=== PATIENT | male | born 1970 | race Caucasian/White ===

== ENCOUNTER 2023-09-01 09:40 | Outpatient (OUT) | payer MEDICAID, SELFPAY ==
[2023-09-01 10:12] LABS: Basophils Absolute Auto 0.1 10^3/uL (0.0-0.1); Basophils Percent Auto 0.8 % (0.2-2.0); Eosinophils Absolute Auto 0.2 10^3/uL (0.0-0.7); Eosinophils Percent Auto 2.2 % (0.9-7.0); Hematocrit 49.7 % (42.0-54.0); Hemoglobin 16.3 g/dL (14.0-18.0); Immature Granulocytes Abs Auto 0.03 10^3/uL (0.00-0.03); Immature Granulocytes Pct Auto 0.4 % (0.0-0.5); Lymphocytes Absolute Auto 2.1 10^3/uL (1.2-3.8); Lymphocytes Percent Auto 27.2 % (20.5-60.0); Mean Corpuscular HGB Conc 32.8 g/dL (29.9-35.2); Mean Corpuscular Hemoglobin 31.5 pg (25.9-34.0); Mean Corpuscular Volume 95.9 fL (80.0-94.0); Mean Platelet Volume 10.3 fL (9.5-13.5); Monocytes Absolute Auto 0.6 10^3/uL (0.3-0.8); Monocytes Percent Auto 7.8 % (1.7-12.0); Neutrophils Absolute Auto 4.9 10^3/uL (1.4-6.5); Neutrophils Percent Auto 61.6 % (43.0-75.0); Platelet Count 352 10^3/uL (150-450); Red Blood Count 5.18 10^6/uL (4.70-6.10); Red Cell Distribution Width 12.9 % (11.0-15.0); White Blood Count 7.9 10^3/uL (4.0-11.0)
[2023-09-01 10:26] LABS: Estimated Average Glucose 114 mg/dL; Glycohemoglobin A1C 5.6 % (4.5-6.2)
[2023-09-01 10:40] LABS: Prostate Specific Antigen Scrn 0.79 ng/mL (<=4.00)
[2023-09-01 11:41] LABS: BUN Creatinine Ratio 8.1; Calcium 9.4 mg/dL (8.5-10.1); Carbon Dioxide 28.7 mmol/L (21.0-32.0); Chloride 102 mmol/L (98-107); Estimated GFR (African America 55 (>=60); Estimated GFR (Non-African Ame 45 (>=60); Glucose 105 mg/dL (74-106); Potassium 3.7 mmol/L (3.5-5.1); Sodium 141 mmol/L (136-145)
[2023-09-01 11:42] LABS: Alanine Aminotransferase 33 U/L (16-63); Albumin Globulin Ratio 0.7; Albumin Level 3.4 g/dL (3.4-5.0); Alkaline Phosphatase 58 U/L (46-116); Aspartate Amino Transferase 22 U/L (15-37); Bilirubin Total 0.5 mg/dL (0.2-1.0); Globulin 4.6 g/dL
[2023-09-01 11:43] LABS: Chol HDL Ratio 4.1; Cholesterol 223 mg/dL (<=200); Free T3 2.57 pg/mL (2.18-3.98); HDL Cholesterol 54 mg/dL (40-60); Thyroid Stimulating Hormone 1.481 uIU/mL (0.358-3.740); Triglycerides 182 mg/dL (<=150); VLDL CHOLESTEROL 36.4 mg/dL
== END 2023-09-01 09:41 | disposition home or self-care (01) ==
LOC: LAB 09:43
PROVIDERS: PCP Family Medicine; Visit Provider Family Medicine
DX: R30.0 Dysuria (principal); E78.5 Hyperlipidemia, unspecified; R73.09 Other abnormal glucose; Z12.5 Encounter for screening for malignant neoplasm of prostate
CPT/HCPCS: 36415; 80053; 80061; 83036; 84436; 84443; 84481; 85025; G0103

== ENCOUNTER 2023-09-08 10:48 | Outpatient (OUT) | payer MEDICAID, SELFPAY ==
--- NOTE | 2023-09-08 | US_ITS ---
The [address] [address] Patient Name: PHILIPPE PHILLIP MRN: [id number] date: 1970 Sex: M Assigned Patient Location: US Current Patient Location: US Accession/Order Number: [id number] Exam Date: 09/08/2023 10:52 Report Date: 09/08/2023 11:43 At the request of: SAYRA WHITFIELD Procedure: US renal bladder EXAM: US renal bladder HISTORY: . Disorder of kidney and ureter N28.9 . COMPARISON: None. TECHNIQUE: Grayscale and color imaging was performed FINDINGS: Scanning of the right kidney demonstrates right kidney to measure 10.4 x 5.4 x 7.1 cm. Color-flow is noted. Within the renal pelvis there is marked hydronephrosis. There is also hypoechoic areas of the dilated calyces. Findings could represent the calculi in the region. There is slight renal cortical thinning on the right. Left kidney measures 10.7 x 4.9 x 6.5 cm. Color-flow is noted. No solid renal cortical masses or hydronephrosis is noted. Scanning of the bladder demonstrates the filled bladder volume was 745 mL. Within the base of the bladder there is a lobulated extensive echogenic solid mass measuring 6.4 x 5.9 x 6 cm. There is also a small amount amount of debris layering within the bladder. Post void residual was 362 mL. Left ureteral jet was noted. No right ureteral jet was noted. US/US renal bladder IMPRESSION: 1 marked hydronephrosis of the right kidney. There are questionable calcifications present and the calyces. 2. There is a lobulated solid mass in the base of the bladder measuring 6.4 x 5.9 x 6 cm. A neoplasm must be considered until proven otherwise. This could be causing Obstruction of the right ureter and the right hydronephrosis. 3. Left kidney appears unremarkable and no hydronephrosis is noted. 4. Left ureteral jet was noted. Right ureteral jet was not appreciated. 5. Post void residual was [address] of the abdomen and pelvis pre and post IV contrast is suggested for further evaluation. Electronically authenticated by: LORI LEDESMA Date: 09/08/2023 11:43
--- OUTSIDE RECORDS SUMMARY | 2023-09-08 10:50 | XMS_ITS | CCD ---
Author Name Unknown Address [facility] [place] [address] Organization [facility] Care Team Providers Care Machine Cloth Trimmer Name Role Phone DR SAYRA WHITFIELD Admitting Unavailable DR SAYRA WHITFIELD Attending Unavailable Encounters Encounter Date Encounter Type Care Provider Facility Start: 06-28-[address] SAYRA WHITFIELD Facility : Payers Date Payer Category Payer Unknown [id number] 1958 Self-pay [id number] Summary Purpose Family History No Family History Records Found Advance Directives No Advanced Directives Records Found Additional Source Comments (unrecognized sect ion and content) No Status Records Found INFORMATION SOURCE (unrecogn ized section and content) DATE CREATED AUTHOR 06/29/2022 The [facility] FOR RECORDS PERTAINING TO PATIENTS WHO ARE OR HAVE BEEN ENROLLED IN A CHEMICAL DEPENDENCY/SUBSTANCEABUSE PROGRAM, SOME INFORMATION MAY BE OMITTED. This clinical summary was aggregated from multiple sources. Caution should be exercised in using it in the provision of clinical care. This summary normalizes information from multiple sources, and as a consequence, information in this document may materially change the coding, format and clinical context of patient data. In addition, data may be omitted in some cases. CLINICAL DECISIONS SHOULD BE BASED ON THE PRIMARY CLINICAL RECORDS. [employer] [facility]. provides no warranty or guarantee of the accuracy or completeness of information in this document.
== END 2023-09-08 10:49 | disposition home or self-care (01) ==
LOC: US 10:48
PROVIDERS: PCP Family Medicine; Visit Provider Family Medicine
DX: N26.9 Renal sclerosis, unspecified (principal); N32.9 Bladder disorder, unspecified; N13.30 Unspecified hydronephrosis
CPT/HCPCS: 76770

== ENCOUNTER 2023-09-15 08:41 | Outpatient (OUT) | payer MEDICAID, SELFPAY ==
--- NOTE | 2023-09-15 | CT_ITS ---
[address] [address] Patient Name: PHILIPPE Perkins [facility] MRN: [id number] date: 1970 Sex: M Assigned Patient Location: CT Current Patient Location: Accession/Order Number: [id number] Exam Date: 09/15/2023 09:25 Report Date: 09/16/2023 17:42 At the request of: SAYRA WHITFIELD Procedure: CT abdomen pelvis wo/w con EXAM: CT abdomen pelvis wo/w con HISTORY: R93.89 COMPARISON: None. TECHNIQUE: Axial CT imaging was performed with and without contrast through the abdomen and pelvis. Multiplanar reformats were performed. Dose reduction techniques were achieved by using automated exposure control and/or adjustment of mA and/or kV according to patient size and/or use of iterative reconstruction technique. FINDINGS: Lung bases: Lung bases are clear. No pleural effusion. GI upper: Unremarkable. Liver: Normal size and contour. Gallbladder: No significant abnormality. No cholelithiasis. Biliary system: No intra or extrahepatic biliary ductal dilatation. Spleen: Normal size. Pancreas: Unremarkable. Adrenal glands: Normal adrenal glands. Kidneys/ureters: Normal contours. Severe right hydroureteronephrosis with obstructing lesion at the right UV junction. No nephrolithiasis or ureterolithiasis. Vessels: No aneurysm. Lymph Nodes: No lymphadenopathy. Small bowel: No wall thickening or dilatation. Colon: No wall thickening or dilatation. Appendix: No findings of appendicitis. Peritoneal cavity: No free fluid or pneumoperitoneum. Lower : There is a 5.3 x 4.7 cm enhancing lesion arising from the right urinary bladder wall as well as base, resulting in obstruction and possible invasion of right UV junction. Finding is highly suspicious for urinary bladder neoplasm. The prostate measures 4.3 cm. Invasion of the prostate cannot be excluded. Pelvic MRI with and without contrast and cystoscopy is recommended for better evaluation. Bones: No acute bony abnormality. Soft tissues: No acute finding. Additional findings: None. CT/CT abdomen pelvis wo/w con IMPRESSION: 5.3 x 4.7 cm enhancing lesion arising from the right urinary bladder wall as well as base, resulting in possible invasion of right UV junction and right UV junction obstruction and severe right hydroureteronephrosis. Finding is highly suspicious for urinary bladder neoplasm. Invasion of the prostate cannot be excluded. Pelvic MRI with and without contrast and cystoscopy is recommended for better evaluation. Electronically authenticated by: TERESITA GALVEZ Date: 09/16/2023 17:42
--- OUTSIDE RECORDS SUMMARY | 2023-09-15 08:43 | XMS_ITS | CCD ---
Author Name Unknown Address [facility] [place] [address] Organization [facility] Care Team Providers Care Client Engagement Specialist Name Role Phone DR SAYRA WHITFIELD Admitting Unavailable DR SAYRA WHITFIELD Attending Unavailable Encounters Encounter Date Encounter Type Care Provider Facility Start: 06-28-[address] SAYRA WHITFIELD Facility : Payers Date Payer Category Payer Unknown [id number] 1958 Self-pay [id number] Summary Purpose Family History No Family History Records Found Advance Directives No Advanced Directives Records Found Additional Source Comments (unrecognized sect ion and content) No Status Records Found INFORMATION SOURCE (unrecogn ized section and content) DATE CREATED AUTHOR 06/29/2022 The [facility] FOR RECORDS PERTAINING TO PATIENTS WHO ARE [...] BE BASED ON THE PRIMARY CLINICAL RECORDS. [facility] [employer] [facility]. provides no warranty or guarantee of the accuracy or completeness of information in this document.
== END 2023-09-15 08:42 | disposition home or self-care (01) ==
LOC: CT 08:41
PROVIDERS: PCP Family Medicine; Visit Provider Family Medicine
DX: R93.89 Abnormal findings on diagnostic imaging of other specified body structures (principal); N32.9 Bladder disorder, unspecified; N13.30 Unspecified hydronephrosis
CPT/HCPCS: 74178; Q9966

== ENCOUNTER 2023-09-20 11:00 | Outpatient (OUT) | payer MEDICAID, SELFPAY ==
--- NOTE | 2023-09-20 11:05 | XR_ITS ---
The [address] [address] Patient Name: PHILIPPE PHILLIP MRN: [id number] date: 1970 Sex: M Assigned Patient Location: [facility] Current Patient Location: [facility] Accession/Order Number: [id number] Exam Date: 09/20/2023 11:40 Report Date: 09/20/2023 12:14 At the request of: ORIANA SANTIAGO Procedure: XR chest 2V PROCEDURE: XR chest 2V DATE: 09/20/2023 10:40 AM FABRICATION ENGINEER COMPARISONS: None. CLINICAL INDICATION: 53 years Male Preop exam FINDINGS: The cardiomediastinal silhouette and pulmonary vasculature are within normal limits. The lungs are clear. There is no evidence of pleural effusion or pneumothorax. XR/XR chest 2V IMPRESSION: Chest radiograph is within normal limits. Electronically authenticated by: DENA FLORES Date: 09/20/2023 12:14
--- NOTE | 2023-09-20 11:05 | ECG_ITS ---
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
--- OUTSIDE RECORDS SUMMARY | 2023-09-20 11:23 | XMS_ITS | CCD ---
Author Name Unknown Address [address] [place] [address] Organization [facility] Care Team Providers Care Business Center Attendant Name Role Phone DR SAYRA JONES Admitting Unavailable DR SAYRA JONES Attending Unavailable Sonny SANTIAGO Attending Unavailable Sonny SANTIAGO Attending Unavailable Sonny SANTIAGO Attending Unavailable Allergies Allergy Classification Reported Allergen(s) Allergy Type Date of Onset Reaction(s) Facility (1 source) No Known Medication Allergies; Translations: [No Known Medication Allergies] Propensity to adverse reactions (disorder) [facility] Repository Results Test Name Value Interpretation Reference Range Facil ity Consent for Procedure/Surger yon 09-19-2023 Consent for Procedure/Surgery [id number]#1.0 0TIFF [facility] Formson 09-19-2023 Forms [id number]#1.0 0TIFF Normal [facility] Lab Reportson 09-19-2023 Lab Reports [id number]#1.0 0TIFF Normal [facility] RAD - CT Reporton 09-19-2023 RAD - CT Report [id number]#1. 00TIFF [facility] RAD - Ultrasound Reporton RAD - Ultrasound Report [id number]#1. 00TIFF Normal [facility] Screenson 09-19-2023 Screens [id number]#1. 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 Discharge Vitals Heart Rate (Peripheral) 85 Blood Pressure 137/92 Height 178 cm Height 70 in Weight 82.7 kg Weight 181.94 lb BMI 26.1 What to do next Scheduled Follow-Up Appointments Sunday 9:45 AM EST With: Sonny SANTIAGO MD Where: [facility] Patient Educationon 09-18-19 24 Patient Education Urology Hydronephrosis Hydronephrosis is the swelling of one or both kidneys due to a blockage that stops urine from flowing out of the body. Kidneys filter waste from the blood and produce urine. This condition can lead to kidney failure and may become life-threatening if not treated promptly. What are the causes? In infants and children, common causes include problems that occur when a baby is developing in the womb. These can include problems in the kidneys or in the tubes that drain urine into the bladder (ureters). In adults, common causes include: ? Kidney stones. ? . ? A tumor or cyst in the abdomen or pelvis. ? An enlarged prostate gland. Other causes include: ? Bladder infection. ? Scar tissue from a previous surgery or injury. ? A blood clot. ? Cancer of the prostate, bladder, uterus, ovary, or colon. What are the signs or symptoms? Symptoms of this condition include: ? Pain or discomfort in your side (flank) or abdomen. ? Swelling in your abdomen. ? Nausea and vomiting. ? Fever. ? Pain when passing urine. ? Feelings of urgency when you need to urinate. ? Urinating more often than normal. In some cases, you may not have any symptoms. How is this diagnosed? This condition may be diagnosed based on: ? Your symptoms and medical history. ? A physical exam. ? Blood and urine tests. ? Imaging tests, such as an ultrasound, CT scan, or MRI. ? A procedure to look at your urinary tract and bladder by inserting a scope into the urethra (cystoscopy). How is this treated? Treatment for this condition depends on where the blockage is, how long it has been there, and what caused it. The goal of treatment is to remove the blockage. Treatment may include: ? Antibiotic medicines to treat or prevent infection. ? A procedure to place a small, thin tube (stent) into a blocked ureter. The stent will keep the ureter open so that urine can drain through it. ? A nonsurgical procedure that crushes kidney stones with shock waves (extracorporeal shock wave lithotripsy). ? If kidney failure occurs, treatment may include dialysis or a kidney transplant. Follow these instructions at home: ? Take gtqu-lzl-tejjgis and prescription medicines only as told by your health care provider. ? If you were prescribed an antibiotic medicine, take it exactly as told by your health care provider. Do not stop taking the antibiotic even if you start to feel better. ? Rest and return to your normal activities as told by your health care provider. Ask your health care provider what activities are safe for you. ? Drink enough fluid to keep your urine pale yellow. ? Keep all follow-up visits. This is important. Contact a health care provider if: ? You continue to have symptoms after treatment. ? You develop new symptoms. ? Your urine becomes cloudy or bloody. ? You have a fever. Get help right away if: ? You have severe flank or abdominal pain. ? You cannot drink fluids without vomiting. Summary ? Hydronephrosis is the swelling of one or both kidneys due to a blockage that stops urine from flowing out of the body. ? Hydronephrosis can lead to kidney failure and may become life-threatening if not treated promptly. ? The goal of treatment is to remove the blockage. It may include a procedure to insert a stent into a blocked ureter, a procedure to break up kidney stones, or taking antibiotic medicines. ? Follow your health care provider's instructions for taking care of yourself at home, including instructions about drinking fluids, taking medicines, and limiting activities. This information is not intended to replace advice given to you by your health care provider. Make sure you discuss any questions you have with your health care provider. Document Revised: 11/16/2020 Document Reviewed: 11/16/2020 Elsevier Patient Education ? 2022 [employer]. Normal [facility] Provider Letteron 09-18-2023 Provider Letter September 18, 2023 PH[facility]PE [facility] [address] [place] [address] : 1970 To Whom It May Concern, Please excuse above patient from work. Date of Illness: From: 09/18/[address] Santiago 09/20/23 -Presurgery testing appointment at [facility] 09/27/23- Surgery at [facility] 10/08/23- Follow up appointment after surgery To: to be determined May Return to Work On: 09/19/23 Restrictions: N/A Comments: Patient is having a surgical procedure with Dr. Santiago on 09/27/23 at the [facility] to remove a bladder mass. Please excuse him for the required testing and appointments. Sincerely, [facility] Dr. Sonny Santiago [facility] Urology Office/Clinic Noteon 09-18-2023 Urology Office/Clinic Note HPI Staff Burrell is a 53 y.o. male new patient here for bladder mass w/ hydronephrosis. Referred by Dr. Jones. CT abd/p done on 09/15/23 showed 5.3x4.7cm enhancing lesion arising from the urinary bladder wall as well as base, resulting in possible invasion of RT UV junction, sever RT hydroureteronephrosis. Renal US done on 09/08/23 showed marked hydronephrosis of RT kidney, lobulated solid mass in the base of the bladder measuring 6.4x5.9x6cm, post void residual 362mL. Dysuria: yes painful Incomplete bladder emptying: yes Hematuria: yes last seen 3 days ago Frequency: yes Urgency: yes Nocturia: every 2 hours Stream: steady stream sometimes weak depending on how much fluid intake Leaking: mild Post void dripping: denies Wearing pads/ Depends: denies Urge incontinence: denies Stress incontinence: denies Incontinence without Sensory Awareness: denies Abdominal pain: denies Flank pain: mild RT side flank pain Sexual complaints: _ History of Present Illness Tests reviewed: reviewed UA and External Records. I have reviewed the previous health record information and history for this patient from External Provider. I have reviewed and verified the staff HPI to be accurate for this encounter. There have been no associated fever, chills, flank pain, or blood in the urine. Denies any urinary infections since last encounter. Review of Systems PHQ Score Initial Depression Screen Score: 0 SCORE ROS - Provider Constitutional: denies weight loss, denies hot flashes. Eyes: denies eye problems. Gastrointestinal: denies nausea, denies vomiting. Cardiovascular: denies chest pain or angina. Integumentary: no dryness Musculoskeletal: denies musculoskeletal symptoms. ENMT: denies otolaryngeal symptoms. Respiratory: no shortness of breath. Heme/Lymph: denies easy bleeding tendency, denies easy bruising tendency. Psychiatric: no confusion, no anxiety. Genitourinary: See HPI. Physical Exam Vitals & Measurements HR: 85(Peripheral) BP: 137/92 HT: 70 in HT: 178 cm WT: 82.7 kg WT: 181.94 lb BMI: 26.1 General Appearance: alert, no distress, well nourished, well developed male. Head: normocephalic . Eyes: normal orbit and globe. ENMT: normal examination of external ears. Chest: Lungs CTA, respirations non labored. Cardiovascular: regular rate and rhythm. Abdomen: soft, non distended, no tenderness, no mass or organomegaly, no hernia. Genitourinary: normal scrotum, normal testes, normal urethra, normal epididymis, normal vas deferens/spermatic cord. Flank Pain: none. Bladder: nonpalpable. Penis: normal shaft, normal glans. Prostate: normal prostate, estimated weight 25 gms, no hard nodule observed. Lymph Nodes: unremarkable palpation of the cervical area. Skin: warm, dry, no bruising. Psychiatric: cooperative, affect appropriate for age, normal judgement, euthymic mood. Assessment/Plan 1. Bladder mass (N32.89: Other specified disorders of bladder) CT abd/p done on 09/15/23 showed 5.3x4.7cm enhancing lesion arising from the urinary bladder wall as well as base, resulting in possible invasion of RT UV junction, sever RT hydroureteronephrosis. Renal US done on 09/08/23 showed marked hydronephrosis of RT kidney, lobulated solid mass in the base of the bladder measuring 6.4x5.9x6cm, post void residual 362mL. UA today shows large blood and no signs of infection. Discussed imaging results with pt. Advised pt that there is a high chance that this is bladder cancer. Counseled pt on the next steps of testing and possible forms of treatment for the pt. Counseled pt on how important it is to get treatment if the path report shows high grade invasive bladder cancer. All questions/concerns were discussed. Pt to call the office if he encounters any issues prior. Pt acknowledges understanding. -Will schedule Cysto with TURBT, Rt Ureteroscopy, and possible Rt stent placement. The procedure risks, benefits, details, and treatment alternatives have been discussed with the patient. These include bleeding -- sometimes to the point of hemorrhaging, infection, risk of bladder perforation, recurrence of bladder tumor in 60-70% of patients, need for indwelling catheter for a variable amount of time, as well as the rare risk of needing an open operation to repair the bladder, among others. Additional therapy as well as follow-up bladder evaluation will most likely be required. Full informed consent has been obtained. Will order General anesthesia. -See #2 2. Hydronephrosis (N13.30: Unspecified hydronephrosis) Counseled pt on what the hydronephrosis could be caused from. Labs 09/01/23 - CREA 1.61 and BUN 13.0. -See #1 3. Incomplete bladder emptying (R33.9: Retention of urine, unspecified) PVR today was 234mL. Advised pt that he does not empty his bladder. Pt states that he just started to have abdominal pain when he tries to void, would barely void anything. -See #1 4. Gross hematuria (R31.0: Gross hematuria) Pt states that he had p (more content not included)... Normal [facility] Comment on above: Result Comment: Elec tronically Signed By: Sonny SANTIAGO MD\.br\Date and Time Signed: 09/18/23 09:40 EST\.br\Electronically Co-Signed By: Angle Rivas.br\Date and Time Co-Signed: 09/18/23 09:37 EST Encounters Encounter Date Encounter Type Care Provider Facility Start: 10-08-2023 ambulatory Sonny Porras ty:GREG Chauhan Start: 09-27-2023 ambulatory Sonny Underwoodi ty:[id number] Start: 09-18-2023 End: 09-19-2023 ambulatory Sonny SANTIAGO Facility:[facility] Start: 09-17-2023 ambulatory Sonny SANTIAGO Facility :[facility] Start: 06-28-2022 ambulatory SAYRA JONES Facility :[facility] Payers Date Payer Category Payer Private Health Insurance [id number] 1970 Unknown [id number] 1970 Unknown [id number] 1970 Unknown [id number] 1958 Self-pay [id number] Summary Purpose Family History No Family History Records FoundNo Family History Records Found Advance Directives No Advanced Directives Records FoundNo Advanced Directives Records Found Additional Source Comments (unrecognized sect ion and content) No Status Records FoundNo Status Records Found INFORMATION SOURCE (unrecogn ized section and content) DATE CREATED AUTHOR 06/29/2022 [facility] DATE CREATED AUTHOR AUTHOR'S JANET CALLAHAN 09/19/2023 [facility] FOR RECORDS PERTAINING TO PATIENTS WHO [...] BE BASED ON THE PRIMARY CLINICAL RECORDS. [employer] provides no warranty or guarantee of the accuracy or completeness of information in this document.
[2023-09-20 12:07] LABS: Anion Gap 10.6; BUN Creatinine Ratio 9.2; Calcium 9.2 mg/dL (8.5-10.1); Carbon Dioxide 28.6 mmol/L (21.0-32.0); Chloride 99 mmol/L (98-107); Estimated GFR (African America 58 (>=60); Estimated GFR (Non-African Ame 48 (>=60); Glucose 100 mg/dL (74-106); Potassium 4.2 mmol/L (3.5-5.1); Sodium 134 mmol/L (136-145)
[2023-09-20 12:08] LABS: Basophils Absolute Auto 0.1 10^3/uL (0.0-0.1); Basophils Percent Auto 1.1 % (0.2-2.0); Eosinophils Absolute Auto 0.1 10^3/uL (0.0-0.7); Eosinophils Percent Auto 1.7 % (0.9-7.0); Hematocrit 46.7 % (42.0-54.0); Hemoglobin 15.6 g/dL (14.0-18.0); Immature Granulocytes Abs Auto 0.02 10^3/uL (0.00-0.03); Immature Granulocytes Pct Auto 0.3 % (0.0-0.5); Lymphocytes Absolute Auto 1.7 10^3/uL (1.2-3.8); Lymphocytes Percent Auto 24.8 % (20.5-60.0); Mean Corpuscular HGB Conc 33.4 g/dL (29.9-35.2); Mean Corpuscular Hemoglobin 31.5 pg (25.9-34.0); Mean Corpuscular Volume 94.2 fL (80.0-94.0); Mean Platelet Volume 10.7 fL (9.5-13.5); Monocytes Absolute Auto 0.5 10^3/uL (0.3-0.8); Monocytes Percent Auto 7.7 % (1.7-12.0); Neutrophils Absolute Auto 4.3 10^3/uL (1.4-6.5); Neutrophils Percent Auto 64.4 % (43.0-75.0); Platelet Count 305 10^3/uL (150-450); Red Blood Count 4.96 10^6/uL (4.70-6.10); Red Cell Distribution Width 12.8 % (11.0-15.0); White Blood Count 6.7 10^3/uL (4.0-11.0)
[2023-09-20 12:09] LABS: INR 0.96; Partial Thromboplastin Time 27.2 sec (22.3-36.2); Prothrombin Time 10.2 sec (9.0-11.6)
== END 2023-09-20 11:01 | disposition home or self-care (01) ==
LOC: PST 11:01
PROVIDERS: PCP Family Medicine; Visit Provider Urology
DX: Z01.812 Encounter for preprocedural laboratory examination (principal); Z01.810 Encounter for preprocedural cardiovascular examination; R19.00 Intra-abdominal and pelvic swelling, mass and lump, unspecified site; R31.9 Hematuria, unspecified; N13.30 Unspecified hydronephrosis
CPT/HCPCS: 71046; 80048; 85025; 85610; 85730; 93005

== ENCOUNTER 2023-11-13 08:58 | Outpatient (OUT) | payer MEDICAID, SELFPAY ==
--- NOTE | 2023-11-13 09:01 | US_ITS ---
The [address] [address] Patient Name: PHILIPPE PHILLIP MRN: [id number] date: 1970 Sex: M Assigned Patient Location: Current Patient Location: Accession/Order Number: [id number] Exam Date: 11/13/2023 09:02 Report Date: 11/14/2023 09:25 At the request of: RUDY WEN Procedure: US renal bladder EXAM: US renal bladder HISTORY: . malignant neoplasm of trigone of urinary bladder C67.0 . COMPARISON: None. TECHNIQUE: Grayscale and color imaging was performed FINDINGS: Scanning of the right kidney demonstrates the right kidney to measure 9 x 4.6 x 4.2 cm. There is an echogenic area in the right renal pelvis consistent with a nephrostomy tube. There is slight hydronephrosis. No renal cortical masses are noted. Color-flow is noted. Left kidney measures 10.2 x 4.8 x 4.7 cm. Color-flow is noted. No solid renal cortical masses or hydronephrosis is noted. Scanning of the bladder demonstrates lobulations of the posterior inferior wall of the bladder. Bladder volume was 260 mL. Bilateral ureteral jets were noted. No post void residual was noted. US/US renal bladder IMPRESSION: 1. Normal-appearing left kidney. 2. Nephrostomy tube noted in the right renal pelvis. There is slight right hydronephrosis. 3. There is lobulation along the posterior inferior aspect of the bladder wall. Findings could represent debris, incomplete distention of the bladder bladder thickening, or mass. 4. Prevoid volume was 260 mL and bilateral ureteral jets were noted. 5. No post void residual. Electronically authenticated by: LORI LEDESMA Date: 11/14/2023 09:25
--- OUTSIDE RECORDS SUMMARY | 2023-11-13 09:07 | XMS_ITS | CCD ---
Author Organization [facility] Care Team Providers Care Helpdesk Administrator Name Role Phone DR SAYRA WHITFIELD Admitting Unavailable DR SAYRA WHITFIELD Attending Unavailable Sayra Whitfield Primary Care Physician Unavailable Primary Care Provider Moses Villarreal APRN.Fermín DHALIWAL Unavailable Vicente Sanchez MD Unavailable [phone] Arturo PABLO, [place] Unavailable [phone] Sonny SANTIAGO Attending Unavailable Sonny SANTIAGO Attending Unavailable Sonny SANTIAGO Admitting Unavailable Alonzo FALLobir Lauren Consulting Unavailable Sonny SANTIAGO Referring Unavailable Chelo FALL Consulting Unavailable Alonzo FALLobir R Consulting Unavailable Sonny SANTIAGO Attending Unavailable Sonny SANTIAGO Attending Unavailable Sayra Whitfield MD Primary Care Provider VENKATESH SMALL Attending Unavailable SAYRA WHITFIELD Primary Care Unavailable AHSAN RODRÍGUEZ Referring Unavailable KARUPPASAMY, KARUNAKARAVEL Attending Unava ilable CHINMAY, KARUNAKARAVEL Admitting Unava ilable Nelida Donaldson RD Unavailable VICENTE SANCHEZ Attending Unavailable SAYRA WHITFIELD Primary Care Unavailable NELIDA DONALDSON Attending UnavailSAYRA Chavez Primary Care Unavailable VICENTE SANCHEZ Referring Unavailable SAYRA WHITFIELD Primary Care Unavailable SAYRA WHITFIELD Primary Care Unavailable VICENTE SANCHEZ Attending Unavailable SAYRA WHITFIELD Primary Care Unavailable VICENTE SANCHEZ Referring Unavailable SAYRA WHITFIELD Primary Care Unavailable VENKATESH SMALL Referring Unavailable VICENTE SANCHEZ Attending Unavailable VENKATESH SMALL Referring Unavailable SAYRA WHITFIELD Primary Care Unavailable SAYRA WHITFIELD Primary Care Unavailable Allergies Allergy Classification Reported Allergen(s) Allergy Type Date of Onset Reaction(s) Facility (1 source) No Known Medication Allergies; Translations: [No Known Medication Allergies] Propensity to adverse reactions (disorder) [facility] Repository Medications Current Medications Medication Drug Class(es) Dates Sig (Normalized) Sig (Original) cephalexin 500 mg oral capsule (1 source) Cephalosporin Antibacterial Start: 09-27-2023 take 1 capsule by mouth every twelve hours cephalexin 500 mg Cap 500 mg = 1 cap(s), Oral, q12hr, # 20 cap(s), Refills(s) 0, Pharmacy: [facility]/pharmacy #[id number], 178.5, cm, 09/27/23 11:53:00 EST, Height/Length Dosing, 81, kg, 09/27/23 11:53:00 EST, Weight Dosing Start Date: 09/27/23 Status: Ordered iv contrast (will be provided with radiology test) (2 sources) Start: 10-16-2023 End: 10-17-2023 iv contrast (will be provided with radiology test) Indications: Malignant neoplasm of urinary bladder, unspecified site (HCC) CT Chest W -Inject, intravenously, once for 1 dose.No IV access, insert saline lock prior to the beginning of sedation, infusion, injection of imaging exam. Discontinue saline lock post exam. If Pt. has a central line or IVAD, may access for administration according to line specific nursing protocol. Once exam is complete flush line and de-access according to line specific nursing protocol in the CT contrast administration guidelines link. 1 Each 0 10/16/2023 10/17/2023 Active Start: 10-16-2023 End: 10-17-2023 iv contrast (will be provide d with radiology test) Indications: Malignant neoplasm of urinary bladder, unspecified site (HCC) CT Urogram WO/W Inject, intravenously, once for 1 dose.No IV access, insert saline lock prior to the beginning of sedation, infusion, injection of imaging exam. Discontinue saline lock post exam. If Pt. has a central line or IVAD, may access for administration according to line specific nursing protocol. Once exam is complete flush line and de-access according to line specific nursing protocol in the CT contrast administration guidelines link. 1 Each 0 10/16/2023 10/17/2023 Active Comment on above: CT Chest W -Inject, intravenously, once for 1 dose.No IV access, insert saline lock prior to the beginning of sedation, infusion, injection of imaging exam. Discontinue saline lock post exam. If Pt. has a central line or IVAD, may access for administration according to line specific nursing protocol. Once exam is complete flush line and de-access according to line specific nursing protocol in the CT contrast administration guidelines link. CT Urogram WO/W Inje ct, intravenously, once for 1 dose.No IV access, insert saline lock prior to the beginning of sedation, infusion, injection of imaging exam. Discontinue saline lock post exam. If Pt. has a central line or IVAD, may access for administration according to line specific nursing protocol. Once exam is complete flush line and de-access according to line specific nursing protocol in the CT contrast administration guidelines link. mirtazapine 30 mg oral tablet (17 sources) Start: 09-18-19 take 1 tablet by mouth once daily at bedtime mirtazapine 30 mg Tab 30 mg = 1 tab(s), Oral, Once a day (at bedtime), Refills(s) 0, Depression Start Date: 09/18/23 Status: Ordered Comment on above: Take 30 mg by mouth daily at bedtime. 24 hr oxybutynin chloride 10 mg extended release oral tablet (1 source) Cholinergic Muscarinic Antagonist Start: 09-27-19 take 1 tablet by mouth once daily oxybutynin 10 mg ER Tab 10 mg = 1 tab(s), Oral, Daily, # 7 tab(s), Refills(s) 0, Pharmacy: [facility]/pharmacy #[id number], 178.5, cm, 09/27/23 11:53:00 EST, Height/Length Dosing, 81, kg, 09/27/23 11:53:00 EST, Weight Dosing Start Date: 09/27/23 Status: Ordered 1000 ml sodium chloride 9 mg/ml injection (1 source) Start: 10-16-19 End: 10-16-19 0.9 % sodium chloride (NACL 0.9%) infusion Indications: Malignant neoplasm of urinary bladder, unspecified site (HCC) Administer at rate defined per CT contrast administration specifications. To be provided with radiology test. 150 mL 0 10/16/2023 10/16/2023 Active Comment on above: Administer at rate d efined per CT contrast administration specifications. To be provided with radiology test. Completed/Discontinued Medications Medication Drug Class(es) Dates Sig (Normalized) Sig (Original) ondansetron 8 mg oral tablet (13 sources) Serotonin-3 Receptor Antagonist Start: 10-24-2023 take 1 tablet by mouth every eight hours as needed ondansetron (ZOFRAN) 8 mg tablet Take 1 tablet by mouth every 8 hours as needed for nausea/vomiting. 90 tablet 1 10/24/2023 Active Comment on above: Take 1 tablet by raad th every 8 hours as needed for nausea/vomiting. prochlorperazine 10 mg oral tablet (13 sources) Phenothiazine Start: 10-24-2023 take 1 tablet by mouth every six hours as needed prochlorperazine (COMPAZINE) 10 mg tablet Take 1 tablet by mouth every 6 hours as needed. 100 tablet 1 10/24/2023 Active Comment on above: Take 1 tablet by raad th every 6 hours as needed. Problems Problem Classification Problem Date Documented Date Episodic/Chronic Cancer of bladder (20 sources) Malignant tumor of urinary bladder; Translations: [Malignant neoplasm of bladder, unspecified] Onset: 4 10-16-2023 Chronic Disorders of lipid metabolism (1 source) Hypercholesterolemia 09-18-2023 Chronic Genitourinary symptoms and ill-defined conditions (2 sources) Richard hematuria; Translations: [Incomplete emptying of bladder] 09-18-2023 Episodic Hyperplasia of prostate (1 source) Benign prostatic hypertrophy with outflow obstruction 09-18-2023 Chronic Mood disorders (2 sources) Depressive disorder; Translations: [Depression, unspecified] Onset: 4 Chronic Other aftercare (1 source) Long-term current use of drug therapy; Translations: [Other detention (current) drug therapy] Onset: 4 Episodic Other diseases of bladder and urethra (1 source) Disorder of bladder; Translations: [Other specified disorders of bladder] Onset: 4 Chronic Other diseases of bladder and urethra (1 source) Mass of urinary bladder 09-18-2023 Chronic Other diseases of kidney and ureters (5 sources) Hydronephrosis; Translations: [Other hydronephrosis] 09-18-2023 Episodic Other diseases of kidney and ureters (1 source) Unspecified hydronephrosis; Translations: [Hydronephrosis, unspecified hydronephrosis type] Onset: 4 Episodic Other screening for suspected conditions (not mental disorders or infectious disease) (1 source) Blood chemistry abnormal; Translations: [Other specified abnormal findings of blood chemistry] Onset: 4 Episodic Screening and history of mental health and substance abuse codes (1 source) Ex-smoker 09-18-2023 Episodic Results Test Name Value Interpretation Reference Range Facility Basic metabolic 2000 panelon 11-12-2023 Anion gap [Moles/Vol] 14 mmol/L Normal 9-18 [facility] Comment on above: Order Comment: Speci men Type: BLOOD SPECIMENOrdering Facility: [facility] Address: [address] [place] [address] Performed By: #### 2 4321-2 ####[facility] LABCLIA [id number] [place] [address] Calcium [Mass/Vol] 10.4 mg/dL High 8.5-10.2 [facility] Comment on above: Order Comment: Speci men Type: BLOOD SPECIMENOrdering Facility: [facility] Address: [address] [place] [address] Performed By: #### 2 4321-2 ####[facility] LABCLIA [id number] [place] [address] Chloride [Moles/Vol] 99 mmol/L Normal 97-105 [facility] Comment on above: Order Comment: Speci men Type: BLOOD SPECIMENOrdering Facility: [facility] Address: [address] [place] [address] Performed By: #### 2 4321-2 ####[facility] LABCLIA [id number] [place] [address] CO2 [Moles/Vol] 26 mmol/L Normal 22-30 [facility] Comment on above: Order Comment: Speci men Type: BLOOD SPECIMENOrdering Facility: [facility] Address: [address] [place] [address] Performed By: #### 2 4321-2 ####[facility] LABCLIA [id number] [place] [address] Creatinine [Mass/Vol] 1.41 mg/dL High 0.73-1.22 [facility] Comment on above: Order Comment: Speci men Type: BLOOD SPECIMENOrdering Facility: [facility] Address: [address] [place] [address] Performed By: #### 2 4321-2 ####[facility] LABCLIA [id number] [place] [address] Creatinine and Glomerular filtration rate.predicted panel (S/P/Bld) 60 mL/min/1.73m??? Normal >=60 [facility] Comment on above: Order Comment: Speci men Type: BLOOD SPECIMENOrdering Facility: [facility] Address: [address] [place] [address] Result Comment: Tania mated Glomerular Filtration Rate (eGFR) is calculated using the 2020 CKD-EPI creatinine equation. This equation utilizes serum creatinine, sex, and age as parameters. The creatinine assay has traceable calibration to isotope dilution-mass spectrometry. Refer to KDIGO guidelines for clinical interpretation. In patients with unstable renal function, e.g. those with acute kidney injury, the eGFR may not accurately reflect actual GFR. Performed By: #### 2 4321-2 ####[facility] LABCLIA [id number] [place] [address] Glucose [Mass/Vol] 193 mg/dL High 74-99 [facility] Comment on above: Order Comment: Speci men Type: BLOOD SPECIMENOrdering Facility: [facility] Address: [address] [place] [address] Result Comment: The [place] Diabetes Association (ADA) provides guidance for cutoff values for fasting glucose and random glucose. The ADA defines fasting as no caloric intake for at least 8 hours. Fasting plasma glucose results between 100 to 125 mg/dL indicate increased risk for diabetes (prediabetes). Fasting plasma glucose results greater than or equal to 126 mg/dL meet the criteria for diagnosis of diabetes. In the absence of unequivocal hyperglycemia, results should be confirmed by repeat testing. In a patient with classic symptoms of hyperglycemia or hyperglycemic crisis, random plasma glucose results greater than or equal to 200 mg/dL meet the criteria for diagnosis of diabetes. Reference: Standards of Medical Care in Diabetes 2016, [place] [employer]. Diabetes Care. 2016.39(Suppl 1). Performed By: #### 2 4321-2 ####[facility] LABCLIA [id number] [place] [address] Potassium [Moles/Vol] 4.1 mmol/L Normal 3.7-5.1 [facility] Comment on above: Order Comment: Speci men Type: BLOOD SPECIMENOrdering Facility: [facility] Address: [address] [place] [address] Performed By: #### 2 4321-2 ####[facility] LABCLIA [id number] [place] [address] Sodium [Moles/Vol] 139 mmol/L Normal 136-144 [facility] Comment on above: Order Comment: Speci men Type: BLOOD SPECIMENOrdering Facility: [facility] Address: [address] [place] [address] Performed By: #### 2 4321-2 ####[facility] LABCLIA [id number] [place] [address] Urea nitrogen [Mass/Vol] 25 mg/dL High 9-24 [facility] Comment on above: Order Comment: Speci men Type: BLOOD SPECIMENOrdering Facility: [facility] Address: [address] [place] [address] Performed By: #### 2 4321-2 ####[facility] LABIA [id number] [place] [address] CBC W Auto Differential pane l (Bld)on 11-12-2023 Basophils (Bld) [#/Vol] 0.05 10*3/uL Normal <0.11 [facility] Comment on above: Order Comment: Speci men Type: BLOOD SPECIMENOrdering Facility: [facility] Address: [address] [place] [address] Performed By: #### 5 7021-8 ####[facility] LABCLIA [id number] [place] [address] Basophils/100 WBC (Bld) 0.9 % Normal [facility] Comment on above: Order Comment: Speci men Type: BLOOD SPECIMENOrdering Facility: [facility] Address: [address] [place] [address] Performed By: #### 5 7021-8 ####[facility] LABCLIA [id number] [place] [address] Differential cell count method Nom (Bld) Auto Normal [facility] Comment on above: Order Comment: Speci men Type: BLOOD SPECIMENOrdering Facility: [facility] Address: [address] [place] [address] Performed By: #### 5 7021-8 ####[facility] LABCLIA [id number] [place] [address] Eosinophils (Bld) [#/Vol] 0.11 10*3/uL Normal <0.46 [facility] Comment on above: Order Comment: Speci men Type: BLOOD SPECIMENOrdering Facility: [facility] Address: [address] [place] [address] Performed By: #### 5 7021-8 ####[facility] LABCLIA [id number] [place] [address] Eosinophils/100 WBC (Bld) 2.0 % Normal [facility] Comment on above: Order Comment: Speci men Type: BLOOD SPECIMENOrdering Facility: [facility] Address: [address] [place] [address] Performed By: #### 5 7021-8 ####[facility] LABCLIA [id number] [place] [address] Erythrocyte distribution width (RBC) [Ratio] 11.9 % Normal 11.5-15.0 [facility] Comment on above: Order Comment: Speci men Type: BLOOD SPECIMENOrdering Facility: [facility] Address: [address] [place] [address] Performed By: #### 5 7021-8 ####[facility] LABCLIA [id number] [place] [address] Hematocrit (Bld) [Volume fraction] 40.9 % Normal 39.0-51.0 [facility] Comment on above: Order Comment: Speci men Type: BLOOD SPECIMENOrdering Facility: [facility] Address: [address] [place] [address] Performed By: #### 5 7021-8 ####[facility] LABIA [id number] [place] [address] Hemoglobin (Bld) [Mass/Vol] 14.0 g/dL Normal 13.0-17.0 [facility] Comment on above: Order Comment: Speci men Type: BLOOD SPECIMENOrdering Facility: [facility] Address: [address] [place] [address] Performed By: #### 5 7021-8 ####[facility] LABCLIA [id number] [place] [address] Immature granulocytes (Bld) [#/Vol] 0.04 10*3/uL Normal <0.10 [facility] Comment on above: Order Comment: Speci men Type: BLOOD SPECIMENOrdering Facility: [facility] Address: [address] [place] [address] Performed By: #### 5 7021-8 ####[facility] LABCLIA [id number] [place] [address] Immature granulocytes/100 WBC (Bld) 0.7 % Normal [facility] Comment on above: Order Comment: Speci men Type: BLOOD SPECIMENOrdering Facility: [facility] Address: [address] [place] [address] Performed By: #### 5 7021-8 ####[facility] LABCLIA [id number] [place] [address] Lymphocytes (Bld) [#/Vol] 1.44 10*3/uL Normal 1.00-4.00 [facility] Comment on above: Order Comment: Speci men Type: BLOOD SPECIMENOrdering Facility: [facility] Address: [address] [place] [address] Performed By: #### 5 7021-8 ####[facility] LABCLIA [id number] [place] [address] Lymphocytes/100 WBC (Bld) 25.9 % Normal [facility] Comment on above: Order Comment: Speci men Type: BLOOD SPECIMENOrdering Facility: [facility] Address: [address] [place] [address] Performed By: #### 5 7021-8 ####[facility] LABIA [id number] [place] [address] MCH (RBC) [Entitic mass] 31.1 pg Normal 26.0-34.0 [facility] Comment on above: Order Comment: Speci men Type: BLOOD SPECIMENOrdering Facility: [facility] Address: [address] [place] [address] Performed By: #### 5 7021-8 ####[facility] LABCLIA [id number] [place] [address] MCHC (RBC) [Mass/Vol] 34.2 g/dL Normal 30.5-36.0 [facility] Comment on above: Order Comment: Speci men Type: BLOOD SPECIMENOrdering Facility: [facility] Address: [address] [place] [address] Performed By: #### 5 7021-8 ####[facility] LABIA [id number] [place] [address] MCV (RBC) [Entitic vol] 90.9 fL Normal 80.0-100.0 [facility] Comment on above: Order Comment: Speci men Type: BLOOD SPECIMENOrdering Facility: [facility] Address: [address] [place] [address] Performed By: #### 5 7021-8 ####[facility] LABCLIA [id number] [place] [address] Monocytes (Bld) [#/Vol] 0.41 10*3/uL Normal <0.87 [facility] Comment on above: Order Comment: Speci men Type: BLOOD SPECIMENOrdering Facility: [facility] Address: [address] [place] [address] Performed By: #### 5 7021-8 ####[facility] LABCLIA [id number] [place] [address] Monocytes/100 WBC (Bld) 7.4 % Normal [facility] Comment on above: Order Comment: Speci men Type: BLOOD SPECIMENOrdering Facility: [facility] Address: [address] [place] [address] Performed By: #### 5 7021-8 ####[facility] LABCLIA [id number] [place] [address] Neutrophils (Bld) [#/Vol] 3.50 10*3/uL Normal 1.45-7.50 [facility] Comment on above: Order Comment: Speci men Type: BLOOD SPECIMENOrdering Facility: [facility] Address: [address] [place] [address] Performed By: #### 5 7021-8 ####[facility] LABCLIA [id number] [place] [address] Neutrophils/100 WBC (Bld) 63.1 % Normal [facility] Comment on above: Order Comment: Speci men Type: BLOOD SPECIMENOrdering Facility: [facility] Address: [address] [place] [address] Performed By: #### 5 7021-8 ####[facility] LABCLIA [id number] [place] [address] Nucleated RBC (Bld) [#/Vol] 10*3/uL Normal <0.01 [facility] Comment on above: Order Comment: Speci men Type: BLOOD SPECIMENOrdering Facility: [facility] Address: [address] [place] [address] Performed By: #### 5 7021-8 ####[facility] LABCLIA [id number] [place] [address] Nucleated RBC/100 WBC (Bld) [Ratio] 0.0 /100 WBC Normal [facility] Comment on above: Order Comment: Speci men Type: BLOOD SPECIMENOrdering Facility: [facility] Address: [address] [place] [address] Performed By: #### 5 7021-8 ####[facility] LABCLIA [id number] [place] [address] Platelet mean volume (Bld) [Entitic vol] 9.8 fL Normal 9.0-12.7 [facility] Comment on above: Order Comment: Speci men Type: BLOOD SPECIMENOrdering Facility: [facility] Address: [address] [place] [address] Performed By: #### 5 7021-8 ####[facility] LABIA [id number] [place] [address] Platelets (Bld) [#/Vol] 221 10*3/uL Normal 150-400 [facility] Comment on above: Order Comment: Speci men Type: BLOOD SPECIMENOrdering Facility: [facility] Address: [address] [place] [address] Performed By: #### 5 7021-8 ####[facility] LABIA [id number] [place] [address] RBC (Bld) [#/Vol] 4.50 10*6/uL Normal 4.20-6.00 [facility] Comment on above: Order Comment: Speci men Type: BLOOD SPECIMENOrdering Facility: [facility] Address: [address] [place] [address] Performed By: #### 5 7021-8 ####[facility] LABCLIA [id number] [place] [address] WBC (Bld) [#/Vol] 5.55 10*3/uL Normal 3.70-11.00 [facility] Comment on above: Order Comment: Speci men Type: BLOOD SPECIMENOrdering Facility: [facility] Address: [facility] [place] [address] Performed By: #### 5 7021-8 ####[facility] LABCLIA [id number] [place] [address] Mayda 11-12-2023 CNPN Telephone (NUTRSA) ----- INDRA OLIVAREZ ([id number]) 1970 [facility] Date Time Provider Department 11/12/23 NELIDA DONALDSON During your visit today, we recorded the following information about you: Nelida Donaldson RD 11/12/2023 12:06 PM Signed Notified by outreach and education social worker that financial assessment completed and patient with need for assistance in obtaining ONS. Dietitian assessment previously completed and CMN for determination if Medicaid will cover ONS pending. Patient provided with 12 Boost High Protein courtesy of the [facility] ONS project here at the [facility] to help bridge the gap until insurance determination completed. Patient aware of dietitian follow up on 11/25 to reassess need for ONS and if Medicaid approved. Nelida Donaldson MS, RDN, LD Allergies As of Date: 11/12/2023 (No Known Allergies) Date Reviewed: 11/12/2023 Reviewed by: Stefania Albright MA - Fully Assessed Reason for Visit: ONS [Other] Prescriptions as of 11/12/2023 - ondansetron (ZOFRAN) 8 mg tablet Take 1 tablet by mouth every 8 hours as needed for nausea/vomiting. - prochlorperazine (COMPAZINE) 10 mg tablet Take 1 tablet by mouth every 6 hours as needed. - mirtazapine (REMERON) 30 mg tablet Take 30 mg by mouth daily at bedtime. Facility-Administered Medications as of 11/12/2023 - CISplatin 72.8 mg in NaCl 0.9% 1,122.8 mL (PLATINOL) - NaCl 0.9% iv infusion - NaCl 0.9% iv infusion - diphenhydrAMINE 50 mg injection (BENADRYL) - hydrocortisone sodium succinate (PF) 100 mg injection (Solu-CORTEF) - EPINEPHrine 1 mg/mL (1 mL) 0.3 mg injection - sodium chloride 0.9 % (flush) 10-20 mL (BD POSIFLUSH) - sodium chloride 0.9 % (flush) 10-20 mL (BD POSIFLUSH) Problem List As Of Date 11/12/2023 Noted Resolved Malignant neoplasm of trigone of urinary bladde*10/24/2023 Encounter Status:Closed by NELIDA DONALDSON on 11/12/23 [facility] Telephone (HEMAS[place]) ----- INDRA OLIVAREZ ([id number]) 1970 [facility] Date Time Provider Department 11/09/23 ITALIA SPRINGER During your visit today, we recorded the following information about you: Italia Springer RN 11/09/2023 4:26 PM Signed CYCLE 1/DAY 1 POST TREATMENT CALL Today's date: November 09, 2023 Treatment Regimen: Cisplatin AND Gemcitabine C1D1 Date: 11/05/23 Called patient to follow-up on symptom management. Spoke with patient. SYMPTOM ASSESSMENT Neuro: Headache - Mild. Did not require Tylenol. CV/Resp: None GI/: Appetite: Describes as ok. Snacking between meals. Drinks boost as well., Fluid intake: Quite a bit. , Bladder/Urinary Changes: Emptying his catheter bag every 1 hour, and Pt reports he's noticed a small amount of mucous in his stool. Advised he continue to monitor and report if it gets worse. Integument: None Activity: Patient reported decreased energy level. Rates his fatigue 10/10. Naps, but does not always wake feeling rested. Able to complete is ADLS independently. Pain: lower back pain. Describes as noticeable. Pain is not new. Does not require meds. Fever: No Chills: No Reports that his knees seem puffy. No swelling in his lower extremities. Any new referrals needed? No Reinforced CURRENT treatment education based on current and anticipated symptoms. Discussed port/line care and patient verbalizes understanding: Not Applicable Patient instructed to contact office or after hours Hematology/Oncology fellow for: temperature ? 100.4; questions or concerns. Patient verbalized understanding of when to seek medical attention and after hours number protocol. Italia Springer RN Allergies As of Date: 11/09/2023 (No Known Allergies) Date Reviewed: 11/05/2023 Reviewed by: Nelida Donaldson RD - Fully Assessed Reason for Visit: Care Coordination [9480] Cmt: C1D1 Post Treatment Call Prescriptions as of 11/09/2023 - ondansetron (ZOFRAN) 8 mg tablet Take 1 tablet by mouth every 8 hours as needed for nausea/vomiting. - prochlorperazine (COMPAZINE) 10 mg tablet Take 1 tablet by mouth every 6 hours as needed. - mirtazapine (REMERON) 30 mg tablet Take 30 mg by mouth daily at bedtime. Problem List As Of Date 11/09/2023 Noted Resolved Malignant neoplasm of trigone of urinary bladde*10/24/2023 Encounter Status:Closed by ITALIA SPRINGER on 11/09/23 [facility] INDRA OLIVAREZ ([id number]) 1970 M [facility] Date Time Provider Department 11/06/23 NELIDA DONALDSON During your visit today, we recorded the following information about you: Nelida Donaldson RD 11/06/2023 8:18 AM Signed Patient called to let me know he has Boost Plus at home. Per nutrition assessment completed by me yesterday, he consumes 2 per day. He does mention he has been off work without pay for past 1.5 months and has some concerns about affording ONS. Neida- he is interested in receiving a phone call from you to review services available to him. Briefly discussed with him our ONS program we have here. In the meantime, I will complete a CMN to see if Medicaid will cover ONS, but he may need to provided with a couple weeks worth of ONS in the meantime while awaiting that decision. Thanks, Nelida Donaldson, MS, RDN, LD Allergies As of Date: 11/06/2023 (No Known Allergies) Date Reviewed: 11/05/2023 Reviewed by: Nelida Donaldson RD - Fully Assessed Reason for Visit: Patient Question [3814] Cmt: Oral nutrition supplements Prescriptions as of 11/08/2023 - ondansetron (ZOFRAN) 8 mg tablet Take 1 tablet by mouth every 8 hours as needed for nausea/vomiting. - prochlorperazine (COMPAZINE) 10 mg tablet Take 1 tablet by mouth every 6 hours as needed. - mirtazapine (REMERON) 30 mg tablet Take 30 mg by mouth daily at bedtime. 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/24/2023 Encounter Status:Closed by NELIDA DONALDSON on 11/08/23 Normal [facility] Basic metabolic 2000 panelon 11-05-2023 Anion gap [Moles/Vol] 12 mmol/L Normal 9-18 [facility] Comment on above: Order Comment: Speci men Type: BLOOD SPECIMENOrdering Facility: [facility] Address: [address] [place] [address] [place] [address] Performed By: #### 2 4321-2 ####[facility] LABCLIA [id number] [place] [address] Calcium [Mass/Vol] 9.8 mg/dL Normal 8.5-10.2 [facility] Comment on above: Order Comment: Speci men Type: BLOOD SPECIMENOrdering Facility: [facility] Address: [address] [place] [address] Performed By: #### 2 4321-2 ####[facility] LABCLIA [id number] [place] [address] Chloride [Moles/Vol] 101 mmol/L Normal 97-105 [facility] Comment on above: Order Comment: Speci men Type: BLOOD SPECIMENOrdering Facility: [facility] Address: [address] [place] [address] Performed By: #### 2 4321-2 ####[facility] LABCLIA [id number] [place] [address] CO2 [Moles/Vol] 25 mmol/L Normal 22-30 [facility] Comment on above: Order Comment: Speci men Type: BLOOD SPECIMENOrdering Facility: [facility] Address: [address] [place] [address] Performed By: #### 2 4321-2 ####[facility] LABCLIA [id number] [place] [address] Creatinine [Mass/Vol] 1.37 mg/dL High 0.73-1.22 [facility] Comment on above: Order Comment: Speci men Type: BLOOD SPECIMENOrdering Facility: [facility] Address: [address] [place] [address] Performed By: #### 2 4321-2 ####[facility] LABCLIA [id number] [place] [address] Creatinine and Glomerular filtration rate.predicted panel (S/P/Bld) 62 mL/min/1.73m??? Normal >=60 [facility] Comment on above: Order Comment: Speci men Type: BLOOD SPECIMENOrdering Facility: [facility] Address: [address] [place] [address] Result Comment: Tania mated Glomerular Filtration Rate (eGFR) is calculated using the 2020 CKD-EPI creatinine equation. This equation utilizes serum creatinine, sex, and age as parameters. The creatinine assay has traceable calibration to isotope dilution-mass spectrometry. Refer to KDIGO guidelines for clinical interpretation. In patients with unstable renal function, e.g. those with acute kidney injury, the eGFR may not accurately reflect actual GFR. Performed By: #### 2 4321-2 ####[facility] LABCLIA [id number] [place] [address] Glucose [Mass/Vol] 165 mg/dL High 74-99 [facility] Comment on above: Order Comment: Joe mon Type: BLOOD SPECIMENOrdering Facility: [facility] Address: [address] [place] [address] Result Comment: The [place] Diabetes Association (ADA) provides guidance for cutoff values for fasting glucose and random glucose. The ADA defines fasting as no caloric intake for at least 8 hours. Fasting plasma glucose results between 100 to 125 mg/dL indicate increased risk for diabetes (prediabetes). Fasting plasma glucose results greater than or equal to 126 mg/dL meet the criteria for diagnosis of diabetes. In the absence of unequivocal hyperglycemia, results should be confirmed by repeat testing. In a patient with classic symptoms of hyperglycemia or hyperglycemic crisis, random plasma glucose results greater than or equal to 200 mg/dL meet the criteria for diagnosis of diabetes. Reference: Standards of Medical Care in Diabetes 2016, [place] [employer] Association. Diabetes Care. 2016.39(Suppl 1). Performed By: #### 2 4321-2 ####[facility] LABCLIA [id number] [place] [address] Potassium [Moles/Vol] 4.1 mmol/L Normal 3.7-5.1 [facility] Comment on above: Order Comment: Joe mon Type: BLOOD SPECIMENOrdering Facility: [facility] Address: [address] [place] [id number] Performed By: #### 2 4321-2 ####[facility] LABCLIA [id number] [place] [address] Sodium [Moles/Vol] 138 mmol/L Normal 136-144 [facility] Comment on above: Order Comment: Speci men Type: BLOOD SPECIMENOrdering Facility: [facility] Address: [address] [place] [address] Performed By: #### 2 4321-2 ####[facility] LABCLIA [id number] [place] [address] Urea nitrogen [Mass/Vol] 13 mg/dL Normal 9-24 [facility] Comment on above: Order Comment: Speci men Type: BLOOD SPECIMENOrdering Facility: [facility] Address: [address] [place] [address] Performed By: #### 2 4321-2 ####[facility] LABCLIA [id number] [place] [address] Anion gap [Moles/Vol] 12 mmol/L 9 - 18 mmol/L [facility] Calcium [Mass/Vol] 9.8 mg/dL 8.5 - 10. 2 mg/dL [facility] Chloride [Moles/Vol] 101 mmol/L 97 - 10 5 mmol/L [facility] CO2 [Moles/Vol] 25 mmol/L 22 - 30 mmol/L [facility] Creatinine [Mass/Vol] 1.37 mg/dL High 0.73 - 1.22 mg/dL [facility] Estimated Glomerular Filtration Rate 62 mL/min/1.73m >=60 mL/min/1.73m [facility] Glucose [Mass/Vol] 165 mg/dL High 74 - 99 mg/dL [facility] Potassium [Moles/Vol] 4.1 mmol/L 3.7 - 5.1 mmol/L [facility] Sodium [Moles/Vol] 138 mmol/L 136 - 144 mmol/L [facility] Urea nitrogen [Mass/Vol] 13 mg/dL 9 - 24 mg/dL [facility] CBC W Auto Differential pane l (Bld)on 11-05-2023 Basophils (Bld) [#/Vol] 0.07 10*3/uL Normal <0.11 [facility] Comment on above: Order Comment: Speci men Type: BLOOD SPECIMENOrdering Facility: [facility] Address: [address] [place] [address] Performed By: #### 5 7021-8 ####[facility] LABCLIA [id number] [place] [address] Basophils/100 WBC (Bld) 0.8 % Normal [facility] Comment on above: Order Comment: Speci men Type: BLOOD SPECIMENOrdering Facility: [facility] Address: [address] [place] [address] Performed By: #### 5 7021-8 ####[facility] LABCLIA [id number] [place] [address] Differential cell count method Nom (Bld) Auto Normal [facility] Comment on above: Order Comment: Speci men Type: BLOOD SPECIMENOrdering Facility: [facility] Address: [address] [place] [address] Performed By: #### 5 7021-8 ####[facility] LABCLIA [id number] [place] [address] Eosinophils (Bld) [#/Vol] 0.15 10*3/uL Normal <0.46 [facility] Comment on above: Order Comment: Speci men Type: BLOOD SPECIMENOrdering Facility: [facility] Address: [address] [place] [address] Performed By: #### 5 7021-8 ####[facility] LABCLIA [id number] [place] [address] Eosinophils/100 WBC (Bld) 1.6 % Normal [facility] Comment on above: Order Comment: Speci men Type: BLOOD SPECIMENOrdering Facility: [facility] Address: [address] [place] [address] Performed By: #### 5 7021-8 ####[facility] LABCLIA [id number] [place] [address] Erythrocyte distribution width (RBC) [Ratio] 12.1 % Normal 11.5-15.0 [facility] Comment on above: Order Comment: Speci men Type: BLOOD SPECIMENOrdering Facility: [facility] Address: [address] [place] [address] Performed By: #### 5 7021-8 ####[facility] LABCLIA [id number] [place] [address] Hematocrit (Bld) [Volume fraction] 42.0 % Normal 39.0-51.0 [facility] Comment on above: Order Comment: Speci men Type: BLOOD SPECIMENOrdering Facility: [facility] Address: [address] [place] [address] Performed By: #### 5 7021-8 ####[facility] LABCLIA [id number] [place] [address] Hemoglobin (Bld) [Mass/Vol] 14.1 g/dL Normal 13.0-17.0 [facility] Comment on above: Order Comment: Speci men Type: BLOOD SPECIMENOrdering Facility: [facility] Address: [address] [place] [address] Performed By: #### 5 7021-8 ####[facility] LABCLIA [id number] [place] [address] Immature granulocytes (Bld) [#/Vol] 0.07 10*3/uL Normal <0.10 [facility] Comment on above: Order Comment: Speci men Type: BLOOD SPECIMENOrdering Facility: [facility] Address: [address] [place] [address] Performed By: #### 5 7021-8 ####[facility] LABCLIA [id number] [place] [address] Immature granulocytes/100 WBC (Bld) 0.8 % Normal [facility] Comment on above: Order Comment: Speci men Type: BLOOD SPECIMENOrdering Facility: [facility] Address: [address] [place] [address] Performed By: #### 5 7021-8 ####[facility] LABCLIA [id number] [place] [address] Lymphocytes (Bld) [#/Vol] 1.94 10*3/uL Normal 1.00-4.00 [facility] Comment on above: Order Comment: Speci men Type: BLOOD SPECIMENOrdering Facility: [facility] Address: [address] [place] [address] Performed By: #### 5 7021-8 ####[facility] LABCLIA [id number] [place] [address] Lymphocytes/100 WBC (Bld) 21.2 % Normal [facility] Comment on above: Order Comment: Speci men Type: BLOOD SPECIMENOrdering Facility: [facility] Address: [address] [place] [address] Performed By: #### 5 7021-8 ####[facility] LABCLIA [id number] [place] [address] MCH (RBC) [Entitic mass] 31.1 pg Normal 26.0-34.0 [facility] Comment on above: Order Comment: Speci men Type: BLOOD SPECIMENOrdering Facility: [facility] Address: [address] [place] [address] Performed By: #### 5 7021-8 ####[facility] LABCLIA [id number] [place] [address] MCHC (RBC) [Mass/Vol] 33.6 g/dL Normal 30.5-36.0 [facility] Comment on above: Order Comment: Speci men Type: BLOOD SPECIMENOrdering Facility: [facility] Address: [address] [place] [address] Performed By: #### 5 7021-8 ####[facility] LABCLIA [id number] [place] [address] MCV (RBC) [Entitic vol] 92.7 fL Normal 80.0-100.0 [facility] Comment on above: Order Comment: Speci men Type: BLOOD SPECIMENOrdering Facility: [facility] Address: [address] [place] [address] Performed By: #### 5 7021-8 ####[facility] LABCLIA [id number] [place] [address] Monocytes (Bld) [#/Vol] 0.84 10*3/uL Normal <0.87 [facility] Comment on above: Order Comment: Speci men Type: BLOOD SPECIMENOrdering Facility: [facility] Address: [address] [place] [address] Performed By: #### 5 7021-8 ####[facility] LABCLIA [id number] [place] [address] Monocytes/100 WBC (Bld) 9.2 % Normal [facility] Comment on above: Order Comment: Speci men Type: BLOOD SPECIMENOrdering Facility: [facility] Address: [address] [place] [address] Performed By: #### 5 7021-8 ####[facility] LABCLIA [id number] [place] [address] Neutrophils (Bld) [#/Vol] 6.08 10*3/uL Normal 1.45-7.50 [facility] Comment on above: Order Comment: Speci men Type: BLOOD SPECIMENOrdering Facility: [facility] Address: [address] [place] [address] Performed By: #### 5 7021-8 ####[facility] LABCLIA [id number] [place] [address] Neutrophils/100 WBC (Bld) 66.4 % Normal [facility] Comment on above: Order Comment: Speci men Type: BLOOD SPECIMENOrdering Facility: [facility] Address: [address] [place] [address] Performed By: #### 5 7021-8 ####[facility] LABCLIA [id number] [place] [address] Nucleated RBC (Bld) [#/Vol] 10*3/uL Normal <0.01 [facility] Comment on above: Order Comment: Speci men Type: BLOOD SPECIMENOrdering Facility: [facility] Address: [address] [place] [address] Performed By: #### 5 7021-8 ####[facility] LABCLIA [id number] [place] [address] Nucleated RBC/100 WBC (Bld) [Ratio] 0.0 /100 WBC Normal [facility] Comment on above: Order Comment: Speci men Type: BLOOD SPECIMENOrdering Facility: [facility] Address: [address] [place] [address] Performed By: #### 5 7021-8 ####[facility] LABIA [id number] [place] [address] Platelet mean volume (Bld) [Entitic vol] 10.5 fL Normal 9.0-12.7 [facility] Comment on above: Order Comment: Speci men Type: BLOOD SPECIMENOrdering Facility: [facility] Address: [address] [place] [address] Performed By: #### 5 7021-8 ####[facility] LABCLIA [id number] [place] [address] Platelets (Bld) [#/Vol] 234 10*3/uL Normal 150-400 [facility] Comment on above: Order Comment: Speci men Type: BLOOD SPECIMENOrdering Facility: [facility] Address: [address] [place] [address] Performed By: #### 5 7021-8 ####[facility] LABCLIA [id number] [place] [address] RBC (Bld) [#/Vol] 4.53 10*6/uL Normal 4.20-6.00 [facility] Comment on above: Order Comment: Speci men Type: BLOOD SPECIMENOrdering Facility: [facility] Address: [address] [place], [place] [address] Performed By: #### 5 7021-8 ####[facility] LABIA [id number] [place] [address] WBC (Bld) [#/Vol] 9.15 10*3/uL Normal 3.70-11.00 [facility] Comment on above: Order Comment: Speci men Type: BLOOD SPECIMENOrdering Facility: [facility] Address: [address] [place], [place] [address] Performed By: #### 5 7021-8 ####[facility] LABIA [id number] [place] [address] Basophils (Bld) [#/Vol] 0.07 10*3/uL <0.11 k/uL [facility] Basophils/100 WBC (Bld) 0.8 % [facility] Differential cell count method Nom (Bld) Auto [facility] Eosinophils (Bld) [#/Vol] 0.15 10*3/uL <0.46 k/uL [facility] Eosinophils/100 WBC (Bld) 1.6 % [facility] Erythrocyte distribution width (RBC) [Ratio] 12.1 % 11.5 - 15.0 % [facility] Hematocrit (Bld) [Volume fraction] 42.0 % 39.0 - 51.0 % [facility] Hemoglobin (Bld) [Mass/Vol] 14.1 g/dL 13.0 - 17.0 g/dL [facility] Immature granulocytes (Bld) [#/Vol] 0.07 10*3/uL <0.10 k/uL [facility] Immature granulocytes/100 WBC (Bld) 0.8 % [facility] Lymphocytes (Bld) [#/Vol] 1.94 10*3/uL 1.00 - 4.00 k/uL [facility] Lymphocytes/100 WBC (Bld) 21.2 % [facility] MCH (RBC) [Entitic mass] 31.1 pg 26.0 - 34.[address] [facility] MCHC (RBC) [Mass/Vol] 33.6 g/dL 30.5 - 36.0 g/dL [facility] MCV (RBC) [Entitic vol] 92.7 fL 80.0 - 100.[address] [facility] Monocytes (Bld) [#/Vol] 0.84 10*3/uL <0.87 k/uL [facility] Monocytes/100 WBC (Bld) 9.2 % [facility] Neutrophils (Bld) [#/Vol] 6.08 10*3/uL 1.45 - 7.50 k/uL [facility] Neutrophils/100 WBC (Bld) 66.4 % [facility] Nucleated RBC (Bld) [#/Vol] <0.01 k/uL [facility] Nucleated RBC/100 WBC (Bld) [Ratio] 0.0 /[address] [facility] Platelet mean volume (Bld) [Entitic vol] 10.5 fL 9.0 - 12.[address] [facility] Platelets (Bld) [#/Vol] 234 10*3/uL 150 - 400 k/uL [facility] RBC (Bld) [#/Vol] 4.53 10*6/uL 4.20 - 6.0 0 m/uL [facility] WBC (Bld) [#/Vol] 9.15 10*3/uL 3.70 - 11. 00 k/uL [facility] CNOVSPon 11-05-2023 CNOVSP Visit (SP) Office ([place]) ----- SHERINDRA A ([id number]) 1970 M [facility] Date Time Provider Department 11/05/23 9:30 AM VICENTE SANCHEZ During your visit today, we recorded the following information about you: Temperature Pulse Respiration Blood pressure 97.2 degrees 114/minute 18/minute 140/67 Weight Height 89.2 kg 1.745 m Vicente Sanchez MD 11/05/2023 12:54 PM Signed PATIENT NAME: Indra Olivarez DATE: 11/05/2023 PRIMARY CARE PHYSICIAN: Dr. Whitfield OTHER PHYSICIANS: Dr. Santiago, Dr. Venkatesh Small Portions of this encounter note have been copied from my note from 10/23/2023 and has been updated where appropriate, and reflect my current medical decision making from today. CC: This is a 53 year old male with recently diagnosed invasive bladder cancer, seen for scheduled follow-up and treatment. INTERIM HISTORY: Since the patient's initial visit here he underwent placement of a percutaneous right-sided nephrostomy tube on 11/02/2023. He tolerated the procedure well. His ostomy is functioning well with significant urine output. He is also urinating without difficulties. He has had no other significant medical changes. Currently feels well and is ready to proceed with chemotherapy as planned. MEDICATIONS: Current Outpatient Medications Medication Sig ondansetron (ZOFRAN) 8 mg tablet Take 1 tablet by mouth every 8 hours as needed for nausea/vomiting. prochlorperazine (COMPAZINE) 10 mg tablet Take 1 tablet by mouth every 6 hours as needed. mirtazapine (REMERON) 30 mg tablet Take 30 mg by mouth daily at bedtime. No current facility-administered medications for this visit. ALLERGIES: ALLERGIES No Known Allergies PAST MEDICAL HISTORY: PAST MEDICAL HISTORY Diagnosis Date Bladder cancer (HCC) BPH (benign prostatic hyperplasia) Depression Former smoker High cholesterol Hydronephrosis PAST SURGICAL HISTORY: PAST SURGICAL HISTORY Procedure Laterality Date COLONOSCOPY FAMILY HISTORY: FAMILY HISTORY Problem Relation Age of Onset Cervical Cancer Mother Heart disease Father Hypertension Father Hyperlipidemia Father Diabetes Sister Diabetes Maternal Grandmother Emphysema Paternal Grandmother Heart disease Paternal Grandfather SOCIAL HISTORY: Social History Tobacco Use Smoking status: Former Packs/day: 1 Types: Cigarettes Smokeless tobacco: Former Vaping Use Vaping Use: current everyday user Substances: Nicotine, Flavoring Devices: Disposable Substance Use Topics Alcohol use: Yes Drug use: Never COMPLETE REVIEW OF SYSTEMS: CONSTITUTION: Negative for pain, fatigue, weight loss, or appetite loss. EENT: Negative for mouth soreness, antibiotics use, epistaxis, visual problems, neck or facial swelling, fever/chills, bleeding gums, or hearing loss. CV: Negative for edema, calf swelling, palpitations, or chest pain. RESPIRATORY: Negative for cough, SOB, hemoptysis, or wheezing. GI: Negative for nausea/vomiting, heartburn, vomiting blood, dysphasia, diarrhea, blood in stool, constipation, early satiety, PICA, vegetarian, poor nutrition, abdominal fullness, or abdominal pain. NEUROLOGICAL: Negative for numbness/tingling, dizziness, gait disturbance, headache, speech disturbance, tremor, hemiparesis/sensory loss, or change in mental status. MUSCULOSKELETAL: Negative for joint pain, joint swelling, or proximal muscle weakness. SKIN: Negative for hair loss, bruising, nail changes, rash, itching, pallor, or jaundice. ENDO/URO: Negative for hot flashes, cold or heat intolerance, urinary frequency, urinary hesitancy, menorrhagia, or hematuria. PSYCH: Negative for anxiety, depression, or other. PHYSICAL EXAM: BP 140/67 Pulse 114 Temp 36.2 ?C (97.2 ?F) (Temporal) Resp 18 Ht 174.5 cm (5' 8.7 ) Wt 89.2 kg (196 lb 10.4 oz) SpO2 98% BMI 29.29 kg/m? GENERAL EXAM: Well developed/well nourished; in no acute distress. SKIN: Negative for lesions, rashes, or ulcers on the upper and lower extremities and face. Negative for palpations/nodules, purpura, and ecchymosis. EENT: Negative for conjunctiva, mucosal pallor, JVD, LAP, thyromegaly, and glossitis. Supple AND PERRL. EXTREMITIES: Negative for cyanosis, clubbing, and crepitus. LUNGS: Negative to auscultation, respiratory effort, and percussion. CARDIOVASCULAR: Regular rate. Negative for murmurs/S3S4/abnormal sounds, edema, and carotid bruits. ABDOMEN: Negative for masses, hernia, and spleen/liver abnormalities. RECTAL: Not done PSYCHIATRIC: Negative for mood/affect changes, recent AND remote memory changes, and judgement and insight. NEUROLOGICAL: Alert, oriented x person, place, time. Cranial nerves 2-12 intact. Sensory for pain, light touch, vibration intact on all 4 extremities. Reflexes symmetric for biceps/brachioradial/alanis lla/achilles. MUSCULOSKELETAL: Negative examination of (more content not included)... Normal [facility] BRIEF OP NOTon 11-02-2023 BRIEF OP NOT HNO ID: [id number] Author: MONICA VAZQUEZ MD Service: Radiology Author Type: Physician Type: Brief Op Note Filed: 11/02/2023 09:29 Note Text: OPERATIVE/PROCEDURE REPORT LOG ID: [id number] SURGERY/PROCEDURE DATE: 11/02/2023 INCISION/PROCEDURE START TIME: 8:44 AM INCISION CLOSE/PROCEDURE END TIME: 9:16 AM SURGEON(S)/PROCEDURALIST( S) AND STAFF RESEARCH SCIENTIST(S): Surgeon(s) and Role: * Monica Vazquez MD - Primary No Additional Staff SURGERY/PROCEDURE(S): Right 8F nephroureteral catheter placed and connected to a bag for external drainage. Patient to contact his urologist Dr Small on when to attempt capping trial. ANESTHESIA: Procedural Sedation SURGERY/PROCEDURE DETAILS: see above PRE-OP/PRE-PROCEDURE DIAGNOSIS: hydronephrosis POST-OP/POST-PROCEDURE DIAGNOSIS: Same as Preop ESTIMATED BLOOD LOSS: 5 mls SPECIMENS: None IMPLANTABLE DEVICES: NONE DRAINS: None COMPLICATIONS: None CLOSURE TECHNIQUE: Primary PARTICIPATION IN SURGERY/PROCEDURE: I/primary surgeon/proceduralist performed the procedure with assistance. SIGNATURE: Monica Vazquez MD PATIENT NAME: Indra Olivarez DATE: November 02, 2023 TIME: 9:28 AM 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 The contents accurately reflect the patient's condition with the following additions or revisions since the HANDP was completed. ASA Class: ASA Class:: Normal healthy patient Examination indicates no changes. AIRWAY: Airway Visualization of Uvula: Yes Mouth opening greater than 2 fingerbreadths: Yes Neck Full Range of Motion: Yes LUNGS: Lungs clear to auscultation CARDIAC: Regular rhythm,Regular rate Provisional Diagnosis/Treatment Plan: Right nephrostomy/nephrouretera l catheter placement SEDATION GOAL: Moderate This HANDP can be found in the Electronic Medical Record dated 10/16/2023. SIGNATURE: Monica Vazquez MD PATIENT NAME: Indra Olivarez DATE: November 02, 2023 TIME: 8:19 AM [facility] IR PLACE NEPH TUBEon [address]BE * * *Final Report* * * DATE OF EXAM: Nov 02 2023 9:23AM [facility] 0779 - IR PLACE NEPH TUBE / PROCEDURE REASON: Hydronephrosis, unspecified hydronephrosis type [N13.30] * * * * Physician Interpretation * * * * PROCEDURE: PERCUTANEOUS RIGHT NEPHROURETERAL CATHETER PLACEMENT HISTORY: Urology request: Please place right nephrostomy tube and attempt antegrade nephroureteral catheter placement. If able to place nephroureteral catheter, I would like it placed to gravity drainage to start, we will consider clamping trial to assess appropriateness for conversion to ureteral stent 1-2 weeks after placement. Patient to undergo neoadjuvant chemotherapy before planned cystectomy CONSENT: Risks, benefits, treatment options, potential complications and personnel to be involved were discussed (including the risks of radiation exposure, contrast and anesthesia administration, and any equipment needed for the procedure to ensure best possible outcome) with the patient and all questions were answered and consent was obtained prior to procedure. MEDICATION RECONCILIATION: The patient's medications and allergies were reviewed in the electronic medical record and reconciled to the proposed procedure/treatment. MARGOT-PROCEDURE DISCUSSION: The appropriate elements of the pre-procedure discussion, safety check list and sign-out were performed. TIME OUT: A time out was performed immediately prior to procedure start with the nursing, and interventional team, correctly identifying the name, date of , procedure, anatomy (including marking of site and side if applicable), patient position, procedure consent form, relevant diagnostic and radiology test results, antibiotic administration if applicable, safety precautions, and procedure-specific equipment needs. Start of procedure (Time out): 843 End of procedure (Sign out): 915 Patient position: Prone Anesthesia: After establishing pulse oximetry, BP and EKG monitoring by the Radiology nurse, moderate sedation with Versed and Fentanyl was administered. Intra-service time (monitoring for moderate sedation): 41 minutes Patient monitoring: I personally supervised and directed an independent trained observer who assisted in monitoring the patient?s level of consciousness and physiological status throughout the procedure. Local anesthesia: 2 % lidocaine ANTIBIOTICS: Rocephin Antibiotic infusion start time: 827 CONTRAST DOSE: 25 mL cc of OMNIPAQUE 350 was injected into the urinary system during the procedure. IMAGE GUIDANCE: Access was obtained into the target under direct sonographic and fluoroscopic visualization. A sonographic image was obtained and placed into the permanent archive for documentation FLUOROSCOPIC RADIATION SUMMARY: Plane A, Air Kerma: 36.0 mGy Dose Area Product (DAP): Fluoro Time: 5:12 min:sec Radiation dose exceed 5 Gy: No If radiation dose exceeded 5 Gy, was counseling and instructional brochure provided:N/A TECHNIQUE: The patient was prepped and draped using all elements of maximal sterile barrier technique (cap, mask, sterile gown, sterile gloves, a large sterile sheet, hand hygiene and cutaneous antisepsis), sterile ultrasound gel and sterile ultrasound probe covers. ... Access was obtained into the posterior lower pole calyx using a 22G needle. The collecting system was opacified with small amount of contrast. Second, more definitive access was not needed. The needle was removed over a guide wire and exchanged for a Sendy set. Through the Sendy dilator, angled catheter was easily advanced over a wire across the ureter into the bladder. This was then exchanged for a nephroureteral catheter, with the cope loops in the renal pelvis and urinary bladder. Small amount of contrast was injected into the tube to ascertain location. Catheter was secured with 2.0 Prolene suture. Sterile dressing was applied. Catheter was connected to bag for external drainage. RESULT: Moderate hydronephrosis with distal ureteric obstruction. Laterality: Right side Indwelling device: 8 F x 28 cm nephroureteral catheter, with proximal loop in the renal pelvis and distal loop in the bladder. The patient tolerated the procedure well. There were no significant complications and no other complications during the procedure. CONCLUSION: The patient was comfortable and was transferred to the recovery room in stable condition. Estimated Blood Loss: Minimal Number and Type of Removed Specimens: none ATTENDING RADIOLOGIST: Monica Vazquez M.D. STAFF RESEARCH SCIENTIST: None The procedure was performed by the: attending radiologist, without an economic research assistant. The attending radiologist performed the following procedural activities: Entire procedure IMPRESSION: SUCCESSFUL PLACEMENT OF RIGHT NEPHROURETERAL CATHETER. THE PATIENT MAY RETURN IN 8 WEEKS FOR ROUTINE CATHETER CHANGE. PATIENT TO CONTACT DR. SMALL? AND TO DISCUSS (more content not included)... [facility] NURSING PROGon 11-02-2023 NURSING PROG HNO ID: [id number] Author: HIRAM RINALDI RN Service: Nursing Author Type: Registered Nurse Type: Nursing Progress Note Filed: 11/02/2023 11:30 Note Text: ----- Summary: Education ----- 1100: Patient completed watching the [facility] Neph Tube Placement video. 1110: SHRINKING MACHINE OPERATOR notified that patient is ready for bedside education. [facility] NURSING PROG HNO ID: [id number] Author: HIRAM RINALDI RN Service: Nursing Author Type: Registered Nurse Type: Nursing Progress Note Filed: 11/02/2023 09:49 Note Text: PATIENT EDUCATION TOPIC: PROCEDURE / SURGERY: Post Procedure Teaching: Med Administration, Symptom Management, and Wound Care PATIENT NAME: Indra Olivarez PATIENT LOCATION: INTERVENTIONAL RADIOL* READINESS TO LEARN COGNITIVE ABILITY: Alert and oriented MOTIVATION TO LEARN: Interested FAMILY SUPPORT: High - Very involved in pt care INSTRUCTION PROVIDED TO: Patient and Family member PATIENT LEARNS BEST BY: Individual Instruction FACTORS AFFECTING LEARNING: None PHYSICAL LIMITATIONS AFFECTING LEARNING: None LEARNING RESPONSE DIAGNOSIS: ADULT: Well Adult PATIENT/FAMILY RESPONSE: Verbalizes understanding of: POST-PROCEDURE INSTRUCTIONS-Correct actions to take to reduce post procedure complications METHOD OF INSTRUCTION: Individual instruction FOLLOW-UP PLAN: Complete - No need for follow-up INSTRUCTIONAL AIDS USED: NA SUPPLEMENTAL MATERIAL PROVIDED TO PATIENT: None REFERRAL (RECOMMENDATION): None Electronically Signed By: Hiram Rinaldi [facility] NURSING PROG HNO ID: [id number] Author: BALBIR FERGUSON, RN Service: Emergency Medicine Author Type: Registered Nurse Type: Nursing Progress Note Filed: 11/02/2023 07:28 Note Text: PATIENT EDUCATION TOPIC: PROCEDURE / SURGERY: Procedure/Surgery: stent placement PATIENT NAME: Indra Olivarez PATIENT LOCATION: INTERVENTIONAL RADIOL* READINESS TO LEARN COGNITIVE ABILITY: Alert and oriented MOTIVATION TO LEARN: Eager FAMILY SUPPORT: High - Very involved in pt care INSTRUCTION PROVIDED TO: Patient PATIENT LEARNS BEST BY: Verbal Instruction FACTORS AFFECTING LEARNING: None PHYSICAL LIMITATIONS AFFECTING LEARNING: None LEARNING RESPONSE DIAGNOSIS: ADULT: PATIENT/FAMILY RESPONSE: Verbalizes understanding of: PRE-OPERATIVE INSTRUCTIONS-Correct action to take to follow pre-operative instructions PRE-PROCEDURE INSTRUCTIONS-Correct action to take to follow pre-procedure instructions METHOD OF INSTRUCTION: Verbal instruction FOLLOW-UP PLAN: Follow-up with Primary Care INSTRUCTIONAL AIDS USED: NA SUPPLEMENTAL MATERIAL PROVIDED TO PATIENT: None REFERRAL (RECOMMENDATION): None Electronically Signed By: Balbir Ferguson [facility] PT panel Coag (PPP)on 2023 INR Coag (PPP) [Relative time] 0.9 {INR} Normal 0.9-1.3 [facility] Comment on above: Order Comment: Speci men Type: BLOOD SPECIMEN Ordering Facility: [facility] Address: [address] [place] [address] Result Comment: Mady min K Antagonist (VKA) Therapeutic Range: INR 2 to 3 (Target INR of 2.5) Note: For patients treated with VKA drugs, such as warfarin, the [employer] 2012 Guideline recommends a therapeutic INR range of 2 to 3 (target INR of 2.5). This recommendation includes high-risk patients with antiphospholipid syndrome with previous arterial or venous thromboembolism, current-generation mechanical or bioprosthetic aortic heart valve replacement. Note: Patients with mechanical aortic valve replacement and additional risk factors for thromboembolic events (atrial fibrillation, previous thromboembolism, LV dysfunction, hypercoagulable conditions) or an older generation mechanical AVR (i.e., ball in-Cage) or any mechanical MVR should have a INR therapeutic range of 2.5 to 3.5 (target INR of 3). Misael GH, et al. Chest 2012, 141:7S-47S Kd RA, et al. JACC 2017, 70: 252-289 Performed By: #### 3 4528-0 #### [facility] CLIA [id number] [place] PT Coag (PPP) [Time] 10.5 s Normal 9.7-13.0 [facility] Comment on above: Order Comment: Speci men Type: BLOOD SPECIMEN Ordering Facility: [facility] Address: [facility] [place] [address] Performed By: #### 3 4528-0 #### [facility] CLIA [id number] OF [facility] Mayda 10-29-2023 CNPN Telephone (HEMASA) ----- INDRA OLIVAREZ ([id number]) 1970 [facility] Date Time Provider Department 10/29/23 ITALIA SPRINGER During your visit today, we recorded the following information about you: Italia Springer RN 10/29/2023 12:49 PM Signed JAYLYN/Fermín: Order for nutrition referral pended. Clerical: Please schedule jay/ Inga. Pt would prefer a telephone visit. BEV Zamora Jodi 10/29/2023 1:12 PM Signed Per Inga she will see patient while he is in treatment on Sunday the . Patient very happy with this decision. Allergies As of Date: 10/29/2023 (No Known Allergies) Date Reviewed: 10/29/2023 Reviewed by: Italia Springer RN - Fully Assessed Reason for Visit: Care Coordination [7191] Cmt: Nutritional Consult Prescriptions as of 10/29/2023 - ondansetron (ZOFRAN) 8 mg tablet Take 1 tablet by mouth every 8 hours as needed for nausea/vomiting. - prochlorperazine (COMPAZINE) 10 mg tablet Take 1 tablet by mouth every 6 hours as needed. - mirtazapine (REMERON) 30 mg tablet Take 30 mg by mouth daily at bedtime. 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 Date Time Provider Department 10/26/23 TIFFANIE VELEZ IRR During your visit today, we recorded the following information about you: Tiffanie Velez RN 10/26/2023 9:01 AM Signed You are scheduled for a nephrostomy tube placement on November 01. You are to arrive at 7 am and Report to [facility] First Floor Radiology Registration Desk. You can expect to be here for 4-8 hours. Diet: Do not eat any solid food after midnight the night before your procedure. You may drink clear liquids until 6 am, which means black coffee, apple juice, black tea, or water only. Medications: Ok to take your cardiac, blood pressure, anti-seizure, and chronic pain medications with a sip of water, please take prior to arrival. Bring your current medication list. Labs: Lab-work needs to be drawn? Yes, labs (INR) need to be drawn at least one day prior to procedure. Office Administration Instructor/Transportation: How will you be arriving for your procedure? Private car. You will need a responsible adult to accompany you to and from the procedure. Please call [phone] option 3 with any questions. Allergies As of Date: 10/26/2023 (No Known Allergies) Date Reviewed: 10/24/2023 Reviewed by: Fermín Villarreal APRN.AQUACULTURE AND FISHERIES PROFESSOR - Fully Assessed Reason for Visit: Radiology Pre Procedure Instructions [5056] Prescriptions as of 10/26/2023 - ondansetron (ZOFRAN) 8 mg tablet Take 1 tablet by mouth every 8 hours as needed for nausea/vomiting. - prochlorperazine (COMPAZINE) 10 mg tablet Take 1 tablet by mouth every 6 hours as needed. - mirtazapine (REMERON) 30 mg tablet Take 30 mg by mouth daily at bedtime. 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 Consultation Noteon 10-25-19 Consultation Note [id number] [facility] CNPNon [facility] INDR[facility] OL[facility] ([id number]) 1970 [facility] Time Provider Department 10/24/23 VENKATESH SMALL URODean During your visit today, we recorded the following information about you: Venkatesh Small MD 10/24/2023 9:11 AM Signed I contacted Indra to review results of blood work and imaging which demonstrates persistent right hydroureteronephrosis consistent with distal ureteral obstruction, with labs demonstrating creatinine of 1.3 corresponding to a GFR around 60. I explained my concern with persistent distal ureteral obstruction and reviewed management options including ureteral stent placement versus nephrostomy tube placement. I reviewed risks and benefits of each and explained that retrograde ureteral stent placement may not be feasible given anticipated scar at the site of resection which often leads to difficulty identifying the ureteral orifice. Nephrostomy tube placement would be a more certain method of dealing with the obstruction in one procedure, and I explained that we could asked the interventional radiologist to attempt antegrade nephroureteral catheter placement. If this were to be feasible and he were to later tolerate a clamp trial we could consider conversion to a ureteral stent. I have explained that he will require renal drainage in this manner until completing neoadjuvant chemotherapy and undergoing radical cystectomy. After reviewing these options he is elected to proceed with percutaneous nephrostomy tube placement with attempt at antegrade access across the site of obstruction. He accepts the possibility that he will require nephrostomy tube with external drainage bag if we are unable to cross the obstruction. I will update his medical oncologist Dr. Sanchez. Venkatesh Small MD Allergies As of Date: 10/24/2023 (No Known Allergies) Date Reviewed: 10/23/2023 Reviewed by: Stefania Albright - Fully Assessed Reason for Visit: Results [95] Primary Visit Diagnosis:Hydronephrosis, unspecified hydronephrosis type [N13.30] Order(s):IR NEPHROSTOMY TUBE PLACE [[id number]] Order #: [id number] Prescriptions as of 10/24/2023 - mirtazapine (REMERON) 30 mg tablet Take 30 mg by mouth daily at bedtime. 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 Date Time Provider Department 10/24/23 ITALIA SPRINGER During your visit today, we recorded the following information about you: Italia Springer RN 10/24/2023 9:33 AM Signed Pt will be in on Sunday for education (Gemzar, Cisplatin). Scripts for antiemetics pended. Italia Springer, RN Fermín Villarreal APRN.AQUACULTURE AND FISHERIES PROFESSOR 10/24/2023 12:48 PM Signed The following approved medication requests have been transmitted electronically. Requested Prescriptions Signed Prescriptions Disp Refills ondansetron (ZOFRAN) 8 mg tablet 90 tablet 1 Sig: Take 1 tablet by mouth every 8 hours as needed for nausea/vomiting. Authorizing Provider: FERMÍN VILLARREAL prochlorperazine (COMPAZINE) 10 mg tablet 100 tablet 1 Sig: Take 1 tablet by mouth every 6 hours as needed. Authorizing Provider: FERMÍN VILLARREAL APRN.AQUACULTURE AND FISHERIES PROFESSOR Allergies As of Date: 10/24/2023 (No Known Allergies) Date Reviewed: 10/24/2023 Reviewed by: Fermín Villarreal APRN.AQUACULTURE AND FISHERIES PROFESSOR - Fully Assessed Reason for Visit: Care Coordination [3491] Cmt: Antiemetics Order(s):ondansetron (ZOFRAN) 8 mg tabletTake 1 tablet by mouth every 8 hours as needed for nausea/vomiting.Disp: 90 tabletRfl: 1 prochlorperazine (COMPAZINE) 10 mg tabletTake 1 tablet by mouth every 6 hours as needed.Disp: 100 tabletRfl: 1 Prescriptions as of 10/24/2023 - ondansetron (ZOFRAN) 8 mg tablet Take 1 tablet by mouth every 8 hours as needed for nausea/vomiting. - prochlorperazine (COMPAZINE) 10 mg tablet Take 1 tablet by mouth every 6 hours as needed. - mirtazapine (REMERON) 30 mg tablet Take 30 mg by mouth daily at bedtime. 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 PROCHLORPERAZINE MALEATE 10 MG TABLET 100 * 1 10/24/2023 Route: ORAL Sig: Take 1 tablet by mouth every 6 hours as needed. Encounter Status:Closed by ITALIA SPRINGER on 10/24/23 Normal [facility] CBC W Auto Differential pane l (Bld)on 10-23-2023 Basophils (Bld) [#/Vol] 0.07 10*3/uL Normal <0.11 [facility] Comment on above: Order Comment: Speci men Type: BLOOD SPECIMENOrdering Facility: [facility] Address: [address] [place] [address] Performed By: #### 5 7021-8 ####[facility] [id number] [place] [address] Basophils/100 WBC (Bld) 0.8 % Normal [facility] Comment on above: Order Comment: Speci men Type: BLOOD SPECIMENOrdering Facility: [facility] Address: [address] [place] [address] Performed By: #### 5 7021-8 ####[facility] [id number] [place] [address] Differential cell count method Nom (Bld) Auto Normal [facility] Comment on above: Order Comment: Speci men Type: BLOOD SPECIMENOrdering Facility: [facility] Address: [address] [place] [address] Performed By: #### 5 7021-8 ####[facility] [id number] [place] [address] Eosinophils (Bld) [#/Vol] 0.11 10*3/uL Normal <0.46 [facility] Comment on above: Order Comment: Speci men Type: BLOOD SPECIMENOrdering Facility: [facility] Address: [address] [place] [address] Performed By: #### 5 7021-8 ####[facility] [id number] [place] [address] Eosinophils/100 WBC (Bld) 1.2 % Normal [facility] Comment on above: Order Comment: Speci men Type: BLOOD SPECIMENOrdering Facility: [facility] Address: [address] [place] [address] Performed By: #### 5 7021-8 ####[facility] [id number] [place] [address] Erythrocyte distribution width (RBC) [Ratio] 11.9 % Normal 11.5-15.0 [facility] Comment on above: Order Comment: Speci men Type: BLOOD SPECIMENOrdering Facility: [facility] Address: [address] [place] [address] Performed By: #### 5 7021-8 ####[facility] [id number] [place] [address] Hematocrit (Bld) [Volume fraction] 45.5 % Normal 39.0-51.0 [facility] Comment on above: Order Comment: Speci men Type: BLOOD SPECIMENOrdering Facility: [facility] Address: [address] [place] [address] Performed By: #### 5 7021-8 ####[facility] [id number] [place] [address] Hemoglobin (Bld) [Mass/Vol] 15.2 g/dL Normal 13.0-17.0 [facility] Comment on above: Order Comment: Speci men Type: BLOOD SPECIMENOrdering Facility: [facility] Address: [address] [place] [address] Performed By: #### 5 7021-8 ####[facility] LABIA [id number] [place] [address] Immature granulocytes (Bld) [#/Vol] 0.03 10*3/uL Normal <0.10 [facility] Comment on above: Order Comment: Speci men Type: BLOOD SPECIMENOrdering Facility: [facility] [facility] Address: [address] [place] [address] Performed By: #### 5 7021-8 ####[facility] LABIA [id number] [place] [address] Immature granulocytes/100 WBC (Bld) 0.3 % Normal [facility] Comment on above: Order Comment: Speci men Type: BLOOD SPECIMENOrdering Facility: [facility] Address: [address] [place] [address] Performed By: #### 5 7021-8 ####[facility] LABCLIA [id number] [place] [address] Lymphocytes (Bld) [#/Vol] 1.73 10*3/uL Normal 1.00-4.00 [facility] Comment on above: Order Comment: Speci men Type: BLOOD SPECIMENOrdering Facility: [facility] Address: [address] [place] [address] Performed By: #### 5 7021-8 ####[facility] LABCLIA [id number] [place] [address] Lymphocytes/100 WBC (Bld) 19.4 % Normal [facility] Comment on above: Order Comment: Speci men Type: BLOOD SPECIMENOrdering Facility: [facility] Address: [address] [place] [address] Performed By: #### 5 7021-8 ####[facility] LABCLIA [id number] [place] [address] MCH (RBC) [Entitic mass] 30.6 pg Normal 26.0-34.0 [facility] Comment on above: Order Comment: Speci men Type: BLOOD SPECIMENOrdering Facility: [facility] Address: [address] [place] [address] Performed By: #### 5 7021-8 ####[facility] LABCLIA [id number] [place] [address] MCHC (RBC) [Mass/Vol] 33.4 g/dL Normal 30.5-36.0 [facility] Comment on above: Order Comment: Speci men Type: BLOOD SPECIMENOrdering Facility: [facility] Address: [address] [place] [address] Performed By: #### 5 7021-8 ####[facility] LABCLIA [id number] [place] [address] MCV (RBC) [Entitic vol] 91.7 fL Normal 80.0-100.0 [facility] Comment on above: Order Comment: Speci men Type: BLOOD SPECIMENOrdering Facility: [facility] Address: [address] [place] [address] Performed By: #### 5 7021-8 ####[facility] LABCLIA [id number] [place] [address] Monocytes (Bld) [#/Vol] 0.69 10*3/uL Normal <0.87 [facility] Comment on above: Order Comment: Speci men Type: BLOOD SPECIMENOrdering Facility: [facility] Address: [address] [place] [address] Performed By: #### 5 7021-8 ####[facility] LABCLIA [id number] [place] [address] Monocytes/100 WBC (Bld) 7.7 % Normal [facility] Comment on above: Order Comment: Speci men Type: BLOOD SPECIMENOrdering Facility: [facility] Address: [address] [place] [address] Performed By: #### 5 7021-8 ####[facility] LABCLIA [id number] [place] [address] Neutrophils (Bld) [#/Vol] 6.31 10*3/uL Normal 1.45-7.50 [facility] Comment on above: Order Comment: Speci men Type: BLOOD SPECIMENOrdering Facility: [facility] Address: [address] [place] [address] Performed By: #### 5 7021-8 ####[facility] LABCLIA [id number] [place] [address] Neutrophils/100 WBC (Bld) 70.6 % Normal [facility] Comment on above: Order Comment: Speci men Type: BLOOD SPECIMENOrdering Facility: [facility] Address: [address] [place] [address] Performed By: #### 5 7021-8 ####[facility] LABCLIA [id number] [place] [address] Nucleated RBC (Bld) [#/Vol] 10*3/uL Normal <0.01 [facility] Comment on above: Order Comment: Speci men Type: BLOOD SPECIMENOrdering Facility: [facility] Address: [address] [place] [address] Performed By: #### 5 7021-8 ####[facility] LABCLIA [id number] [place] [address] Nucleated RBC/100 WBC (Bld) [Ratio] 0.0 /100 WBC Normal [facility] Comment on above: Order Comment: Speci men Type: BLOOD SPECIMENOrdering Facility: [facility] Address: [address] [place] [address] Performed By: #### 5 7021-8 ####[facility] LABCLIA [id number] [place] [address] Platelet mean volume (Bld) [Entitic vol] 10.1 fL Normal 9.0-12.7 [facility] Comment on above: Order Comment: Speci men Type: BLOOD SPECIMENOrdering Facility: [facility] Address: [address] [place] [address] Performed By: #### 5 7021-8 ####[facility] LABCLIA [id number] [place] [address] Platelets (Bld) [#/Vol] 321 10*3/uL Normal 150-400 [facility] Comment on above: Order Comment: Speci men Type: BLOOD SPECIMENOrdering Facility: [facility] Address: [address] [place] [address] Performed By: #### 5 7021-8 ####[facility] LABCLIA [id number] [place] [address] RBC (Bld) [#/Vol] 4.96 10*6/uL Normal 4.20-6.00 [facility] Comment on above: Order Comment: Speci men Type: BLOOD SPECIMENOrdering Facility: [facility] Address: [address] [place] [address] Performed By: #### 5 7021-8 ####[facility] LABIA [id number] [place] [address] WBC (Bld) [#/Vol] 8.94 10*3/uL Normal 3.70-11.00 [facility] Comment on above: Order Comment: Speci men Type: BLOOD SPECIMENOrdering Facility: [facility] Address: [address] [place] [address] Performed By: #### 5 7021-8 ####[facility] LABIA [id number] [place] [address] Basophils (Bld) [#/Vol] 0.07 10*3/uL <0.11 k/uL [facility] Basophils/100 WBC (Bld) 0.8 % [facility] Differential cell count method Nom (Bld) Auto [facility] Eosinophils (Bld) [#/Vol] 0.11 10*3/uL <0.46 k/uL [facility] Eosinophils/100 WBC (Bld) 1.2 % [facility] Erythrocyte distribution width (RBC) [Ratio] 11.9 % 11.5 - 15.0 % [facility] Hematocrit (Bld) [Volume fraction] 45.5 % 39.0 - 51.0 % [facility] Hemoglobin (Bld) [Mass/Vol] 15.2 g/dL 13.0 - 17.0 g/dL [facility] Immature granulocytes (Bld) [#/Vol] 0.03 10*3/uL <0.10 k/uL [facility] Immature granulocytes/100 WBC (Bld) 0.3 % [facility] Lymphocytes (Bld) [#/Vol] 1.73 10*3/uL 1.00 - 4.00 k/uL [facility] Lymphocytes/100 WBC (Bld) 19.4 % [facility] MCH (RBC) [Entitic mass] 30.6 pg 26.0 - 34.[address] [facility] MCHC (RBC) [Mass/Vol] 33.4 g/dL 30.5 - 36.0 g/dL [facility] MCV (RBC) [Entitic vol] 91.7 fL 80.0 - 100.[address] [facility] Monocytes (Bld) [#/Vol] 0.69 10*3/uL <0.87 k/uL [facility] Monocytes/100 WBC (Bld) 7.7 % [facility] Neutrophils (Bld) [#/Vol] 6.31 10*3/uL 1.45 - 7.50 k/uL [facility] Neutrophils/100 WBC (Bld) 70.6 % [facility] Nucleated RBC (Bld) [#/Vol] <0.01 k/uL [facility] Nucleated RBC/100 WBC (Bld) [Ratio] 0.0 /[address] [facility] Platelet mean volume (Bld) [Entitic vol] 10.1 fL 9.0 - 12.[address] [facility] Platelets (Bld) [#/Vol] 321 10*3/uL 150 - 400 k/uL [facility] RBC (Bld) [#/Vol] 4.96 10*6/uL 4.20 - 6.0 0 m/uL [facility] WBC (Bld) [#/Vol] 8.94 10*3/uL 3.70 - 11. 00 k/uL [facility] CNOVSPon 10-23-2023 CNOVS Visit (SP) Office ([place]) ----- INDRA OLIVAREZ ([id number]) 1970 M [facility] Date Time Provider Department 10/23/23 4:00 PM VICNETE SANCHEZ During your visit today, we recorded the following information about you: Temperature Pulse Respiration Blood pressure 97.1 degrees 107/minute 18/minute 139/82 Weight Height 85.8 kg 1.778 m Vicente Sanchez MD 10/24/2023 7:59 AM Signed PATIENT NAME: Indra Olivarez DATE: 10/23/2023 PRIMARY CARE PHYSICIAN: Dr. Whitfield OTHER PHYSICIANS: Dr. Santiago, Dr. Venkatesh Small HPI: This is a 53 year old male with recently diagnosed invasive bladder cancer, referred for further management. The patient has had hematuria and difficulty urinating since June 2023. By August 2023 his symptoms worsened and he underwent evaluation. Renal ultrasound 09/08/2023 revealed significant right hydronephrosis with an apparent mass involving the right side of his bladder. CT abdomen/pelvis 09/15/2023 confirmed a 6 cm mass at the base of the right bladder. He was referred to urology (Dr. Santiago) and underwent cystoscopy on 09/27/2023. This revealed a large bladder tumor at the base of the bladder obstructing the right ureter. He underwent TURBT on 09/27/2023, and a second cystoscopy with resection of the residual tumor on 09/28/2023. Pathology on the resected specimen revealed invasive high-grade papillary urothelial carcinoma. He was referred to [facility] and recommendations were to stage with CT scans, and if no metastasis proceed with neoadjuvant chemotherapy followed by cystectomy. Currently the patient feels fairly well. Since his cystoscopy hematuria has resolved, and his urinary symptoms have improved. He denies any unusual pain. No weight loss or other systemic symptoms. Past medical history otherwise is unremarkable. His only medication is Remeron for depression. He has a history of smoking, quit at least 5 years ago. He currently vapes . Family history is negative. MEDICATIONS: Current Outpatient Medications Medication Sig mirtazapine (REMERON) 30 mg tablet Take 30 mg by mouth daily at bedtime. No current facility-administered medications for this visit. ALLERGIES: ALLERGIES No Known Allergies PAST MEDICAL HISTORY: PAST MEDICAL HISTORY Diagnosis Date Bladder cancer (HCC) BPH (benign prostatic hyperplasia) Depression Former smoker High cholesterol Hydronephrosis PAST SURGICAL HISTORY: PAST SURGICAL HISTORY Procedure Laterality Date COLONOSCOPY FAMILY HISTORY: FAMILY HISTORY Problem Relation Age of Onset Cancer Mother Heart disease Father SOCIAL HISTORY: COMPLETE REVIEW OF SYSTEMS: CONSTITUTION: Negative for pain, fatigue, weight loss, or appetite loss. EENT: Negative for mouth soreness, antibiotics use, epistaxis, visual problems, neck or facial swelling, fever/chills, bleeding gums, or hearing loss. CV: Negative for edema, calf swelling, palpitations, or chest pain. RESPIRATORY: Negative for cough, SOB, hemoptysis, or wheezing. GI: Negative for nausea/vomiting, heartburn, vomiting blood, dysphasia, diarrhea, blood in stool, constipation, early satiety, PICA, vegetarian, poor nutrition, abdominal fullness, or abdominal pain. NEUROLOGICAL: Negative for numbness/tingling, dizziness, gait disturbance, headache, speech disturbance, tremor, hemiparesis/sensory loss, or change in mental status. MUSCULOSKELETAL: Negative for joint pain, joint swelling, or proximal muscle weakness. SKIN: Negative for hair loss, bruising, nail changes, rash, itching, pallor, or jaundice. ENDO/URO: Negative for hot flashes, cold or heat intolerance, urinary frequency, urinary hesitancy, menorrhagia, or hematuria. PSYCH: Negative for anxiety, depression, or other. PHYSICAL EXAM: BP 139/82 Pulse 107 Temp 36.2 ?C (97.1 ?F) (Temporal) Resp 18 Ht 177.8 cm (5' 10 ) Wt 85.8 kg (189 lb 2.5 oz) SpO2 99% BMI 27.14 kg/m? GENERAL EXAM: Well developed/well nourished; in no acute distress. SKIN: Negative for lesions, rashes, or ulcers on the upper and lower extremities and face. Negative for palpations/nodules, purpura, and ecchymosis. EENT: Negative for conjunctiva, mucosal pallor, JVD, LAP, thyromegaly, and glossitis. Supple AND PERRL. EXTREMITIES: Negative for cyanosis, clubbing, and crepitus. LUNGS: Negative to auscultation, respiratory effort, and percussion. CARDIOVASCULAR: Regular rate. Negative for murmurs/S3S4/abnormal sounds, edema, and carotid bruits. ABDOMEN: Negative for masses, hernia, and spleen/liver abnormalities. RECTAL: Not done PSYCHIATRIC: Negative for mood/affect changes, recent AND remote memory changes, and judgement and insight. NEUROLOGICAL: Alert, oriented x person, place, time. Cranial nerves 2-12 intact. Sensory for pain, light touch, vibration intact on all 4 extremities. Reflexes symmetric for biceps/brachioradial/pat (more content not included)... Normal [facility] CT CHEST W IVCONon CT CHEST W IVCON * * *Final Report* * * DATE OF EXAM: Oct 23 2023 3:20PM [facility] 0539 - CT CHEST W IVCON / PROCEDURE REASON: Malignant neoplasm of urinary bladder, unspecified site (HCC) * * * * Physician Interpretation * * * * RESULT: EXAMINATION: CHEST CT WITH CONTRAST CLINICAL HISTORY: Malignant neoplasm of urinary bladder Technique: Spiral CT acquisition of the chest from the thoracic inlet to the upper abdomen following IV contrast. MQ: CTCW_6 Contrast: 120 mL Omnipaque [address] Radiation dose: Integrated Dose-length product (DLP) for this visit = 3267 mGy*cm CT Dose Reduction Employed: Automated exposure control(AEC) and iterative recon Comparison: None. RESULT: Limitations: None. Lines, tubes, and devices: None. Lung parenchyma and airways: No consolidation. No suspicious pulmonary nodule. The central airways are patent. Pleural space: No pleural effusion. No pleural thickening. Lower neck, lymph nodes, and mediastinum: The imaged thyroid gland is normal. No lymphadenopathy in the supraclavicular, axillary, mediastinal, or hilar regions. Heart, pericardium, and thoracic vessels: The thoracic aorta and main pulmonary artery are normal in caliber. The cardiac chambers are normal in size. No coronary artery atherosclerotic calcifications are noted, although the study is not optimized for coronary assessment. No pericardial effusion or thickening. Bones and soft tissues: No destructive bone lesion. Chest wall is unremarkable. Upper abdomen: Dictated separately. Motor Vehicle Escort Driver (topogram) images: No additional findings. IMPRESSION: 1. No convincing findings of metastatic disease in the thorax. Unremarkable chest CT. Transcribe Date/Time: Oct 23 2023 3:56P Dictated by: JOSE RAFAEL AMARO MD This examination was interpreted and the report reviewed and electronically signed by: JOSE RAFAEL AMARO MD on Oct 23 2023 3:58PM EST Thank you for allowing us to participate in the care of your patient. Should there be any questions regarding this interpretation, please call [phone]. If you are unable to reach us at the number above, please feel free to contact [facility] eRadiology at [phone]. [id number] Normal [facility] CT UROGRAM WO/W IVCONon 10-11 CT UROGRAM WO/W IVCON * * *Final Report* * * DATE OF EXAM: Oct 23 2023 3:20PM [facility] 0560 - CT UROGRAM WO/W IVCON / PROCEDURE REASON: Malignant neoplasm of urinary bladder, unspecified site (HCC) * * * * Physician Interpretation * * * * RESULT: EXAMINATION: CT ABDOMEN AND PELVIS WITHOUT AND WITH IV CONTRAST, INCLUDING EXCRETORY PHASE IMAGING (CT UROGRAM) 3D RECONSTRUCTIONS CLINICAL HISTORY: 53-year-old male with former smoking was referred for evaluation of newly diagnosed bladder cancer. Imaging showed a solid mass in the base of the bladder, possible invasion of the right UV junction, and severe right hydroureteronephrosis. TURBT revealed a cT2HG lesion >6cm in the right hemitrigone, which was fully resected after a second TURBT. TECHNIQUE: CT urogram protocol including unenhanced, renal parenchymal phase and excretory phase renal imaging was obtained following IV contrast. Normal saline was also administered IV. No oral contrast was given. 3D image post-processing was performed and archived at the request of the referring physician, on the CT scanner workstation without concurrent physician supervision. MQ: CTU_2 Contrast: IV: 120 ml of Omnipaque 300 IV Saline: ml of Oral Contrast: None CT Radiation dose: Integrated dose-length product (DLP) for this visit = 3267 mGy*cm. CT Dose Reduction Employed: Automated exposure control(AEC) and iterative recon COMPARISON: 09/15/2023 CT abdomen pelvis outside study; 09/08/2023 ultrasound outside study RESULT: Kidneys and urinary tract: Right: Moderate RIGHT hydroureteronephrosis to the level of the bladder, improved from prior outside CT with mild circumferential soft tissue thickening at the in the region of the UVJ (4:124). Mildly delayed RIGHT nephrogram with excreted contrast in the renal collecting system but not present within the ureter. Left: There are no renal calculi or masses. The opacified calices, renal pelvis and ureter are normal without dilation, filling defect, or stricture. Bladder: Post resection of polypoid bladder tumor. Irregular somewhat nodular posterior bladder wall thickening and TURBT defect noted. Abdomen and Pelvis: Liver: No mass. Biliary: No bile duct dilation. Gallbladder is unremarkable. Spleen: No mass. No splenomegaly. 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 No duct dilation Adrenals: No mass. GI tract: No dilation or wall thickening. Lymph nodes: No abdominal or pelvic lymphadenopathy. Mesentery/Peritoneum: No ascites or mass. Retroperitoneum: No mass. Vasculature: - Abdominal aorta and iliac arteries: No aneurysm. - Celiac and SMA: Patent without stenosis. - Portal venous system (SMV, splenic vein, portal vein and branches): Patent. - Hepatic veins: Patent. Pelvis: No mass, ascites or fluid collection. Bones and Soft Tissues: Degenerative changes. Lower thorax: A chest CT performed will be reported separately. Motor Vehicle Escort Driver (topogram) images: No additional findings. IMPRESSION: Irregular somewhat nodular posterior bladder wall thickening as described; this may be postsurgical or represent represent residual tumor. Moderate RIGHT hydroureteronephrosis to level the UVJ with mild circumferential soft tissue thickening of the RIGHT distal ureter. Tumor involvement of the distal ureter not excluded. No lymphadenopathy or other metastatic disease. Transcribe Date/Time: Oct 23 2023 4:03P Dictated by: ISAAC CUETO MD This examination was interpreted and the report reviewed and electronically signed by: ISAAC CUETO MD on Oct 23 2023 4:14PM EST Thank you for allowing us to participate in the care of your patient. Should there be any questions regarding this interpretation, please call [phone]. If you are unable to reach us at the number above, please feel free to contact [facility] eRadiology at [phone]. [id number] Normal [facility] Comprehensive metabolic 2000 panelon 10-23-2023 Albumin [Mass/Vol] 4.7 g/dL Normal 3.9-4.9 [facility] Comment on above: Order Comment: Speci men Type: BLOOD SPECIMENOrdering Facility: [facility] Address: [address] [place] [address] Performed By: #### 2 4323-8 ####[facility] LABCLIA [id number] [place] [address] ALP [Catalytic activity/Vol] 97 U/L Normal 38-113 [facility] Comment on above: Order Comment: Speci men Type: BLOOD SPECIMENOrdering Facility: [facility] Address: [address] [place] [address] Performed By: #### 2 4323-8 ####[facility] LABCLIA [id number] [place] [address] ALT [Catalytic activity/Vol] 25 U/L Normal 10-54 [facility] Comment on above: Order Comment: Speci men Type: BLOOD SPECIMENOrdering Facility: [facility] Address: [address] [place] [address] Performed By: #### 2 4323-8 ####[facility] LABCLIA [id number] [place] [address] Anion gap [Moles/Vol] 10 mmol/L Normal 9-18 [facility] Comment on above: Order Comment: Speci men Type: BLOOD SPECIMENOrdering Facility: [facility] Address: [address] [place] [address] Performed By: #### 2 4323-8 ####[facility] LABCLIA [id number] [place] [address] AST [Catalytic activity/Vol] 25 U/L Normal 14-40 [facility] Comment on above: Order Comment: Speci men Type: BLOOD SPECIMENOrdering Facility: [facility] Address: [address] [place] [address] Performed By: #### 2 4323-8 ####[facility] LABCLIA [id number] [place] [address] Bilirubin [Mass/Vol] 0.6 mg/dL Normal 0.2-1.3 [facility] Comment on above: Order Comment: Speci men Type: BLOOD SPECIMENOrdering Facility: [facility] Address: [address] [place] [address] Performed By: #### 2 4323-8 ####[facility] LABCLIA [id number] [place] [address] Calcium [Mass/Vol] 10.3 mg/dL High 8.5-10.2 [facility] Comment on above: Order Comment: Speci men Type: BLOOD SPECIMENOrdering Facility: [facility] Address: [address] [place] [address] Performed By: #### 2 4323-8 ####[facility] LABCLIA [id number] [place] [address] Chloride [Moles/Vol] 100 mmol/L Normal 97-105 [facility] Comment on above: Order Comment: Speci men Type: BLOOD SPECIMENOrdering Facility: [facility] Address: [address] [place] [address] Performed By: #### 2 4323-8 ####[facility] LABCLIA [id number] [place] [address] CO2 [Moles/Vol] 29 mmol/L Normal 22-30 [facility] Comment on above: Order Comment: Speci men Type: BLOOD SPECIMENOrdering Facility: [facility] Address: [address] [place] [address] Performed By: #### 2 4323-8 ####[facility] LABCLIA [id number] [place] [address] Creatinine [Mass/Vol] 1.36 mg/dL High 0.73-1.22 [facility] Comment on above: Order Comment: Speci men Type: BLOOD SPECIMENOrdering Facility: [facility] Address: [address] [place] [address] Performed By: #### 2 4323-8 ####[facility] LABCLIA [id number] [place] [address] Creatinine and Glomerular filtration rate.predicted panel (S/P/Bld) 63 mL/min/1.73m??? Normal >=60 [facility] Comment on above: Order Comment: Speci men Type: BLOOD SPECIMENOrdering Facility: [facility] Address: [address] [place] [address] Result Comment: Tania mated Glomerular Filtration Rate (eGFR) is calculated using the 2020 CKD-EPI creatinine equation. This equation utilizes serum creatinine, sex, and age as parameters. The creatinine assay has traceable calibration to isotope dilution-mass spectrometry. Refer to KDIGO guidelines for clinical interpretation. In patients with unstable renal function, e.g. those with acute kidney injury, the eGFR may not accurately reflect actual GFR. Performed By: #### 2 4323-8 ####[facility] LABCLIA [id number] [place] [address] Glucose [Mass/Vol] 117 mg/dL High 74-99 [facility] Comment on above: Order Comment: Speci men Type: BLOOD SPECIMENOrdering Facility: [facility] Address: [address] [place] [address] Result Comment: The [place] [employer] (ADA) provides guidance for cutoff values for fasting glucose and random glucose. The ADA defines fasting as no caloric intake for at least 8 hours. Fasting plasma glucose results between 100 to 125 mg/dL indicate increased risk for diabetes (prediabetes). Fasting plasma glucose results greater than or equal to 126 mg/dL meet the criteria for diagnosis of diabetes. In the absence of unequivocal hyperglycemia, results should be confirmed by repeat testing. In a patient with classic symptoms of hyperglycemia or hyperglycemic crisis, random plasma glucose results greater than or equal to 200 mg/dL meet the criteria for diagnosis of diabetes. Reference: Standards of Medical Care in Diabetes 2016, [place] [employer]. Diabetes Care. 2016.39(Suppl 1). Performed By: #### 2 4323-8 ####[facility] LABCLIA [id number] [place] [address] Potassium [Moles/Vol] 4.1 mmol/L Normal 3.7-5.1 [facility] Comment on above: Order Comment: Speci men Type: BLOOD SPECIMENOrdering Facility: [facility] Address: [address] [place] [address] Performed By: #### 2 4323-8 ####[facility] LABCLIA [id number] [place] [address] Protein [Mass/Vol] 8.5 g/dL High 6.3-8.0 [facility] Comment on above: Order Comment: Speci men Type: BLOOD SPECIMENOrdering Facility: [facility] Address: [address] [place] [address] Performed By: #### 2 4323-8 ####[facility] LABCLIA [id number] [place] [address] Sodium [Moles/Vol] 139 mmol/L Normal 136-144 [facility] Comment on above: Order Comment: Speci men Type: BLOOD SPECIMENOrdering Facility: [facility] Address: [address] [place] [address] Performed By: #### 2 4323-8 ####[facility] LABCLIA [id number] [place] [address] Urea nitrogen [Mass/Vol] 13 mg/dL Normal 9-24 [facility] Comment on above: Order Comment: Speci men Type: BLOOD SPECIMENOrdering Facility: [facility] Address: [address] [place] [address] Performed By: #### 2 4323-8 ####[facility] LABCLIA [id number] [place] [address] Albumin [Mass/Vol] 4.7 g/dL 3.9 - 4.9 g/dL [facility] ALP [Catalytic activity/Vol] 97 U/L 38 - 113 U/L [facility] ALT [Catalytic activity/Vol] 25 U/L 10 - 54 U/L [facility] Anion gap [Moles/Vol] 10 mmol/L 9 - 18 mmol/L [facility] AST [Catalytic activity/Vol] 25 U/L 14 - 40 U/L [facility] Bilirubin [Mass/Vol] 0.6 mg/dL 0.2 - 1 .3 mg/dL [facility] Calcium [Mass/Vol] 10.3 mg/dL High 8.5 - 10. 2 mg/dL [facility] Chloride [Moles/Vol] 100 mmol/L 97 - 10 5 mmol/L [facility] CO2 [Moles/Vol] 29 mmol/L 22 - 30 mmol/L [facility] Creatinine [Mass/Vol] 1.36 mg/dL High 0.73 - 1.22 mg/dL [facility] Estimated Glomerular Filtration Rate 63 mL/min/1.73m >=60 mL/min/1.73m [facility] Glucose [Mass/Vol] 117 mg/dL High 74 - 99 mg/dL [facility] Potassium [Moles/Vol] 4.1 mmol/L 3.7 - 5.1 mmol/L [facility] Protein [Mass/Vol] 8.5 g/dL High 6.3 - 8.0 g/dL [facility] Sodium [Moles/Vol] 139 mmol/L 136 - 144 mmol/L [facility] Urea nitrogen [Mass/Vol] 13 mg/dL 9 - 24 mg/dL [facility] for Release of Medical Recordson 10-19-2023 Auth for Release of Medical Records [id number] [facility] Consultation Noteon 10-17-19 Consultation Note [id number] [facility] CNOVon 10-16-2023 CNOV Office Visit (URFHR) ----- INDRA OLIVAREZ ([id number]) 1970 M [facility] Date Time Provider Department 10/16/23 8:10 AM VENKATESH SMALL URFHR During your visit today, we recorded the following information about you: Temperature Pulse Blood pressure Weight 98.8 degrees 118/minute 122/86 84.5 kg Venkatesh Small MD 10/16/2023 9:06 AM Signed [facility] NEW PATIENT HISTORY AND PHYSICAL EXAM PATIENT INFO: Indra Olivarez 53 year old REFERRING M.D.: Dr. Santiago PCP: No primary care provider on file. Consultation requested by Dr. Santiago for an opinion regarding bladder cancer and my final recommendations will be communicated back to the requesting physician by way of shared medical record or letter via US mail. HPI 53 year old male w/h/o HLD, right hernia repair, former smoker referred for evaluation of newly diagnosed bladder cancer. History with Dr. Santiago as below: Renal US 09/08/23 - marked hydronephrosis of Right kidney, lobulated solid mass in the base of the bladder measuring 9x6 cm, post void residual 362mL. CT AP 09/15/23 - 5.3 enhancing lesion arising from the urinary bladder wall. Possible invasion of RT UV junction, sever Right hydroureteronephrosis. 09/28/23 TURBT: cT2HG 09/27/23 TURBT: cT2HG, >6cm in Right hemitrigone Reports full resection after second TURBT. Also told WBC was borderline on blood work but does not know baseline serum creatinine. Also does not know if he had stent placement with TURBT. Sexual function is not currently a priority but is interested in nerve sparing surgery if feasible. He had a detailed discussion with Dr. Santiago regarding options for urinary diversion and has read up on this and is considering an orthotopic neobladder. PATHOLOGY: As above LAB: No results found for: CREAT No results found for: PSA No results found for: COLOR , CLARITY , UGLUC , UBILI , UKET , SPGR , UHB , UPH , UPROT , UROBILINOGEN , NITRITES , LEUKEST IMAGING: As above ALLERGIES: ALLERGIES No Known Allergies MEDICATIONS: mirtazapine (REMERON) 30 mg tablet Take 30 mg by mouth daily at bedtime. HISTORIES No past medical history on file. No family history on file. No past surgical history on file. SOCIAL HISTORY REVIEW OF SYSTEMS General: No weight loss, malaise or fevers., SEE HPI Gastrointestinal: See HPI Genitourinary: No history of dysuria, frequency or incontinence The remainder of the ROS was reviewed and was negative. PHYSICAL EXAMINATION BP 122/86 Pulse 118 Temp 37.1 ?C (98.8 ?F) Wt 84.5 kg (186 lb 4.8 oz) SpO2 97% Constitutional: Well appearing, alert, in no acute distress, and well-hydrated, well nourished Gastrointestinal: non-distended Genitourinary: MALE EXAM: Exam NOT Indicated ASSESSMENT AND PLAN: Newly diagnosed muscle invasive bladder cancer At today's visit we had outside CT A/P report and pathology report but do not have images available for review nor do we have lab results and are unsure of Indra's baseline renal function. Of note outside imaging demonstrated right hydronephrosis raising the possibility of insufficiency. I reviewed treatment for muscle invasive bladder cancer and discussed the role of staging scans to rule out metastatic disease. We will schedule staging scans this week. I reviewed the role of neoadjuvant chemotherapy followed by radical cystectomy versus TMT for the management of muscle invasive disease. Given bulky disease with associated hydronephrosis, he has risk factors for failure with TMT and is prioritizing oncologic control. I have recommended blood work and CT chest to complete staging followed by medical oncology consultation which we will coordinate in [place]. If he is cisplatin ineligible based on renal function then I would encourage him to consider enrollment in a neoadjuvant trial for cisplatin ineligible patients. As it relates to radical cystectomy I discussed expectations perioperative and postoperative recovery and risk and benefits of surgery which include but are not limited to bleeding, infection, ileus, SBO, VTE, injury to adjacent organ, cardiopulmonary risk of general anesthesia. I reviewed expectations for post-operative recovery and QOL outcomes from large cystectomy series. I reviewed options for urinary diversion including ileal conduit, orthotopic neobladder, and continent cutaneous diversion. In reviewing the advantages and disadvantages of these options he is strongly leaning towards an orthotopic neobladder. We will provide our cystectomy guidebook for him to review as he continues to consider this. I discussed functional and quality of life outcomes following radical cystectomy and described the role of nerve sparing in optimizing functional recovery as it relates to erectile function. This not currently priority for him but may be s (more content not included)... Normal [facility] Letter [facility] (Inserted Image. Ashly ble to display) October 08, [address] [address] : 1970 October 08, 2023 To Whom It May Concern, Please excuse above patient from work. Date of Illness: From: 09/27/23 To: 10/08/23 May Return to Work On: 10/09/23 Restrictions: Patient may return to work 10/09/23 on light duty. No heavy lifting over 10 lbs, must not be on his feet for long periods of time, and given frequent bathroom breaks. Comments: Patient is being referred to [facility] for bladder cancer treatment, and has appointment on 10/16/2023 @ 8am in [place]. Sincerely, Sonny Santiago M.D., F.A.C.S. [facility] [address] [place] [phone] , option # PATIENTS TIME OFF HAS BEEN EXTENDED TO 10/17/2023 AFTER HE IS SEEN AT THE [facility], DR. 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 Hydronephrosis BPH with obstruction/lower urinary tract symptoms Former smoker Your Care Team Attending Physician - JACK BLOCK, Sonny Aguilar Primary Care Physician - Robert BLOCK, Sayra Primary Nurse - Dasha Penny RN This Is Your Medications List Contact prescribing physician if questions or concerns mirtazapine (mirtazapine 30 mg Tab) [Image Removed: STOP]Stop taking these medications oxybutynin (oxybutynin 10 mg ER Tab) Procedures Performed TURBT - Transurethral resection of bladder tumor (09/28/2023), TURBT - Transurethral resection of bladder tumor (09/27/2023), Colonoscopy, Excision, History of hernia repair. Discharge Vitals Heart Rate (Peripheral) 105 Respiratory Rate 16 Blood Pressure 134/88 Height 178 cm Height 70 in Weight 82 kg Weight 180.4 lb BMI 25.88 What to do next You Need to Schedule the Following Appointments Follow Up with JACK BLOCK, CHRISTINE Carter When: Comments: referral to discuss prostatocystectomy Where: [facility] [address] [place] [address] [phone] Medications What How Much When Instructions Unchanged mirtazapine (mirtazapine 30 mg Tab) 1 Tablets By Mouth Once a day (at bedtime) Contact prescribing physician if questions or concerns What How Much When Comments Stop Taking oxybutynin (oxybutynin 10 mg ER Tab) 1 Tablets By Mouth Every day Allergies No Known Medication Allergies Problems Ongoing - Any problem that you are currently receiving treatment for. 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 Please share your experience with us by completing your survey. We appreciate your feedback and thank you for choosing us for your care. Education Materials Radical Cystectomy, Care After The following information offers guidance on how to care for yourself after your procedure. Your health care provider may also give you more specific instructions. If you have problems or questions, contact your health care provider. What can I expect after the procedure? After the procedure, it is common to have: ? Pain or soreness in the abdomen. ? Leakage of urine or trouble urinating. ? Loose bowel movements (diarrhea) or constipation. Follow these instructions at home: Medicines ? Take plrn-uvb-xgbcoia and prescription medicines only as told by your health care provider. ? If you were prescribed an antibiotic medicine, take it as told by your health care provider. Do not stop using the antibiotic even if you start to feel better. Ask your health care provider if the medicine prescribed to you: ? Requires you to avoid driving or using machinery. ? Can cause constipation. You may need to take these actions to prevent or treat constipation: ? Drink enough fluid to keep your urine pale yellow. ? Take odnt-qvt-sauzbxg or prescription medicines. ? Eat foods that are high in fiber, such as beans, whole grains, and fresh fruits and vegetables. ? Limit foods that are high in fat and processed sugars, such as fried or sweet foods. Incision care Follow instructions from your health care provider about how to take care of your incision. Make sure you: ? Wash your hands with soap and water for at least 20 seconds before and after you change your bandage (dressing). If soap and water are not available, use hand international trade compliance manager. ? Change your dressing as told by your health care provider. ? Leave stitches (sutures), patricia, skin glue, or adhesive strips in place. These skin closures may need to stay in place for 2 weeks or longer. If adhesive strip edges start to loosen and curl up, you may trim the loose edges. Do not remove adhesive strips completely unless your health care provider tells you to do that. Check your incision area every day for signs of infection. Check for: ? Redness, swelling, or pain. ? Fluid or blood. ? Warmth. ? Pus or a bad smell. Activity ? Rest as told by your health care provider. ? Avoid sitting for a long time without moving. Get up to take short walks every 1?2 hours. This is important to improve blood flow and breathing. Ask for help if you feel weak or unsteady. ? Do not do exercises that put pressure on the muscles in your abdomen. These include sit-ups and weight lifting. ? Avoid intense physical activity for as long as told by your health care provider. ? Do not lift anything that is heavier than 10 lb (4.5 kg), or the limit that you are told, until your (more content not included)... Normal [facility] Patient Educationon 10-08-19 Patient Education Oncology Bladder Cancer Bladder cancer is a condition where abnormal tissue (a tumor) grows in the bladder. The bladder is the organ that holds urine. Two tubes (ureters) carry urine from the kidneys to the bladder. The bladder wall is made of layers of tissue. Cancer that spreads through these layers of the bladder wall becomes more difficult to treat. What increases the risk? The following factors may make you more likely to develop this condition: ? Smoking. ? Working where there are risks (occupational exposures), such as working with rubber, leather, clothing fabric, dyes, chemicals, or paint. ? Being 55 years of age or older. ? Being male. ? Having long-term bladder inflammation. ? Having a history of cancer. This includes: ? A family history of bladder cancer. ? Having had bladder cancer before. ? Having had certain treatments for cancer before, such as: ? Medicines to kill cancer cells (chemotherapy). ? Strong X-ray beams or high-energy capsules to kill cancer cells and shrink tumors (radiation therapy). ? Having been exposed to arsenic. This is a poisonous substance. What are the signs or symptoms? Early symptoms of this condition include: ? Blood in your urine. ? Pain when urinating. ? Infections of your urinary system (urinary tract infections or UTIs) that happen often. ? Having to urinate sooner or more often than normal. Late symptoms of this condition include: ? Not being able to urinate. ? Pain on one side of your lower back. ? Loss of appetite. ? Weight loss. ? Tiredness (fatigue). ? Swelling in your feet. ? Bone pain. How is this diagnosed? This condition is diagnosed based on: ? Your medical history. ? A physical exam. ? Lab tests, such as urine tests. ? Imaging tests. ? Your symptoms. You may also have other tests or procedures, such as: ? A cystoscopy. This involves putting a narrow tube into your urethra. The urethra is the organ that carries urine from your bladder to the outside of your body. This procedure is done to view the lining of your bladder for tumors. ? A biopsy. This involves removing a tissue sample to look at under a microscope to check for cancer. Blood tests or imaging tests may be needed. These show how far into the bladder wall cancer has grown, and if cancer has spread to any other parts of your body. Tests may include: ? CT scan. ? MRI. ? Bone scan. ? X-ray. How is this treated? Your health care provider may recommend one or more types of treatment based on the stage of your cancer. The most common treatments are: ? Surgery to remove the cancer. Types of surgeries include: ? Removing a tumor on the inside wall of the bladder (transurethral resection). ? Removing the bladder (cystectomy). ? Radiation therapy. This is often combined with chemotherapy. ? Chemotherapy. ? Immunotherapy. This uses medicines to help your body's disease-fighting system (immune system) destroy cancer cells. Follow these instructions at home: ? Take gpmh-iri-nyjlkhv and prescription medicines only as told by your health care provider. ? If you were prescribed an antibiotic medicine, take it as told by your health care provider. Do not stop using the antibiotic even if you start to feel better. ? Eat a healthy diet. Some treatments might affect your appetite. ? Do not use any products that contain nicotine or tobacco. These products include cigarettes, chewing tobacco, and vaping devices, such as e-cigarettes. If you need help quitting, ask your health care provider. ? Consider joining a support group. This may help you learn to deal with the stress of having bladder cancer. ? Tell your cancer care team if you develop side effects. Your team may be able to recommend ways to get relief. ? Keep all follow-up visits. This is important. Where to find more information ? [place] [employer] (ACS): cancer.org ? National Cancer [place] (NCI): cancer.gov Contact a health care provider if: ? You have symptoms of a UTI. These include: ? Fever. ? Chills. ? Weakness. ? Muscle aches. ? Pain in your abdomen. ? Urge to urinate that is stronger and happens more often than normal. ? Burning in the bladder or urethra when you urinate. Get help right away if: ? There is blood in your urine. ? You cannot urinate. ? You have severe pain or other symptoms that do not go away. Summary ? Bladder cancer is a condition where tumors grow in the bladder. ? Diagnosis is based on your medical history, a physical exam, lab tests, imaging tests, and your symptoms. ? Your health care provider may recommend one or more types of treatment based on the stage of your cancer. ? Consider joining a support group. This may help you learn to deal with the stress of having bladder cancer. This information is not intended to replace advice given to you by your health care provider. Make sure you discuss any questions you have wi (more content not included)... [facility] Provider Letteron 10-08-2023 Provider Letter (Inserted Image. Ashly ble to display) October 08, [address] [address] : 1970 To Whom It May Concern, Please excuse above patient from work. Date of Illness: From: 09/27/23 To: 10/08/23 May Return to Work On: 10/09/23 Restrictions: Patient may return to work 10/09/23 on light duty. No heavy lifting over 10 lbs. Comments: Patient is being referred to [facility] for bladder cancer treatment. Sincerely, Sonny Santiago M.D., F.A.C.S. [facility] [address] [place] [address] [place], [place] [address] , option # [facility] Comment on above: Other Comment: milton stroud Urology Office/Clinic Noteon 10-08-2023 Urology Office/Clinic Note Chief Complaint S/P TURBT HPI Staff F/u to review pathology from TURBT done 09/27 and Re-TURBT 09/28/23. Dx: bladder mass, hydronephrosis, incomplete bladder emptying, gross hematuria, former smoker and BPH with obstruction/LUTS. Finished Cipro yesterday. Still taking Oxybutynin BID (has 2 pills left) Did pass a couple blood clots, but has not seen visible blood in urine in the past 4-5days. Denies pain. (other than discomfort of catheter) Pt?s catheter has been removed in office today with no complications. They have been advised to drink plenty of fluids. Pt has been instructed to call the office in the event that they are not able to void in the next 4-6 hours, or go the ER. Advised Pt if they experience any severe bleeding, fever over 101 and/ or shaking chills to go to the ER. History of Present Illness Tests reviewed: reviewed path report I have reviewed the previous health record information and history for this patient from Dr. Santiago. I have reviewed and verified the staff HPI to be accurate for this encounter. Review of Systems PHQ Score Initial [...] HPI. Physical Exam Vitals & Measurements HR: 105(Peripheral) RR: 16 BP: 134/88 HT: 70 in HT: 178 cm WT: 82 kg WT: 180.4 lb BMI: 25.88 General Appearance: alert, no distress, well nourished, well developed male. Genitourinary: normal scrotum, normal testes, normal urethra, normal epididymis, normal vas deferens/spermatic cord. Flank Pain: none. Bladder: nonpalpable. Assessment/Plan 1. 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 Renal US 09/08/23 - marked hydronephrosis of RT kidney, lobulated solid mass in the base of the bladder measuring 6.4x5.9x6cm, post void residual 362mL. S/p TURBT 09/27/23. Had >6cm obstructing R hemitrigone which caused hydro. Path showed invasive high-grade papillary urothelial carcinoma with invasion into lamina propria. Muscularis propria is present and does not contain neoplasm. Angiolymphatic invasion not present. S/p TURBT 09/28/23 - Invasive high-grade papillary urothelial carcinoma with invasion into muscularis propria. Angiolymphatic invasion not present. hager catheter was removed in office today. I had a long session of counseling with the patient today. The pathology report reveals that bladder cancer is present, and I discussed the nature of this cancer in detail, including the grade of the cancer and the apparent stage, utilizing diagrams. We discussed the different treatment options for the cancer, based on the grade and stage of tumor. Given muscle invasion and high-grade bladder cancer along with long life expectancy, recommended pt to proceed with radical cystoprostatectomy vs radiation. Discussed referral to tertiary care center for this. Pt agrees. 2. Hydronephrosis (N13.30: Unspecified hydronephrosis) Labs 09/01/23 - CREA 1.61 and BUN 13.0. Advised pt hydro was due to obliteration of R UO. -See #1 3. BPH with obstruction/lower urinary tract symptoms (N40.1: Benign prostatic hyperplasia with lower urinary tract symptoms) PVR 09/18/22 - 234 mL. Previously reported frequency. Discussed pt will likely have colostomy or urostomy bag. -See #1 4. Former smoker (Z87.891: Personal history of nicotine dependence) Smoked for about 20 yrs, quit about 20 yrs ago, 1 PPD. 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 [1] Follow-up With When Contact Information JACK BLOCK, Sonny Aguilar, [facility] [address], [place] [address] [phone] Additional Instructions: referral to discuss prostatocystectomy Patient Education Radical Cystectomy, Care After Radical Cystectomy Bladder Cancer IAlie, personally scribed for Dr. Santiago on 10/08/2023 11:20:57. . Documentation recorded by the scribe, Alie Rashid, accurately reflects the services(s) I performed and decisions made by me. Authenticated by Dr. Santiago on 10/08/2023 11:23:05. Problem List/Past Medical History Ongoing Bladder mass BPH with obstruction/lower urinary tract symptoms Depression Former smoker Gross hematuria High cholesterol Hydronephrosis Incomplete bladder emptying Urothelial carcinoma of bladder w (more content not included)... Normal [facility] Comment on above: Result Comment: Elec tronically Signed By: Sonny SANTIAGO MD\.br\Date and Time Signed: 10/08/23 11:23 EST\.br\Electronically Co-Signed By: Alie Rashid\.br\Date and Time Co-Signed: 10/08/23 11:21 EST Pathology Reporton Pathology Report [id number] [facility] IntraOperative Documentson 0 10-03-2023 IntraOperative Documents [id number] [facility] IntraOperative Documents [id number] [facility] Provider Letteron 10-03-2023 Provider Letter (Inserted Image. Ashly ble to display) October 03, [address] [address] : 1970 To Whom It May Concern, Please excuse above patient from work. Date of Illness: From: 09/27/2023 To: 10/08/2023 May Return to Work On: 10/09/2023 Restrictions: No work 09/27/23- 10/08/23 Comments: Patient had 2 surgical procedures done on 09/27/23 and 09/28/23 and needs to be excused from work until 10/09/23. He will return to work without restrictions on 10/09/23. Sincerely, [facility] Normal [facility] Consent for Anesthesiaon Consent for Anesthesia [id number] Normal [facility] IntraOperative Documentson 0 10-02-2023 IntraOperative Documents [id number] Normal [facility] Inpatient Clinical Summaryon 10-01-2023 Inpatient Clinical Summary [address] [address] Clinical Summary Person Information: Name: INDRA OLIVAREZ Age: 53 Years : 1970 Sex: Male PCP: Sayra Whitfield MD Marital Status: Race: White Ethnicity: Non- or Language: Maltese Visit Id: Visit Reason: PER ELLEN Speciality: Acuity: Enc Type: Ambulatory/Same Day Surgery Med Service: Medical Arrival: 09/27/2023 11:38:34 Discharge: 09/28/2023 21:45:00 Dispo Type: Home (Routine DC) Address: [address] [place] [id number] Provider Notes: Diagnosis: 1:Bladder mass; 2:Elevated serum creatinine; 3:Depression; 4:On deep vein thrombosis (DVT) prophylaxis Problems Active BPH with obstruction/lower urinary tract symptoms Former smoker Gross hematuria Incomplete bladder emptying Hydronephrosis High cholesterol Depression Bladder mass Smoking Status: Former Smoker Functional Status: Sensory Deficits: Other: glasses History of Falls: Mobility Assistance Prior to Admission: Independent ADLs: Independent Current Level of Assistance for Self-Care/Mobility: Cognitive Status: Allergies No Known Medication Allergies Measurements: Height: 178.5 cm Weight: 80.8 kg Blood Pressure: 123 mmHg / 81 mmHg BMI: 25.42 kg/m2 Procedures History of hernia repair Excision Cystoscopy (09/28/2023) Cystoscopy (09/27/2023) Immunizations No Immunizations Documented This Visit Final Med List: cephalexin (cephalexin 500 mg Cap) 1 Capsules By Mouth every 12 hours. Refills: 0. mirtazapine (mirtazapine 30 mg Tab) 1 Tablets By Mouth once a day (at bedtime). oxybutynin (oxybutynin 10 mg ER Tab) 1 Tablets By Mouth every day. Refills: 0. Care Team Members: Attending Physician: Sonny SANTIAGO MD Consulting Physician: Chelo FALL DO Referring Physician: Sonny SANTIAGO MD Follow up: With: Address: When: Sayra Whitfield [facility] [facility], [place] [address] Business (1) With: Address: When: Sonny SANTIAGO [facility], [address], [facility] [place] [address] Business (1) In 1 week 10/04/2023 Type Location Start [facility] URO Office Visit [facility] [place] 10/08/2023 9:45 AM 10/08/2023 10:00 AM Confirmed Patient Education Information: Cystoscopy; Managing Depression, Adult; Hager Catheter Care, Male-[facility](CUSTOM); Indwelling Urinary Catheter Care, Adult Normal [facility] Inpatient Patient Summaryon 10-01-2023 Inpatient Patient Summary [address] [address] Patient Discharge Instructions PERSON INFORMATION Name: INDRA OLIVAREZ Date of : 1970 Current Date: 10/01/2023 09:14:58 PHYSICIANS Admitting Physician: Sonny SANTIAGO MD Primary Care Physician: Sayra Whitfield MD PCP Comment: Discharge Diagnosis: 1:Bladder mass; 2:Elevated serum creatinine; 3:Depression; 4:On deep vein thrombosis (DVT) prophylaxis Condition at Discharge: INDRA OLIVAREZ has been given the following list of follow-up instructions, prescriptions, and patient education materials: PATIENT FOLLOW-UP INFORMATION Diet: Regular Discharge Activity: Do not lift more than 5 lbs Discharge Restrictions: No driving for 24 hrs Wound Care Instructions: Remove Your Dressing In Days Call Your Doctor For: Temperature above 101.5 degrees IF UNABLE TO CONTACT YOUR PHYSICIAN AND YOU FEEL IT IS AN EMERGENCY, GO TO THE NEAREST EMERGENCY ROOM OR CALL 911 Home Treatment: Other: none Devices/Equipment: Other: hager catheter Special Services: Additional Instructions: Primary Care Physician to provide the following pending test results: Follow up: With: Address: When: Sayra Whitfield [address] [facility], [place] [address] Business (1) With: Address: When: Sonny SANTIAGO [facility], [address], [place] [address] Business (1) In 1 week 10/04/2023 In the event that this physician does not participate in your insurance network, please consult with your insurance company to find a nearby participating provider. Type Location Start [facility] URO Office Visit [facility] [place] 10/08/2023 9:45 AM 10/08/2023 10:00 AM Confirmed Comment: SHER Diggs TROY A, have received the attached patient education materials/instructions and have verbalized understanding: Patient Signature ____ Date Clinican/Nurse Signature Date HERE ARE THE MEDICATION CHANGES THAT OCCURRED DURING YOUR HOSPITAL STAY Medications to Continue with No Changes [id number], [address], [place] [id number], [phone] cephalexin (cephalexin 500 mg Cap) 1 Capsules By Mouth every 12 hours. Refills: 0. Last Dose: Next Dose: oxybutynin (oxybutynin 10 mg ER Tab) 1 Tablets By Mouth every day. Refills: 0. Last Dose: Next Dose: Other Medications mirtazapine (mirtazapine 30 mg Tab) 1 Tablets By Mouth once a day (at bedtime). Last Dose: Next Dose: Comment: MEDICATION LIST PROVIDED FOR YOU IS A LIST OF YOUR CURRENT MEDICATIONS. PLEASE CARRY THIS WITH YOU AT ALL TIMES. cephalexin (cephalexin 500 mg Cap) 1 Capsules By Mouth every 12 hours. Refills: 0. mirtazapine (mirtazapine 30 mg Tab) 1 Tablets By Mouth once a day (at bedtime). oxybutynin (oxybutynin 10 mg ER Tab) 1 Tablets By Mouth every day. Refills: 0. Pharmacy Information: [facility] [place] Comment: PATIENT EDUCATION INFORMATION Instructions: Cystoscopy Cystoscopy is a procedure that is used to help diagnose and sometimes treat conditions that affect the lower urinary tract. The lower urinary tract includes the bladder and the urethra. The urethra is the tube that drains urine from the bladder. Cystoscopy is done using a thin, tube-shaped instrument with a light and camera at the end (cystoscope). The cystoscope may be hard or flexible, depending on the goal of the procedure. The cystoscope is inserted through the urethra, into the bladder. Cystoscopy may be recommended if you have: ? Urinary tract infections that keep coming back. ? Blood in the urine (hematuria). ? An inability to control when you urinate (urinary incontinence) or an overactive bladder. ? Unusual cells found in a urine sample. ? A blockage in the urethra, such as a urinary stone. ? Painful urination. ? An abnormality in the bladder found during an intravenous pyelogram (IVP) or CT scan. Cystoscopy may also be done to remove a sample of tissue to be examined under a microscope (biopsy). Tell a health care provider about: ? Any allergies you have. ? All medicines you are taking, including vitamins, herbs, eye drops, creams, and vgtf-xcy-ymhwuiw medicines. ? Any problems you or family members have had with anesthetic medicines. ? Any blood disorders you have. ? Any surgeries you have had. ? Any medical conditions you have. ? Whether you are or may be . What are the risks? Generally, this is a safe procedure. However, problems may occur, including: ? Infection. ? Bleeding. ? Allergic reactions to medicines. ? Damage to other structures or organs. What happens before the procedure? Medicines Ask your (more content not included)... Normal [facility] Main OR Intraoperative Recor don 10-01-2023 Main OR Intraoperative Record IntraOp Document Type FT Summary Primary Physician: Sonny SANTIAGO MD Finalized Date/Time: 10/01/23 10:58:27 Pt. Name: INDRA OLIVAREZ Maddie Tucker./Sex: 1970 Male Med Rec #: [id number] Physician: Sonny SANTIAGO MD Financial #: [id number] Pt. Type: A Room/Bed: [place] [address] Admit/Disch: 09/27/23 11:38:34 - 09/28/23 21:45:00 Institution: Case Times FT Entry 1 Patient Times In Room 09/28/23 16:03:00 Out Room 09/28/23 17:34:00 Procedure Times Start 09/28/23 16:18:00 Stop 09/28/23 17:27:00 Anesthesia Times Start 09/28/23 16:03:00 Stop 09/28/23 17:34:00 Last Modified By: Chace PABLO, Leonie Cayr 09/28/23 17:34:49 General Comments: 10/01/23 Chart opened to review and send charges LRoth CSFA Case Attendance FT Entry 1 Entry 2 Entry 3 Case Attendee JACK BLOCK, Sonny EISENBERG, David Grajeda RN, Cris Barkley Role Performed Surgeon - Primary Anesthesiologist Service Dismantler - Primary Fur Trimmer Time In 09/28/23 16:03:00 09/28/23 16:03:00 09/28/23 16:03:00 Time Out 09/28/23 17:34:00 09/28/23 17:34:00 09/28/23 17:05:00 Procedure CYSTOSCOPY TURB(.) CYSTOSCOPY TURB(.) CYSTOSCOPY TURB(.) Comments dr. zimmer supervising Last Modified By: Chace PABLO, Leonie Mas RN, Leonie Mas RN, Leonie Cary 09/28/23 17:49:16 09/28/23 17:49:16 09/28/23 17:49:16 Entry 4 Entry 5 Entry 6 Case Attendee Yamini Martinez RT, Maria Fernanda Mas RN, Leonie Cary Role Performed Scrub - Primary Cleaner Window Service Dismantler - Relief Time In 09/28/23 16:03:00 09/28/23 16:03:00 09/28/23 16:45:00 Time Out 09/28/23 17:05:00 09/28/23 17:34:00 09/28/23 17:34:00 Procedure CYSTOSCOPY TURB(.) CYSTOSCOPY TURB(.) CYSTOSCOPY TURB(.) Comments Last Modified By: Chace RN, Leonie Mas RN, Leonie Mas RN, Leonie Cary 09/28/23 17:49:16 09/28/23 17:49:16 09/28/23 17:49:16 Entry 7 Case Attendee Gopal Grigsby Role Performed Scrub - Relief Time In 09/28/23 17:00:00 Time Out 09/28/23 17:34:00 Procedure CYSTOSCOPY TURB(.) Comments Last Modified By: Leonie Mas RN 09/28/23 17:49:16 Perioperative Protocols FT Pre-Care Text: Implements protective measures prior to operative or invasive procedure, confirms identity before the operative or invasive procedure, verifies operative procedure, surgical site, and laterality Entry 1 Procedure(s) CYSTOSCOPY TURB(.) Patient Identity Birthday, ID Band Verified (select at Check, Patient least 2): Participation Consents / H and P Anesthesia Consent, Operative Site N/A Verified HandP, Surgery/Procedure Marking Verified Consent Surgical Site Yes Laterality Verified Yes Verified Procedure Verified Yes Correct Patient Yes Position Verified Availability Equipment, Implant, Prep Dry n/a Verified (If Medication, X-ray Applicable) PreOp Antibiotic Yes Time Out JACK BLOCK, Sonny Aguilar, Given Participants Nicci PABLO, Cris Barkley, Yamini Martinez Frantz RT, Maria Fernanda Aguilar Time Out Complete 09/28/23 16:18:00 Outcomes Met? Yes Last Modified By: Nicci PABLO, Cris Barkley 09/28/23 16:25:47 Post-Care Text: The patient is free from signs and symptoms of injury caused by extraneous objects Allergy Information FT Pre-Care Text: Verifies allergies Entry 1 Allergies Reviewed? Yes Allergies Reviewed Self/Patient With Outcomes Met? Yes Last Modified By: Cris Grajeda RN 09/28/23 16:25:02 Post-Care Text: The patient received appropriate medication(s) safely administered during the perioperative period Surgical Procedures FT Entry 1 Procedure Description Procedure CYSTOSCOPY TURB Modifiers . Surgeon Description CYSTOSCOPY TURB Primary Procedure Yes Primary Surgeon Sonny SANTIAGO MD Start 09/28/23 16:18:00 Stop 09/28/23 17:27:00 Anesthesia Type General Surgical Service Urology Wound Class 2 - Clean-Contaminated Last Modified By: Leonie Mas RN 09/28/23 17:49:10 General Case Data FT Pre-Care Text: Classifies surgical wound, implements aseptic technique, initiates traffic control Entry 1 Case Information OR OR 1 FT Case Level Level 3 Wound Class 2 - Clean-Contaminated Specialty Urology ASA Class 2 Preop Diagnosis bladder tumor Postop Same As Preop Yes Postop Diagnosis bladder tumor Outcomes Met? Yes Last Modified By: Cris Grajeda RN 09/28/23 16:26:01 Post-Care Text: The patient is free from signs and symptoms of infection Skin Assessment (Pre Procedure) FT Pre-Care Text: Implements protective measures to prevent skin/ tissue injury due to thermal or mechanical sources Evaluates for signs and symptoms of physical injury to skin and tissue Entry 1 Skin Integrity Intact, Kaufman, Warm, and Skin Abnormality No Dry Outcomes Met? Yes Last Modified By: Cris Grajeda RN 09/28/23 16:26:08 Post-Care Text: The patient is free from signs and symptoms of injury caused by extraneous objects Patient Positioning FT Pre-Care Text: Identifies physical alterations that r (more content not included)... Normal [facility] Discharge Instructionson Discharge Instructions [id number] [facility] Progress Note-Physicianon Progress Note-Physician Patient: INDRA OLIVAREZ Age: 53 years Sex: Male : 1970 Associated Diagnoses: None Author: MD Proctor Ahmad F Postoperative Information Postoperative disposition: Postoperative disposition: To PACU. Optimetrix number: Optimetrix number [id number]. Anesthetic utilized: General. Health Status Allergies: Allergic Reactions (Selected) No Known Medication Allergies Physical Examination VS/Measurements Pain Assessment: Controlled. General: Awake, Alert, Appropriate. Respiratory: Adequate air exchange. Cardiovascular: Stable, Normal peripheral perfusion. Neurological: Normal sensory function, Normal motor function. Assessment Anesthetic outcome No anesthetic complications noted. Adequate pain relief. able to void without difficulty, able to ambulate with assist, tolerating PO intake, no N/V. Review / Management Condition: Stable. Plan Transfer/Discharge: Transfer/Discharge Discharge when meets criteria ( To home ). [facility] Comment on above: Result Comment: Elec tronically Signed By: MD Proctor Ahmad F\.br\Date and Time Signed: 09/30/23 19:51 EST Progress Note-Physician Patient: INDRA OLIVAREZ Age: 53 years Sex: Male : 1970 Associated Diagnoses: None Author: MD Hitesh, Michael Christy Preoperative Information Time patient last ate or drank:=== (npo 8 hours) Anesthesia history: Patient history: No prior anesthesia problems. Re-evaluation prior to induction: Completed, Initial evaluation reviewed. Review of Systems Respiratory: No shortness of breath. Cardiovascular: No chest pain. Hematology/Lymphatics: No bruising tendency, No bleeding tendency. Health Status Allergies: Allergic Reactions (All) No Known Medication Allergies Current medications: (Selected) Prescriptions Prescribed cephalexin 500 mg Cap: 500 mg = 1 cap(s), Oral, q12hr, # 20 cap(s), Refills(s) 0, Pharmacy: [id number], 178.5, cm, 09/27/23 11:53:00 EST, Height/Length Dosing, 81, kg, 09/27/23 11:53:00 EST, Weight Dosing oxybutynin 10 mg ER Tab: 10 mg = 1 tab(s), Oral, Daily, # 7 tab(s), Refills(s) 0, Pharmacy: [id number], 178.5, cm, 09/27/23 11:53:00 EST, Height/Length Dosing, 81, kg, 09/27/23 11:53:00 EST, Weight Dosing Documented Medications Documented mirtazapine 30 mg Tab: 30 mg = 1 tab(s), Oral, Once a day (at bedtime), Refills(s) 0, Depression Problem list: All Problems Bladder mass / SNOMED CT 5376218219 / Confirmed Depression / SNOMED CT 82028783 / Confirmed High cholesterol / SNOMED CT 01640171 / Confirmed Hydronephrosis / SNOMED CT 08812221 / Confirmed Incomplete bladder emptying / SNOMED CT 022344302 / Confirmed Gross hematuria / SNOMED CT 176873948 / Confirmed Former smoker / SNOMED CT 70328500 / Confirmed 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 Family History: Cancer Mother Heart disease Father High cholesterol Father Procedure history: Cystoscopy ([id number]) on 09/28/2023 at 53 Years. Cysto TURBT ([id number]) on 09/27/2023 at 53 Years. Colonoscopy (038366996). Excision cyst x 3 surgeries (814289713). History of hernia repair (3894379441). Social History Social & Psychosocial Habits Alcohol 09/28/2023 Risk Assessment: Denies Alcohol Use Substance Abuse 09/28/2023 Risk Assessment: Denies Substance Abuse Tobacco 09/28/2023 Tobacco Use: Former smoker, quit more Smokeless tobacco use: Smokeless tobacco user wi Type: Cigarettes, Oral Smoking Cessation Yes . Physical Examination Please see preop flow sheet Airway: Mallampati classification: II (soft palate, fauces, uvula visible). Respiratory: Lungs are clear to auscultation. Cardiovascular: Normal rate, Regular rhythm. Neurologic: Alert. Review / Management Results review Interpretation of Outside Results Chest x-ray results Radiology results ECG interpretation Condition Plan [place] [employer]esthesiologists (ASA) physical status classification: Class II. Anesthetic Preoperative Plan Anesthesia: General. . Anesthetic plan, risks, benefits, and alternatives discussed with the patient and/or family. Risks discussed: nausea, vomiting, headache, sore throat, dental injury, serious complications. Patient verbalized understanding. Communication: face to face with patient 5 minutes. Normal [facility] Comment on above: Result Comment: Elec tronically Signed By: MD Hitesh, Michael Christy\.br\Date and Time Signed: 09/30/23 19:50 EST BMPon 09-28-2023 Anion gap [Moles/Vol] 13 mmol/L Normal 6-16 [facility] Comment on above: Performed By: #### 1 [id number], 1802616, 5027797 ####[facility] [address] [place] [address] BUN/Creat Ratio 11 No Units Normal 10-20 [facility] Comment on above: Performed By: #### 1 8411214, 7747989, 1407292 ####[facility] [address] [place] [address] Calcium [Mass/Vol] 9.4 mg/dL Normal 8.9-11.1 [facility] Comment on above: Performed By: #### 1 0239121, 5033412, 6363893 ####[facility] [address] [place] [address] Chloride [Moles/Vol] 102 mmol/L Normal 101-[address] [facility] Comment on above: Performed By: #### 1 4390875, 4683029, 3411618 ####[facility] [address] [place] [address] CO2 [Moles/Vol] 26 mmol/L Normal 21-31 [facility] Comment on above: Performed By: #### 1 8102014, 2739570, 5845078 ####[facility] [address] [place] [address] Creatinine [Mass/Vol] 1.5 mg/dL High 0.5-1.3 [facility] Comment on above: Performed By: #### 1 3288272, 3853893, 7783644 ####[facility] [address] [place] [address] Glucose [Mass/Vol] 128 mg/dL Normal 55-199 [facility] Comment on above: Performed By: #### 1 2348436, 4746337, 3533499 ####[place] [address] [place] [address] Potassium [Moles/Vol] 4.4 mmol/L Normal 3.5-5.3 [facility] Comment on above: Performed By: #### 1 0257465, 3561932, 9554821 ####[address] [address] Sodium [Moles/Vol] 137 mmol/L Normal 135-145 [facility] Comment on above: Performed By: #### 1 8026464, 6556781, 5681477 ####[address] [address] Urea nitrogen [Mass/Vol] 16 mg/dL Normal 5-21 [facility] Comment on above: Performed By: #### 1 4428031, 1271948, 1997481 ####[address] [address] CBC w/ Auto Diffon 4 Basophil Absolute 0.0 E9/L Normal 0.0-0.2 [facility] Comment on above: Performed By: #### 1 9158722, 1181757, 5962807 ####[address] [address] Basophils/100 WBC (Bld) 0.2 % Normal 0.0-2.0 [facility] Comment on above: Performed By: #### 1 4035330, 0240269, 8515586 ####[address] [address] Eos Absolute 0.0 E9/L Normal 0.0-0.5 [facility] Comment on above: Performed By: #### 1 7188527, 9801863, 6040324 ####[address] [address] Eosinophils/100 WBC (Bld) 0.0 % Normal 0.0-8.0 [facility] Comment on above: Performed By: #### 1 7253919, 2188766, 6961814 ####[address] [address] Erythrocyte distribution width (RBC) [Ratio] 13.7 % Normal 10.9-14.2 [facility] Comment on above: Performed By: #### 1 0713282, 0880938, 8517799 ####[address] [address] Hematocrit (Bld) [Volume fraction] 47.0 % Normal 37.7-49.0 [facility] Comment on above: Performed By: #### 1 0700464, 3964547, 9662670 ####[place] [address] Hemoglobin (Bld) [Mass/Vol] 15.6 g/dL Normal 13.5-17.5 [facility] Comment on above: Performed By: #### 1 7206051, 4274704, 7949814 ####[place] [address] Lymph Absolute 1.2 E9/L Normal 1.0-4.0 [facility] Comment on above: Performed By: #### 1 0646582, 9193224, 5231783 ####[address] [address] Lymphocytes/100 WBC (Bld) 7.8 % Low 14.0-50.0 [facility] Comment on above: Performed By: #### 1 6213578, 1335172, 0718620 ####[address] [address] MCH (RBC) [Entitic mass] 31.6 pg Normal 27.0-34.0 [facility] Comment on above: Performed By: #### 1 9292795, 9926139, 5626032 ####[address] [address] MCHC (RBC) [Mass/Vol] 33.4 g/dL Normal 31.4-36.0 [facility] Comment on above: Performed By: #### 1 1538436, 1497217, 4675637 ####[address] [address] MCV (RBC) [Entitic vol] 94.7 fL Normal 80.0-100.0 [facility] Comment on above: Performed By: #### 1 4545977, 6677032, 6941343 ####[address] [address] [place] Absolute 0.6 E9/L Normal 0.2-1.0 [facility] Comment on above: Performed By: #### 1 6218725, 0904071, 9144874 ####[address] [address] Monocytes/100 WBC (Bld) 3.7 % Low 4.0-14.0 [facility] Comment on above: Performed By: #### 1 3255887, 2011544, 2212052 ####[address] [address] Neutro Absolute 13.5 E9/L High 2.0-7.5 [facility] Comment on above: Performed By: #### 1 1697392, 1950435, 2811502 ####[address] [address] Neutro Auto 88.3 % High 36.0-75.0 [facility] Comment on above: Performed By: #### 1 3991895, 3080321, 1955976 ####[address] [address] Platelet 268.0 E9/L Normal 150.0-500.0 [facility] Comment on above: Performed By: #### 1 0121842, 5137245, 1382327 ####[address] [address] Platelet mean volume (Bld) [Entitic vol] 8.9 fL Normal 6.4-10.8 [facility] Comment on above: Performed By: #### 1 2508895, 2776587, 0122791 ####[place] [address] [place] [address] RBC 4.9 E12/L Normal 4.3-5.9 [facility] Comment on above: Performed By: #### 1 7194365, 0846709, 6159872 ####[facility] [address] [place] [address] WBC 15.3 E9/L High 4.0-11.0 [facility] Comment on above: Result Comment: Veri fied with slide review Performed By: #### 1 0869596, 4662381, 7913882 ####[facility] [address] [place] [address] CHEMISTRYOrdered By: SYSTEM SYSTEM on 09-28-2023 Anion gap [Moles/Vol] 13 mmol/L Normal 6 - 16 mEq/L R emisol Chem Calcium [Mass/Vol] 9.4 mg/dL Normal 8.9 - 11. 1 mg/dL [facility] Chloride [Moles/Vol] 102 mmol/L Normal 101 - 1 11 mmol/L [facility] CO2 [Moles/Vol] 26 mmol/L Normal 21 - 31 mmol/L [facility] Creatinine [Mass/Vol] 1.5 mg/dL High 0.5 - 1.3 mg/dL [facility] eGFR 56 mL/min/1.73 m2 Low >=59mL/min /1 .73 m2 [facility] Glucose [Mass/Vol] 128 mg/dL Normal 55 - 199 mg/dL [facility] Potassium [Moles/Vol] 4.4 mmol/L Normal 3.5 - 5.3 mmol/L [facility] Sodium [Moles/Vol] 137 mmol/L Normal 135 - 145 mmol/L Remisol Chem Urea nitrogen [Mass/Vol] 16 mg/dL Normal 5 - 21 mg/dL Remisol Chem Urea nitrogen/Creatinine [Mass ratio] 11 mg/mg Normal 10 - 20 Remisol Chem Consent for Anesthesiaon Consent for Anesthesia [id number] Normal [facility] Consent for Procedure/Surger yon 09-28-2023 Consent for Procedure/Surgery [id number] [facility] Discharge Note-Nursingon Discharge Note-Nursing INDRA OLIVAREZ :1970 Visit Date:09/27/2023 Inpatient Discharge Instructions Your Care Team Admitting Physician - Sonny SANTIAGO MD Consulting Physician - Chelo FALL DO Referring Physician - Sonny SANTIAGO MD Reason for Your Visit PER ELLEN Your Diagnosis Bladder mass Elevated serum creatinine Depression On deep vein thrombosis (DVT) prophylaxis Tests Performed BMP -- Results Pending -- CBC w/ Auto Diff -- Results Pending -- Pathology Tissue Exam -- Results Pending -- Urinalysis with Culture Reflex -- Results Pending -- Please visit your patient portal for your results or contact your primary care physician. This Is Your Medications List cephalexin (cephalexin 500 mg Cap) mirtazapine (mirtazapine 30 mg Tab) oxybutynin (oxybutynin 10 mg ER Tab) Procedure History Cystoscopy (09/28/2023), Cystoscopy (09/27/2023), Colonoscopy, Excision, History of hernia repair. Discharge Vitals Temperature (Temporal Artery) 36.8 ?C Heart Rate (Monitored) 62 Respiratory Rate 20 Blood Pressure 123/81 Height 178.5 cm Weight 80.8 kg What to do next Instructions From Your Doctor Event Name Event Result Discharge Activity Do not lift more than 5 lbs Discharge Restrictions No driving for 24 hrs Discharge Diet(s) Regular Call Your Doctor For Temperature above 101.5 degrees Pharmacy Information [facility] Discharge Instructions Catheter needs to get irrigated if no urine output for 1 hourDo not return to work until seen in office. Previously Scheduled Follow-Up Appointments Sunday 9:45 AM EST With: Sonny SANTIAGO MD Where: [facility] HEMATOLOGYOrdered By: SYSTEM SYSTEM on 09-28-2023 Basophil Absolute 0.0 E9/L Normal 0.0 - 0.2 E9/L Remisol Heme Basophils/100 WBC (Bld) 0.2 % Normal 0.0 - 2.0 % Remisol Heme Eos Absolute 0.0 E9/L Normal 0.0 - 0.5 E9/L Remisol Heme Eosinophils/100 WBC (Bld) 0.0 % Normal 0.0 - 8.0 % Remisol Heme Erythrocyte distribution width (RBC) [Ratio] 13.7 % Normal 10.9 - 14.2 % Remisol Heme Hematocrit (Bld) [Volume fraction] 47.0 % Normal 37.7 - 49.0 % Remisol Heme Hemoglobin (Bld) [Mass/Vol] 15.6 g/dL Normal 13.5 - 17.5 gm/dL Remisol Heme Lymph Absolute 1.2 E9/L Normal 1.0 - 4.0 E9/L Remisol Heme Lymphocytes/100 WBC (Bld) 7.8 % Low 14.0 - 50.0 % Remisol Heme MCH (RBC) [Entitic mass] 31.6 pg Normal 27.0 - 34.0 pg Remisol Heme MCHC (RBC) [Mass/Vol] 33.4 g/dL Normal 31.4 - 36.0 gm/dL Remisol Heme MCV (RBC) [Entitic vol] 94.7 fL Normal 80.0 - 100.0 fL Remisol Heme [place] Absolute 0.6 E9/L Normal 0.2 - 1.0 E9/L Remisol Heme Monocytes/100 WBC (Bld) 3.7 % Low 4.0 - 14.0 % Remisol Heme Neutro Absolute 13.5 E9/L High 2.0 - 7.5 E9/L Remisol Heme Neutro Auto 88.3 % High 36.0 - 75.0 % Remisol Heme Platelet 268.0 E9/L Normal 150.0 - 500.0 E9/L Remisol Heme Platelet mean volume (Bld) [Entitic vol] 8.9 fL Normal 6.4 - 10.8 fL Remisol Heme RBC 4.9 E12/L Normal 4.3 - 5.9 E12/L Remisol Heme WBC 15.3 E9/L High 4.0 - 11.0 E9/L Remisol Heme Comment on above: Result Comment: Samir unger with slide review Inpatient Patient Summaryon 09-28-2023 Inpatient Patient Summary INDRA OLIVAREZ :1970 Visit Date:09/27/2023 Inpatient Discharge Instructions Your Care Team Admitting Physician - Sonny SANTIAGO MD Consulting Physician - Chelo FALL DO Referring Physician - Sonny SANTIAGO MD Reason for Your Visit PER ELLEN Your Diagnosis Bladder mass Elevated serum creatinine Depression On deep vein thrombosis (DVT) prophylaxis Tests Performed BMP -- Results Pending -- CBC w/ Auto Diff -- Results Pending -- Pathology Tissue Exam -- Results Pending -- Urinalysis with Culture Reflex -- Results Pending -- Please visit your patient portal for your results or contact your primary care physician. This Is Your Medications List cephalexin (cephalexin 500 mg Cap) mirtazapine (mirtazapine 30 mg Tab) oxybutynin (oxybutynin 10 mg ER Tab) Procedure History Cystoscopy (09/28/2023), Cystoscopy (09/27/2023), Colonoscopy, Excision, History of hernia repair. Discharge Vitals Temperature (Temporal Artery) 36.8 ?C Heart Rate (Monitored) 62 Respiratory Rate 20 Blood Pressure 123/81 Height 178.5 cm Weight 80.8 kg What to do next Instructions From Your Doctor Event Name Event Result Discharge Activity Do not lift more than 5 lbs Discharge Restrictions No driving for 24 hrs Discharge Diet(s) Regular Call Your Doctor For Temperature above 101.5 degrees Pharmacy Information [facility] Discharge Instructions Catheter needs to get irrigated if no urine output for 1 hourDo not return to work until seen in office. Previously Scheduled Follow-Up Appointments Sunday 9:45 AM EST With: Sonny SANTIAGO MD Where: [facility] Insurance Correspondence Off ice09-28-2023 Insurance Correspondence Office [id number]#[id number] [facility] Interdisciplinary Note - Jesus e Manageron 09-28-2023 Interdisciplinary Note - Network Architect Pt is awake and alert in bed, previously rounded with Caroline DHALIWAL. Family at bedside. Pt is independent from home, family will transport at [place]. Pt had surgery yesterday with urology, currently has CBI infusion for pink/red urine and pt is aware of plan to return back to surgery today, does not yet know time. Declines any concerns or anticipated DC needs. CRM following . PCP verified and insurance information reviewed and DME discussed. Contact information provided and white board updated. [facility] Comment on above: Result Comment: Elec tronically Signed By: Taco PABLO, Arelis\.br\Date and Time Signed: 09/28/23 11:36 EST IntraOperative Documentson 0 09-28-2023 IntraOperative Documents [id number] Normal [facility] Main OR Intraoperative Recor don 09-28-2023 Main OR Intraoperative Record IntraOp Document Type FT Summary Primary Physician: Sonny SANTIAGO MD Finalized Date/Time: 09/28/23 11:20:38 Pt. Name: INDRA OLIVAREZ Maddie Tucker./Sex: 1970 Male Med Rec #: [id number] Physician: Sonny SANTIAGO MD Financial #: [id number] Pt. Type: A Room/Bed: [place] [address] Admit/Disch: 09/27/23 11:38:34 - Institution: Case Times FT Entry 1 Patient Times In Room 09/27/23 14:49:00 Out Room 09/27/23 16:55:00 Procedure Times Start 09/27/23 15:09:00 Stop 09/27/23 16:45:00 Anesthesia Times Start 09/27/23 14:49:00 Stop 09/27/23 16:55:00 Last Modified By: Mana Pyle Ii 09/27/23 16:59:03 General Comments: 09/28/23 Chart opened to review and send charges LRoth CSFA Case Attendance FT Entry 1 Entry 2 Entry 3 Case Attendee Nata DNP, DIRECTOR MEDICAL ECONOMICS, Queen JACK BLOCK, Sonny Castillo DREDGE OPERATOR, Beryan N. Role Performed DIRECTOR MEDICAL ECONOMICS Surgeon - Primary Scrub - Primary Time In 09/27/23 14:49:00 09/27/23 14:49:00 09/27/23 14:49:00 Time Out 09/27/23 16:55:00 09/27/23 16:55:00 09/27/23 16:55:00 Procedure CYSTOSCOPY RETROGRADE CYSTOSCOPY RETROGRADE CYSTOSCOPY RETROGRADE PYELOGRAM(Right), PYELOGRAM(Right), PYELOGRAM(Right), CYSTOSCOPY TURB(Right), CYSTOSCOPY TURB(Right), CYSTOSCOPY TURB(Right), CYSTOSCOPY CYSTOSCOPY CYSTOSCOPY URETEROSCOPY(Right), URETEROSCOPY(Right), URETEROSCOPY(Right), CYSTOSCOPY STENT CYSTOSCOPY STENT CYSTOSCOPY STENT INSERTION(Right) INSERTION(Right) INSERTION(Right) Comments 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 Last Modified By: Mana Pyle Ii, Alfons Ii F Letrondo, Alfons Ii F 09/27/23 16:59:06 09/27/23 16:59:06 09/27/23 16:59:06 Entry 4 Entry 5 Entry 6 Case Attendee Bulmaro RT(R), Mana Navarro Ii RT, Maria Fernanda Cortes Role Performed Cleaner Window Service Dismantler - Primary Cleaner Window Time In 09/27/23 14:49:00 09/27/23 14:49:00 09/27/23 16:20:00 Time Out 09/27/23 16:19:00 09/27/23 16:55:00 09/27/23 16:55:00 Procedure CYSTOSCOPY RETROGRADE CYSTOSCOPY RETROGRADE CYSTOSCOPY RETROGRADE PYELOGRAM(Right), PYELOGRAM(Right), PYELOGRAM(Right), CYSTOSCOPY TURB(Right), CYSTOSCOPY TURB(Right), CYSTOSCOPY TURB(Right), CYSTOSCOPY CYSTOSCOPY CYSTOSCOPY URETEROSCOPY(Right), URETEROSCOPY(Right), URETEROSCOPY(Right) CYSTOSCOPY STENT CYSTOSCOPY STENT INSERTION(Right) INSERTION(Right) Comments relief Last Modified By: Mana Pyle Ii, Alfons Ii F Letrondo, Alfons Ii Westley 09/27/23 16:59:06 09/27/23 16:59:06 09/27/23 16:59:06 Perioperative Protocols FT Pre-Care Text: Implements protective measures prior to operative or invasive procedure, confirms identity before the operative or invasive procedure, verifies operative procedure, surgical site, and laterality Entry 1 Procedure(s) CYSTOSCOPY RETROGRADE Patient Identity Birthday, ID Band PYELOGRAM(Right), Verified (select at Check, Patient CYSTOSCOPY TURB(Right), least 2): Participation CYSTOSCOPY URETEROSCOPY(Right), CYSTOSCOPY STENT INSERTION(Right) Consents / H and P Anesthesia Consent, Operative Site N/A Verified HandP, Surgery/Procedure Marking Verified Consent Surgical Site Yes Laterality Verified Yes Verified Procedure Verified Yes Correct Patient Yes Position Verified Availability Equipment, Medication, Prep Dry No Verified (If X-ray Applicable) PreOp Antibiotic Yes Time Out Nata BELLAMY, DIRECTOR MEDICAL ECONOMICS, Queen Edilberto Participants NDaron, JACK BLOCK, Anna Carter CST, Beau, Letrondo, Alfons Ii F Time Out Complete 09/27/23 15:03:00 Outcomes Met? Yes Last Modified By: Mana Pyle Ii 09/27/23 15:31:31 Post-Care Text: The patient is free from signs and symptoms of injury caused by extraneous objects Allergy Information FT Pre-Care Text: Verifies allergies Entry 1 Allergies Reviewed? Yes Allergies Reviewed Self/Patient With Outcomes Met? Yes Last Modified By: Mana Pyle Ii 09/27/23 13:36:19 Post-Care Text: The patient received appropriate medication(s) safely administered during the perioperative period Surgical Procedures FT Entry 1 Entry 2 Entry 3 Procedure Description Procedure CYSTOSCOPY RETROGRADE CYSTOSCOPY TURB CYSTOSCOPY URETEROSCOPY PYELOGRAM Modifiers Right Right Right Surgeon Description CYSTOSCOPY, TURBT CYSTOSCOPY, TURBT CYST, RIGHT RETROGRADE, RIGHT URETEROSCOPY, TURBY, POSSIBLE RIGHT STENT PLACEMENT Primary Procedure Yes No No Primary Surgeon JACK BLOCK, Sonny SANTIAGO MD, Sonny SANTIAGO MD, Sonny Aguilar Start 09/27/23 13:22:00 09/27/23 13:22:00 09/27/23 13:22:00 Stop 09/27/23 16:45:00 09/27/23 16:45:00 09/27/23 16:45:00 Anesthesia Type General General General Surgical Service Urology Urology Urology Wound Class 2 - Clean-Contaminated 2 - Clean-Contaminated 2 - Clean-Contaminated Last Modified By: Mana Pyle Ii, Alfons Ii F Letrondo, Alfons Ii F 09/27/23 17:06:59 09/27/23 17:07:03 09/27/23 16:59:24 Entry 4 Procedure Description Procedure CYSTOSCOPY STENT INSERTION Modifiers Rig (more content not included)... Normal [facility] Main OR PACU I Recordon 09-13 Main OR PACU I Record PACU Phase I Docum ent Type FT Summary Primary Physician: Sonny SANTIAGO MD Finalized Date/Time: 09/28/23 18:38:28 Pt. Name: INDRA OLIVAREZ /Sex: 1970 Male Med Rec #: [id number] Physician: Sonny SANTIAGO MD Financial #: [id number] Pt. Type: A Room/Bed: [place] [address] Admit/Disch: 09/27/23 11:38:34 - Institution: Case Times PACU I FT Pre-Care Text: Identifies barriers to communication and implements measures to provide psychological support Develops individualized plan of care, and ensures continuity of care Maintains patient's dignity and privacy, and maintains patient confidentiality Identifies and reports philosophical, cultural, and spiritual beliefs and values Identifies individual values and wishes concerning care Implements aseptic technique, and administers prescribed antibiotic therapy and immunizing agents as ordered Evaluates postoperative tissue perfusion Implements thermoregulation measures, and monitors body temperature Evaluates postoperative respiratory status Evaluates postoperative cardiac status Evaluates postoperative neurological status Assesses pain control, collaborated in initiating patient-controlled analgesia and implements alternative methods of pain control Verifies allergies, administers prescribed medications and solutions, evaluates response to medications Entry 1 In PACU I 09/28/23 17:37:00 Discharge from PACU 09/28/23 18:07:00 I Outcomes Met? Yes Last Modified By: Andreea Sxaena RN 09/28/23 18:38:15 Post-Care Text: The patient demonstrates knowledge of the expected response to the operative or invasive procedure The patient's care is consistent with the individualized perioperative plan of care The patient's right to privacy is maintained The patient's value system, lifestyle, ethnicity, and culture are considered, respected, and incorporated into the perioperative plan of care The patient participates in decisions affecting his or her perioperative plan of care The patient is free from signs and symptoms of infection The patient has wound/tissue perfusion consistent with or improved from baseline levels established preoperatively The patient is at or returning to normothermia at the conclusion of the immediate postoperative period The patient's respiratory function is consistent with or improved from baseline levels established preoperatively The patient's cardiovascular status is consistent with or improved from baseline levels established preoperatively The patient's cardiovascular status is consistent with or improved from baseline levels established preoperatively The patient demonstrates and/or reports adequate pain control throughout the perioperative period The patient received appropriate medication(s), safely administered during the perioperative period Acuity Level PACU I FT Entry 1 Start Time 09/28/23 17:37:00 Stop Time 09/28/23 18:07:00 Acuity Level Acuity Level I Last Modified By: Andreea Saxena RN 09/28/23 18:38:27 Finalized By: Andreea Saxena RN Document Signatures Signed By: Andreea Saxena RN 09/28/23 18:38 Normal [facility] Monitor Recordon 09-28-2023 Monitor Record [id number] Normal [facility] Operative Reporton Operative Report Patient: INDRA OLIVAREZ Age: 53 years Sex: Male : 1970 Associated Diagnoses: None Author: Sonny SANTIAGO MD Postoperative Information Procedure: 1. Cystoscopy. 2. Transurethral resection of bladder tumor greater than 6 cm. Date/ Time: 09/28/2023 17:34:00 Preoperative Diagnosis: Bladder tumors; gross hematuria. Postoperative Diagnosis: same. Procedure: Anesthesia Method: General. Performed by: Sonny Santiago MD. Findings: Bladder tumors greater than 6 cm and gross hematuria. Specimens Removed: Bladder tumors. Prosthesis: 20 Ug[place]an three-way Hager catheter in the bladder to a leg bag. . Estimated Blood Loss: 20 ml. Orders Complications: None. Notes: Indications: This gentleman had an enormous bladder tumor obliterating his right UO and causing hydroureteronephrosis. Yesterday, nearly 70% of the tumor was removed. The procedure was stopped after an hour and a half of constant resection. Overnight he had gross hematuria and some clots. He now presents for repeat cystoscopy TURBT clot evacuation and fulguration. He has signed an informed consent after all risks were explained. Procedure: Patient was brought to the operating room and placed on the operating room table in the supine position. SCDs were placed on his lower extremities and turned on and functioning during the entire case. Timeout was done by all parties in the room. We all agreed upon the patient's identification and the planned procedures for this patient. General endotracheal anesthesia was then administered with paralysis. He was then repositioned into the modified dorsal lithotomy position. All pressure points were satisfactorily padded. Genitalia were sterilely prepped and draped in the usual fashion. I started by passing a 26 [place] Olympus resectoscope with a standard bipolar loop electrode per urethra and into the bladder. The clots were evacuated with the Ilich evacuator. I then was able to identify the left UO. This was marked with the loop electrode. I then began uniformly and deeply resecting tumor on the floor of the bladder from the right hemitrigone region, on the floor towards the back wall and up the right sided bladder neck. The tumor also extended lateral to the right hemitrigone. The tumor was very indurated and necrosis was included as it invaded deeply in the wall of the bladder. A ureteral orifice was never identified; it was simply obliterated. I was able to resect all of the remaining tumor. The resection bed was coagulated with the loop electrode and with a button electrode. The Ilich evacuator was used several times to get all the pieces of bladder tumor out and these were sent for permanent sections. Upon completion I found no evidence of any other tumors in the bladder. The left UO was effluxing clear urine. There was no bleeding remaining. There were no pieces remaining. The scope was then removed. I then placed a 20 [place]an three-way coud? Hager in the bladder. It was manually irrigated with a Sid syringe. 20 cc of fluid was placed in the balloon. It was attached to a leg bag. It drained clear. The anesthetic was then reversed. He was then transferred to a rstamford bed and wheeled to PACU in stable condition.. Normal [facility] Comment on above: Result Comment: Elec tronically Signed By: JACK BLOCK, Sonny Mejía.rupesh\Date and Time Signed: 09/28/23 17:41 EST Patient Education - Texton 0 09-28-2023 Patient Education - Text Normal [facility] Physician Orderon 09-28-2023 Physician Order [id number]#[id number] [facility] Preoperative Documentson Preoperative Documents [id number]#[id number] [facility] Progress Note-Physicianon Progress Note-Physician Confirmed with urology on-call that patient okay to go home. I did personally see and examine patient. He is doing well. Patient has no focal complaints. Patient a leg bag in place. Patient has prescription sent to local [facility] and has a follow-up appointment with Dr. Santiago. [facility] Comment on above: Result Comment: Elec tronically Signed By: Chelo FALL DO.br\Date and Time Signed: 09/28/23 20:50 EST Progress Note-Physician Patient: INDRA OLIVAREZ Age: 53 years Sex: Male : 1970 Associated Diagnoses: None Author: Neil Zimmer Jr, DO Preoperative Information Anesthesia Preop Info: Time patient last ate or drank 09/27/2023 00:00:00. Anesthesia history: Patient history: None. Family history+: None. Informed consent: Signed by patient. Re-evaluation prior to induction: Initial evaluation reviewed: No significant change. Review of Systems Eye: Negative except as documented in history of present illness. Ear/Nose/Mouth/Throat: Negative except as documented in history of present illness. Respiratory: Negative except as documented in history of present illness. Cardiovascular: Negative except as documented in history of present illness. Musculoskeletal: Negative except as documented in history of present illness. Neurologic: Negative except as documented in history of present illness. 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 Social History Social & Psychosocial Habits Tobacco 09/18/2023 Tobacco Use: Former smoker, quit more Smokeless tobacco use: Smokeless tobacco user wi Type: Cigarettes, Oral Smoking Cessation Yes . Physical Examination Airway: Mallampati classification: II (soft palate, fauces, uvula visible). Respiratory: adequate air exchange. Cardiovascular: Regular rhythm. Plan [place] [employer]esthesi[employer] (ASA) physical status classification: Class II. Anesthetic Preoperative Plan: Anesthesia General. [facility] Comment on above: Result Comment: Elec tronically Signed By: Neil Zimmer Jr, DO\.br\Date and Time Signed: 09/28/23 15:53 EST Progress Note-Physician Patient: INDRA OLIVAREZ Age: 53 years Sex: Male : 1970 Associated Diagnoses: None Author: Neil Zimmer Jr, DO Postoperative Information Postoperative disposition: Postoperative disposition: To PACU. Optimetrix number: Optimetrix number [id number]. Anesthetic utilized: General. Health Status Allergies: Allergic Reactions (Selected) No Known Medication Allergies Physical Examination Vital Signs 09/28/2023 6:02 EST Hourly Rounding Yes Promise to Return Yes 09/28/2023 5:23 EST Hourly Rounding Yes Promise to Return Yes 09/28/2023 4:43 EST Temperature Oral 36.5 DegC Heart Rate Monitored 53 bpm LOW Respiratory Rate 16 br/min Systolic Blood Pressure 117 mmHg Diastolic Blood Pressure 73 mmHg Blood Pressure Location Right arm Mean Arterial Pressure, Cuff 88 mmHg SpO2 98 % 09/28/2023 4:23 EST Hourly Rounding Yes Promise to Return Yes 09/28/2023 3:26 EST Hourly Rounding Yes Promise to Return Yes 09/28/2023 2:04 EST Hourly Rounding Yes Promise to Return Yes 09/28/2023 1:15 EST Hourly Rounding Yes Promise to Return Yes 09/28/2023 0:39 EST Hourly Rounding Yes Promise to Return Yes 09/27/2023 23:26 EST Temperature Temporal Artery 36.6 DegC Heart Rate Monitored 72 bpm Respiratory Rate 16 br/min Systolic Blood Pressure 123 mmHg Diastolic Blood Pressure 81 mmHg Blood Pressure Location Right arm Mean Arterial Pressure, Cuff 95 mmHg SpO2 97 % 09/27/2023 23:24 EST Hourly Rounding Yes Promise to Return Yes 09/27/2023 22:00 EST Hourly Rounding Yes Promise to Return Yes 09/27/2023 21:02 EST Hourly Rounding Yes Promise to Return Yes 09/27/2023 20:00 EST Hourly Rounding Yes Promise to Return Yes 09/27/2023 18:08 EST Heart Rate Monitored 65 bpm SpO2 97 % 09/27/2023 18:08 EST Systolic Blood Pressure 131 mmHg Diastolic Blood Pressure 90 mmHg HI Mean Arterial Pressure, Monitered 104 mmHg 09/27/2023 18:08 EST Temperature Temporal Artery 36.3 DegC 09/27/2023 18:07 EST Respiratory Rate 18 br/min 09/27/2023 17:34 EST Heart Rate Monitored 66 bpm SpO2 98 % 09/27/2023 17:34 EST Systolic Blood Pressure 161 mmHg HI Diastolic Blood Pressure 96 mmHg HI Mean Arterial Pressure, Monitered 118 mmHg 09/27/2023 17:34 EST Respiratory Rate 16 br/min 09/27/2023 17:34 EST Temperature Temporal Artery 36.6 DegC 09/27/2023 17:25 EST Temperature Temporal Artery 36.3 DegC (Modified) Heart Rate Monitored 70 bpm Respiratory Rate Monitored 21 br/min Systolic Blood Pressure 138 mmHg Diastolic Blood Pressure 97 mmHg HI Mean Arterial Pressure, Cuff 111 mmHg SpO2 100 % Pain Assessment: Controlled. General: Awake, Alert, Appropriate. Respiratory: Adequate air exchange. Cardiovascular: Stable, Normal peripheral perfusion. Neurological: Normal sensory function, Normal motor function. Assessment Anesthetic outcome No anesthetic complications noted. Adequate pain relief. able to void without difficulty, able to ambulate with assist, tolerating PO intake, no N/V. Review / Management Condition: Stable. Plan Transfer/Discharge: Transfer/Discharge Discharge when meets criteria ( To home ). Normal [facility] Comment on above: Result Comment: Elec tronically Signed By: Neil Zimmer Jr, DO\.rupesh\Date and Time Signed: 09/28/23 15:51 EST Progress Note-Physician Assessment/Plan 1. Bladder mass (N32.89: Other specified disorders of bladder) S/p transurethral resection of bladder tumor 2/2 massive bladder tumor volume obliterating the right hemitrigone performed and managed by Dr. Santiago -Trend labs -Pain mgt. -Education: Oral pain med regimen, I.S. and bowel regimen to avoid constipation Thank you for the opportunity to assist in the mgt. of your patient 2. Elevated serum creatinine (R79.89: Other specified abnormal findings of blood chemistry) Baseline Cr - unknown baseline -Hold LEWIS/ARB, PPI, -UA - pending -Renal US & PVR - if Cr worsens -Consult nephrology - if Cr worsens -IVF 1L to date -Trend BMP -Avoid nephrotoxic medications as much as possible 3. Depression (F32.A: Depression, unspecified) Stable, denies SI/HI -Mirtazapine 4. On deep vein thrombosis (DVT) prophylaxis (Z79.899: Other terminal operations supervisor (current) drug therapy) Defer to urology -SCDs, early ambulation Orders: cephalexin, 500 mg = 1 cap(s), Cap, Oral, q12hr, Routine, Start date 09/28/23 8:00:00 EST, 09/28/23 7:34:00 EST Basic Metabolic Panel Below the Knee Intermittent Pneumatic Compression Device CBC w/ Auto Diff eGFR UA With Cult Reflex -Plan discussed w/ patient, nursing staff and CRM. This report was transcribed using voice recognition software. Every effort was made to ensure accuracy, however, inadvertently computerized photographer's assistant mistakes may be present. Subjective No acute events overnight. Patient denies CP, pressure, palpitations, N/V, SOB or paresthesia. Review of Systems -Last BM: 09/27 Additional ROS info: Except as noted in the above Review of Systems and in the History of Present Illness all other systems have been reviewed and are negative or noncontributory Objective Vitals & Measurements T: 36.4 ?C(Oral) TMIN: 36.2 ?C(Temporal Artery) TMAX: 36.6 ?C(Temporal Artery) HR: 65(Monitored) RR: 16 BP: 130/83 SpO2: 98% WT: 80.8 kg Intake & Output This visit (24 hour periods starting at 07:00 EST) 09/28/23 * 09/27/23 09/26/23 Total Summary Intake mL -- 1,880.01 -- Output mL 1,550 11,550 -- Fluid Balance -1,550 -9,669.99 -- Intake (14) Dextrose 5% in Water, levofloxacin mL -- 100 -- Lactated Ringers Injection mL -- 800 -- Lactated Ringers Injection 1,000 mL mL -- 50 -- Oral Intake mL -- 740 -- Sodium Chloride 0.9%, cefazolin mL -- 50 -- acetaminophen mL -- 100 -- dexamethasone mL -- 1 -- fentanyl mL -- 2 -- lidocaine mL -- 3 -- ondansetron mL -- 2 -- phenylephrine mL -- 0.01 -- propofol mL -- 20 -- rocuronium mL -- 10 -- sugammadex mL -- 2 -- Total -- 1,880.01 -- Output (4) EBL Surgery mL -- 50 -- Other Output mL -- 2,000 -- Urine Catheter mL 1,550 4,000 -- Urine Voided mL -- 5,500 -- Total 1,550 11,550 -- Counts (0) * This column has not completed the indicated time period. Physical Exam General: Calm, able to communicate needs, NAD Head: Normocephalic/atraumatic Eyes: Pupils equal, round. Conjunctivae and sclerae normal, HEENT: Mucous membrane moist. Tongue normal Neck: Trachea midline, neck supple, Chest: No chest wall deformity, no chest wall tenderness Lungs: CTA rodríguez Cardio: Normal rate, apical is regular, no edema. Pulses: Normal capillary refill Abdomen: Soft, non-distended, non-tender, normal BS Musculoskeletal: No deformity or scoliosis noted. Normal ROM for age. Integumentary: Warm, dry, Extremity: No clubbing, Neurologic: Alert, oriented x 4, follows commands, Mental status: Pleasant & cooperative, approp. affect, Lab Results WBC: 15.3 E9/L High (09/28/23 07:55:00) RBC: 4.9 E12/L (09/28/23 07:55:00) HGB: 15.6 gm/dL (09/28/23 07:55:00) Hct: 47 % (09/28/23 07:55:00) MCV: 94.7 fL (09/28/23 07:55:00) MCH: 31.6 pg (09/28/23 07:55:00) MCHC: 33.4 gm/dL (09/28/23 07:55:00) RDW: 13.7 % (09/28/23 07:55:00) Platelet: 268 E9/L (09/28/23 07:55:00) MPV: 8.9 fL (09/28/23 07:55:00) Neutro Auto: 88.3 % High (09/28/23 07:55:00) Lymph Auto: 7.8 % Low (09/28/23 07:55:00) Massac Auto: 3.7 % Low (09/28/23 07:55:00) Eos Auto: 0 % (09/28/23 07:55:00) Basophil Auto: 0.2 % (09/28/23 07:55:00) Neutro Absolute: 13.5 E9/L High (09/28/23 07:55:00) Lymph Absolute: 1.2 E9/L (09/28/23 07:55:00) [place] Absolute: 0.6 E9/L (09/28/23 07:55:00) Eos Absolute: 0 E9/L (09/28/23 07:55:00) Basophil Absolute: 0 E9/L (09/28/23 07:55:00) Glucose Lvl: 128 mg/dL (09/28/23 07:55:00) BUN: 16 mg/dL (09/28/23 07:55:00) Creatinine: 1.5 mg/dL High (09/28/23 07:55:00) eGFR: 56 mL/min/1.73 m2 Low (09/28/23 07:55:00) BUN/Creat Ratio: 11 (09/28/23 07:55:00) Sodium Lvl: 137 mmol/L (09/28/23 07:55:00) Potassium Lvl: 4.4 mmol/L (09/28/23 07:55:00) Chloride: 102 mmol/L (09/28/23 07:55:00) CO2: 26 mmol/L (09/28/23 07:55:00) AGAP: 13 mEq/L (09/28/23 07:55:0 (more content not included)... Normal [facility] Comment on above: Result Comment: Elec tronically Signed By: Caroline ZULUAGA\.br\Date and Time Signed: 09/28/23 14:23 EST\.br\Electronically Co-Signed By: Joe Jaeger DO\.br\Date and Time Co-Signed: 09/28/23 15:26 EST eGFRon 02-16-2024 eGFR 56 mL/min/1.73 m2 Low >=59 [facility] Comment on above: Order Comment: Order added by Discern Expert. Performed By: #### 1 [id number] ####[facility] [address] [place] [address] Consent for Procedure/Surger yon 09-27-2023 Consent for Procedure/Surgery [id number]#1.00TIFF Normal [facility] Consent for Treatmenton 09-13 Consent for Treatment [id number]#1.00TIFF Normal [facility] H&P Updateon 09-27-2023 H&P Update [id number]#1.00TIFF Normal [facility] Insurance Correspondenceon 0 09-27-2023 Insurance Correspondence [id number]#1.00TIFF [facility] Main OR PACU I Recordon 09-13 Main OR PACU I Record PACU Phase I Docum ent Type FT Summary Primary Physician: Sonny SANTIAGO MD Finalized Date/Time: 09/27/23 18:42:58 Pt. Name: SHERINDRA/Sex: 1970 Male Med Rec #: [id number] Physician: Sonny SANTIAGO MD Financial #: [id number] Pt. Type: A Room/Bed: Admit/Disch: 09/27/23 11:38:34 - Institution: Case Times PACU I FT Pre-Care Text: Identifies barriers to communication and implements measures to provide psychological support Develops individualized plan of care, and ensures continuity of care Maintains patient's dignity and privacy, and maintains patient confidentiality Identifies and reports philosophical, cultural, and spiritual beliefs and values Identifies individual values and wishes concerning care Implements aseptic technique, and administers prescribed antibiotic therapy and immunizing agents as ordered Evaluates postoperative tissue perfusion Implements thermoregulation measures, and monitors body temperature Evaluates postoperative respiratory status Evaluates postoperative cardiac status Evaluates postoperative neurological status Assesses pain control, collaborated in initiating patient-controlled analgesia and implements alternative methods of pain control Verifies allergies, administers prescribed medications and solutions, evaluates response to medications Entry 1 In PACU I 09/27/23 16:55:00 Discharge from PACU 09/27/23 17:30:00 I Outcomes Met? Yes Last Modified By: Gina Ac RN 09/27/23 18:42:48 Post-Care Text: The patient demonstrates knowledge of the expected response to the operative or invasive procedure The patient's care is consistent with the individualized perioperative plan of care The patient's right to privacy is maintained The patient's value system, lifestyle, ethnicity, and culture are considered, respected, and incorporated into the perioperative plan of care The patient participates in decisions affecting his or her perioperative plan of care The patient is free from signs and symptoms of infection The patient has wound/tissue perfusion consistent with or improved from baseline levels established preoperatively The patient is at or returning to normothermia at the conclusion of the immediate postoperative period The patient's respiratory function is consistent with or improved from baseline levels established preoperatively The patient's cardiovascular status is consistent with or improved from baseline levels established preoperatively The patient's cardiovascular status is consistent with or improved from baseline levels established preoperatively The patient demonstrates and/or reports adequate pain control throughout the perioperative period The patient received appropriate medication(s), safely administered during the perioperative period Acuity Level PACU I FT Entry 1 Start Time 09/27/23 16:55:00 Stop Time 09/27/23 17:30:00 Acuity Level Acuity Level I Last Modified By: Gina Ac RN 09/27/23 18:42:55 Finalized By: Gina Ac RN Document Signatures Signed By: Gina Ac RN 09/27/23 18:42 Normal [facility] Main OR Preoperative Recordo n 09-27-2023 Main OR Preoperative Record PreOp Document Type FT Summary Primary Physician: Sonny SANTIAGO MD Finalized Date/Time: 09/27/23 15:10:52 Pt. Name: SHERINDRA./Sex: 1970 Male Med Rec #: [id number] Physician: Sonny SANTIAGO MD Financial #: [id number] Pt. Type: A Room/Bed: AS01/ Admit/Disch: 09/27/23 11:38:34 - Institution: Case Times PreOp FT Pre-Care Text: Verifies consent for planned procedure, identifies individual values and wishes concerning care, includes family members in perioperative teaching Entry 1 Patient Times. In Pre Surgery 09/27/23 11:45:00 Out Pre Surgery 09/27/23 14:47:00 Outcomes Met? Yes Last Modified By: Mana Pyle Ii 09/27/23 15:10:51 Post-Care Text: The patient participates in decisions affecting his or her perioperative plan of care Finalized By: Mana Pyle Ii Document Signatures Signed By: Mana Pyle Ii 09/27/23 13:25 Mana Pyle Ii 09/27/23 15:10 Normal [facility] Monitor Recordon 09-27-2023 Monitor Record [id number]#1.00TIFF Normal [facility] Monitor Record [id number]#1.00TIFF Normal [facility] Operative Reporton Operative Report Patient: INDRA OLIVAREZ Age: 53 years Sex: Male : 1970 Associated Diagnoses: None Author: Sonny SANTIAGO MD Postoperative Information Procedure: 1. Cystoscopy. 2. Transurethral resection of bladder tumor much greater than 6 cm Date/ Time: 09/27/2023 16:52:00 Preoperative Diagnosis: Bladder tumors and right hydroureteronephrosis. Postoperative Diagnosis: same. Procedure: Anesthesia Method: General. Performed by: Sonny Santiago MD. Findings: Massive bladder tumor volume obliterating the right hemitrigone.. Specimens Removed: Copious amounts of bladder tumors. Prosthesis: 22 Ugandan three-way coud? Hager in the bladder to CBI. . Estimated Blood Loss: 30 ml. Orders Complications: None. Notes: Indications: This gentleman has a large bladder tumor much greater than 6 cm obstructing his right hemitrigone and causing hydroureteronephrosis. He has had this tumor for at least 6 to 12 months. He now presents for cystoscopy and transurethral resection of bladder tumors and possible ureteroscopy and right stent placement. He has signed an informed consent after all risks were explained. Procedure: The patient was brought to the operating room and placed on the operating room table in the supine position. SCDs were placed on his lower extremities and turned on and functioning during the entire case. Timeout was done by all parties in the room. We all agreed upon the patient's identification and the planned procedures for this patient. General endotracheal anesthesia was then administered. He was then repositioned into the modified dorsal lithotomy position. All pressure points were satisfactorily padded. Genitalia were sterilely prepped and draped in the usual fashion. 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 I was able to get the scope beyond this and into the bladder and I could see that at least 60% of the entire bladder volume was occupied by bladder tumor. I started uniformly resecting the tumor down and debulking. The more I resected the more that came into view because it was compressed cephalad and laterally to the right and the left. I continued resecting for over 1-1/2 hours. I could never see the right hemitrigone or the ureter. The Ilich evacuator was used numerous times to get all the tumor pieces out and these were sent for permanent sections. A rollerball electrode was used to maintain hemostasis. I then resected all the tumor that was within the bladder neck and prostatic urethra obstructing the channel. I did not have to resect any prostate itself. After resecting for over an hour and a half I elected to stop the procedure for safety purposes. 100% of the tumor was not resected. This will definitely be enough to get pathology. He will most likely require a cystectomy for definitive management. After hemostasis was obtained and all pieces were removed I then removed the scope. I then placed a 22 Ugandan three-way coud? Hager in the bladder and put 30 cc of fluid in the balloon. I manually irrigated it with a Sid syringe and it was pink. I then started CBI and it was clear. The anesthetic was then reversed. He was then [facility] and wheeled to PACU in stable condition.. Anesthesia type: General. Normal [facility] Comment on above: Result Comment: Elec tronically Signed By: JACK BLOCK, Sonny Garrett\Date and Time Signed: 09/27/23 17:02 EST Outside Recordson 09-27-2023 Outside Records [id number]#1.00TIFF Normal [facility] ECG 12-Leadon 09-24-2023 ECG 12-Lead [id number]#1.00TIFF Normal [facility] Lab Reportson 09-21-2023 Lab Reports [id number]#1.00TIFF [facility] RAD - MISCon 09-21-2023 RAD - MISC [id number]#1.00TIFF [facility] Consent for Procedure/Surger yon 09-19-2023 Consent for Procedure/Surgery [id number]#1.00TIFF [facility] Formson 09-19-2023 Forms [id number]#1.00TIFF [facility] Lab Reportson 09-19-2023 Lab Reports [id number]#1.00TIFF [facility] RAD - CT Reporton 09-19-2023 RAD - CT Report [id number]#1.00TIFF [facility] RAD - Ultrasound Reporton RAD - Ultrasound Report [id number]#1.00TIFF [facility] Screenson 09-19-2023 Screens [id number]#1.00TIFF [facility] Ambulatory Visit Summaryon 0 09-18-2023 Ambulatory Visit Summary INDRA OLIVAREZ :1970 Visit Date:09/18/2023 Ambulatory Visit Instructions Your Diagnosis Bladder mass Hydronephrosis Incomplete bladder emptying Gross hematuria Former smoker 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 Discharge Vitals Heart Rate (Peripheral) 85 Blood Pressure 137/92 Height 178 cm Height 70 in Weight 82.7 kg Weight 181.94 lb BMI 26.1 What to do next Scheduled Follow-Up Appointments Sunday 9:45 AM EST With: Sonny SANTIAGO MD Where: [facility] Patient Educationon 09-18-19 24 Patient Education Urology [...] Follow these instructions at home: ? Take eeyw-hio-kcbwote and prescription medicines only as told by [...] Reviewed: 11/16/2020 Elsevier Patient Education ? 2022 Xormis. Normal [facility] Provider Letteron 09-18-2023 Provider Letter (Inserted Image. Ashly ble to display) September 18, 2023 INDRA [facility] [address] [place] [address] : 1970 To Whom It May Concern, Please excuse above patient from work. Date of Illness: From: 09/18/[address] Santiago 09/20/23 -Presurgery testing appointment at [facility] 09/27/23- Surgery at [facility] 10/08/23- Follow up appointment after surgery To: to be determined May Return to Work On: 09/19/23 Restrictions: N/A Comments: Patient is having a surgical procedure with Dr. Santiago on 09/27/23 at the [facility] to remove a bladder mass. Please excuse him for the required testing and appointments. Sincerely, [facility] Dr. Sonny Santiago [facility] Urology Office/Clinic Noteon 09-18-2023 Urology Office/Clinic Note HPI Staff Burrell is a 53 y.o. male new patient here for bladder mass w/ hydronephrosis. Referred by Dr. Whitfield. CT abd/p done on 09/15/23 showed 5.3x4.7cm [...] had p (more content not included)... Normal [facility] Comment on above: Result Comment: Elec tronically Signed By: Sonny SANTIAGO MD\.br\Date and Time Signed: 09/18/23 09:40 EST\.br\Electronically Co-Signed By: Angle Rivas.br\Date and Time Co-Signed: 09/18/23 09:37 EST Vital Signs Date Time Vital Sign Value Performing Clinician Facility 11-05-2023 09: Body height 174.5 cm Vicente Sanchez MD Work Phone: [facility] 11-05-2023 09:03-0400 Body temperature 97.2 [degF] Vicente Sanchez MD Work Phone: [facility] 11-05-2023 09:03-0400 Body weight 89.2 kg Vicente Sanchez MD Work Phone: [facility] 11-05-2023 09:03-0400 Diastolic blood pressure 67 mm[Hg] Vicente Sanchez MD Work Phone: [facility] 11-05-2023 09:03-0400 Heart rate 114 /min Vicente Sanchez MD Work Phone: [facility] 11-05-2023 09:03-0400 Respiratory rate 18 /min Vicente Sanchez MD Work Phone: [facility] 11-05-2023 09:03-0400 SaO2% (BldA) [Mass fraction] 98 % Vicente Sanchez MD Work Phone: [facility] 11-05-2023 09:03-0400 Systolic blood pressure 140 mm[Hg] Vicente Sanchez MD Work Phone: [facility] 10-23-2023 16:05-0400 Body height 177.8 cm Vicente Sanchez MD Work Phone: [facility] 10-23-2023 16:05-0400 Body temperature 97.11 [degF] Vicente Sanchez MD Work Phone: [facility] 10-23-2023 16:05-0400 Body weight 85.8 kg Vicente Sanchez MD Work Phone: [facility] 10-23-2023 16:05-0400 Diastolic blood pressure 82 mm[Hg] Vicente Sanchez MD Work Phone: [facility] 10-23-2023 16:05-0400 Heart rate 107 /min Vicente Sanchez MD Work Phone: [facility] 10-23-2023 16:05-0400 Respiratory rate 18 /min Vicente Sanchez MD Work Phone: [facility] 10-23-2023 16:05-0400 SaO2% (BldA) [Mass fraction] 99 % Vicente Sanchez MD Work Phone: [facility] 10-23-2023 16:05-0400 Systolic blood pressure 139 mm[Hg] Vicente Sanchez MD Work Phone: [facility] 10-16-2023 08:15-0500 Body temperature 98.8 [degF] Venkatesh Small MD Work Phone: [facility] 10-16-2023 08:15-0500 Body weight 84.5 kg Venkatesh Small MD Work Phone: [facility] 10-16-2023 08:15-0500 Diastolic blood pressure 86 mm[Hg] Venkatesh Small MD Work Phone: [facility] 10-16-2023 08:15-0500 Heart rate 118 /min Venkatesh Small MD Work Phone: [facility] 10-16-2023 08:15-0500 SaO2% (BldA) [Mass fraction] 97 % Venkatesh Small MD Work Phone: [facility] 10-16-2023 08:15-0500 Systolic blood pressure 122 mm[Hg] Venkatesh Small MD Work Phone: [facility] 09-28-2023 20:44-0500 Hourly Rounding Sonny SANTIAGO [facility] 09-28-2023 20:44-0500 Promise to Return Sonny SANTIAGO [facility] 09-28-2023 20:00-0500 Diastolic blood pressure 81 mm[Hg] Sonny SANTIAGO [facility] 09-28-2023 20:00-0500 Heart rate 62 /min Sonny SANTIAGO [facility] 09-28-2023 20:00-0500 Systolic blood pressure 123 mm[Hg] Sonnyglendy SANTIAGO [facility] 09-28-2023 19:01-0500 Diastolic blood pressure 80 mm[Hg] Snonyglendy SANTIAGO [facility] 09-28-2023 19:01-0500 Heart rate 66 /min Sonnyglendy SANTIAGO [facility] 09-28-2023 19:01-0500 SaO2% (BldA) [Mass fraction] 98 % Sonnyglendy SANTIAGO [facility] 09-28-2023 19:01-0500 Systolic blood pressure 137 mm[Hg] Sonnyglendy SANTIAGO [facility] 09-28-2023 19:00-0500 Hourly Rounding Sonnyglendy SANTIAGO [facility] 09-28-2023 19:00-0500 Promise to Return Sonnyglendy SANTIAGO [facility] 09-28-2023 18:49-0500 Blood Pressure Location Sonnyglendy SANTIAGO [facility] 09-28-2023 18:49-0500 Body temperature 98.24 [degF] Sonnyglendy SANTIAGO [facility] 09-28-2023 18:49-0500 Diastolic blood pressure 84 mm[Hg] Sonnyglendy SANTIAGO [facility] 09-28-2023 18:49-0500 Heart rate 68 /min Sonnyglendy SANTIAGO [facility] 09-28-2023 18:49-0500 Hourly Rounding Sonnyglendy SANTIAGO [facility] 09-28-2023 18:49-0500 Mean blood pressure 102 mm[Hg] Sonnyglendy SANTIAGO [facility] 09-28-2023 18:49-0500 Systolic blood pressure 137 mm[Hg] Sonnyglendy SANTIAGO [facility] 09-28-2023 18:42-0500 Promise to Return Sonnyglendy SANTIAGO [facility] 09-28-2023 18:04-0500 Body temperature 97.7 [degF] Sonnyglendy SANTIAGO [facility] 09-28-2023 18:04-0500 Mean blood pressure 115 mm[Hg] Sonnyglendy SANTIAGO [facility] 09-28-2023 18:04-0500 Respiratory rate 20 /min Sonnyglendy SANTIAGO [facility] 09-28-2023 17:55-0500 Mean blood pressure 106 mm[Hg] Sonnyglendy SANTIAGO [facility] 09-28-2023 17:55-0500 Respiratory rate 16 /min Sonnyglendy SANTIAGO [facility] 09-28-2023 17:50-0500 Respiratory rate 18 /min Sonnyglendy SANTIAGO [facility] 09-28-2023 17:37-0500 Blood Pressure Location Sonnyglendy SANTIAGO [facility] 09-28-2023 15:04-0500 Respiratory rate 18 /min Sonnyglendy SANTIAGO [facility] 09-28-2023 15:04-0500 Mean blood pressure 93 mm[Hg] Sonnyglendy SANTIAGO [facility] 09-28-2023 11:16-0500 Mean blood pressure 99 mm[Hg] Sonny SANTIAGO [facility] 09-28-2023 08:11-0500 Body temperature 97.52 [degF] Sonnyglendy SANTIAGO [facility] 09-28-2023 08:11-0500 Mean blood pressure 91 mm[Hg] Sonny SANTIAGO [facility] 09-28-2023 04:43-0500 Blood Pressure Location Sonny SANTIAGO [facility] 09-28-2023 04:43-0500 Body temperature 97.7 [degF] Sonny SANTIAGO [facility] 09-28-2023 04:43-0500 Respiratory rate 16 /min Sonny SANTIAGO [facility] 09-27-2023 23:26-0500 Respiratory rate 16 /min Sonny SANTIAGO [facility] 09-27-2023 16:50-0500 FIO2 100 1 Sonny SANTIAGO [facility] 09-27-2023 16:45-0500 FIO2 100 1 Sonny SANTIAGO [facility] 09-27-2023 16:40-0500 FIO2 60 1 Sonny SANTIAGO [facility] Encounters Encounter Date Encounter Type Care Provider Facility Start: 11-12-2023 Chart abstracting Loree brooks RN Work Phone: Hematology/Oncology Comment on above: Research (IRB [phone] [id number] Informed Consent) Start: 11-12-2023 Telephone encounter [address]elida Donaldson RD Work Phone: Nutrition Therapy Comment on above: ONS Care Coordination (P t Question) Start: 11-12-2023 End: 11-12-2023 ambulatory VICENTE SANCHEZ Facility:[facility] Start: 11-12-2023 End: 11-12-2023 ambulatory Chair Meagan Gallardo Work Phone: Hematology/Oncology Comment on above: 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) Start: 11-05-2023 End: 11-05-2023 Nutrition therapy Nelida Donaldson RD Work Phone: Nutrition Therapy Comment on above: Nutrition Assessment Start: 11-05-2023 End: 11-05-[address] Work Phone: [facility] Comment on above: 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); Other hydronephrosis 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) Start: 11-05-2023 End: 11-05-2023 Patient encounter procedure Vicente Sanchez MD Work Phone: [facility] Start: 11-02-2023 End: 11-03-2023 ambulatory Rosi Myers APRN.AQUACULTURE AND FISHERIES PROFESSOR Work Phone: [facility] Provider Adult Comment on above: Nephroureteral [facility] ter Care Start: 11-02-2023 E-mail encounter fro m caregiver Rosi Myers APRN.AQUACULTURE AND FISHERIES PROFESSOR Work Phone: [facility] Start: 10-29-2023 End: 10-29-2023 ambulatory Italia Springer RN Work Phone: Hematology/Oncology Comment on above: First Time Treatment Education (Gemcitabine & Cisplatin) Start: 10-29-2023 Telephone encounter Italia chaudhry RN Work Phone: Hematology/Oncology Comment on above: Care Coordination (N utritional Consult) Start: 10-26-2023 Telephone encounter Tiffanie Velez RN [facility] Comment on above: Radiology Pre Proced ure Instructions Start: 10-25-2023 Orders Only Tiffanie Velez RN [facility] Comment on above: Hydronephrosis, unsp ecified hydronephrosis type (Primary Dx) Start: 10-24-2023 Telephone encounter Venkatesh Garcia si, MD Work Phone: Urology Comment on above: Results Care Coordination (A ntiemetics) Start: 10-23-2023 End: 10-23-2023 ambulatory Vicente Sanchez MD Work Phone: Hematology/Oncology Comment on above: 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); Other hydronephrosis Start: 10-23-2023 End: 10-23-2023 Patient encounter procedure Vicente Sanchez MD Work Phone: [facility] Start: 10-16-2023 End: 10-16-2023 ambulatory VENKATESH SMALL Facility:[facility] Start: 10-16-2023 End: 10-16-2023 Patient encounter procedure Venkatesh Small MD Work Phone: Urology Comment on above: Malignant neoplasm o f urinary bladder, unspecified site (HCC) (Primary Dx) Start: 10-08-2023 End: 10-09-2023 ambulatory Sonny SANTIAGO Facility:[facility] Start: 09-27-2023 End: 09-28-2023 ambulatory Sonny SANTIAGO Facility:[facility] Start: 09-27-2023 End: 09-28-2023 Admission to same day surgery center Sonny SANTIAGO [facility] Start: 09-18-2023 End: 09-19-2023 ambulatory Sonny SANTIAGO Facility: [facility] Start: 09-17-2023 ambulatory Sonny SANTIAGO Facility : [facility] Start: 06-28-[address] SAYRA WHITFIELD Facility : Procedures Date Procedure Procedure Detail Performing Clinician Start: 09-28-2023 Transurethral cystoscopy Sonny SANTIAGO Start: 09-27-2023 Transurethral cystoscopy Sonny SANTIAGO Colonoscopy Sonny SANTIAGO Excision Sonny SANTIAGO History of hernia repair Anny SANTIAGO Plan of Treatment Date Care Activity Detail Author Start: 11-11-2026 Diabetes Screening Diabetes Screenin g [facility] Start: 11-04-2026 Diabetes Screening Diabetes Screenin g [facility] Start: 10-22-2026 Diabetes Screening Diabetes Screenin g [facility] Start: 04-13-2024 Influenza vaccination Influenz a Vaccine (Season Ended) [facility] Start: 10-30-2023 End: 11-14-2024 CT Chest W contrast IV CT CHEST W IVCON Radiology Routine Malignant neoplasm of urinary bladder, unspecified site (HCC) Expected: 10/30/2023 (Approximate), Expires: 11/14/2024 [facility] Work Phone: Comment on above: Expected: 10/30/2023 (Approximate), Expires: 11/14/2024 Start: 10-30-2023 End: 11-14-2024 CT Kidney WO and W contrast IV CT UROGRAM WO/W IVCON Radiology Routine Malignant neoplasm of urinary bladder, unspecified site (HCC) Expected: 10/30/2023 (Approximate), Expires: 11/14/2024 [facility] Work Phone: Comment on above: Expected: 10/30/2023 (Approximate), Expires: 11/14/2024 Start: 10-25-2023 End: 01-24-2024 PT panel - Platelet poor plasma by Coagulation assay PROTHROMBIN TIME/PT Lab STAT Hydronephrosis, unspecified hydronephrosis type Expected: 10/25/2023, Expires: 01/24/2024 [facility] Work Phone: Comment on above: Expected: 10/25/2023 , Expires: 01/24/2024 Start: 10-16-2023 End: 01-15-2024 CBC panel - Blood by Automated count CBC Lab Routine Malignant neoplasm of urinary bladder, unspecified site (HCC) Expected: 10/16/2023 (Approximate), Expires: 01/15/2024 [facility] Work Phone: Comment on above: Expected: 10/16/2023 (Approximate), Expires: 01/15/2024 Start: 10-16-2023 End: 01-15-2024 Comprehensive metabolic 2000 panel - Serum or Plasma COMP METABOLIC PANEL Lab Routine Malignant neoplasm of urinary bladder, unspecified site (HCC) Expected: 10/16/2023 (Approximate), Expires: 01/15/2024 [facility] Work Phone: Comment on above: Expected: 10/16/2023 (Approximate), Expires: 01/15/2024 Start: 08-13-2023 Depression Assessment Depression Ass essment [facility] Start: 04-13-2023 Covid-19 Vaccine ( season) Covid-19 Vaccine ( season) [facility] Start: 04-13-2023 Influenza vaccination Influenza Vacc ine (#1) [facility] Start: 2021 Shingrix Vaccine (1 of 2) Shingrix Vaccine (1 of 2) [facility] Start: 01-01-2021 Covid-19 Vaccine (3 - Pfizer risk series) Covid-19 Vaccine (3 - Pfizer risk series) [facility] Start: 2016 Diabetes Screening Diabetes Screenin g [facility] Start: 2016 Screening for malign ant neoplasm of colon [facility] Start: 2006 Lipid panel Lipid Screening [facility] Start: 1990 Hepatitis B Vaccine (1 of 3 - 19+ 3-dose series) Hepatitis B Vaccine (1 of 3 - 19+ 3-dose series) [facility] Start: 1990 Shingrix Vaccine (1 of 2) Shingrix Vaccine (1 of 2) [facility] Start: 1990 Urine microalbumin profile DTaP,Tdap,Td Vaccine (1 - Tdap) [facility] Start: 1989 Hepatitis C screening Hepatitis C Sc emily [facility] Start: 1989 HIV screening HIV Screening [facility] Start: 1977 Pneumococcal vaccination Pneumococcal Vaccine (1 of 2 - PCV) [facility] Start: 1971 Hepatitis B Vaccine (1 of 3 - 3-dose series) Hepatitis B Vaccine (1 of 3 - 3-dose series) [facility] Guidance for percutaneous placement of nephrostomy tube of Kidney IR NEPHROSTOMY TUBE PLACE Radiology Routine Hydronephrosis, unspecified hydronephrosis type Ordered: 10/24/2023 [facility] Work Phone: Comment on above: Ordered: 10/24/2023 [facility] Immunizations Immunization Date Immunization Notes Care Provider Apolinar drummond 06-02-2021 influenza virus vaccine, unspecified formulation Sonny SANTIAGO [facility] 12-04-2020 SARS-CoV-2 (COVID-19 ) mRNA BNT-162b2 vax [employer] [facility] Comment on above: Result Comment: 2023: TPV40 11-12-2020 SARS-CoV-2 (COVID-19 ) mRNA BNT-162b2 vax [employer] [facility] Comment on above: Result Comment: 2023: TPV40 NEGATED: Highlighted row has not occurred!09-18-2023 influenza virus vaccine, unspecified formulation [employer] [facility] Payers Date Payer Category Payer Private Health Insurance HUMANA HUMANA MEDICAID [facility] [id number] 2022-Present [address] [address] [place] [address] Medicaid [id number] 2022 Private Health Insurance [id number] 1970 Unknown [id number] 1971 Unknown [id number] 1971 Unknown [id number] 1971 Unknown [id number] 1959 Self-pay [id number] Social History Date Type Detail Facility Start: 09-18-2023 End: 10-23-2023 Tobacco smoking status Ex-smoker (finding) [facility] Tobacco smoking status Smokeless tobacco user within last 30 days [facility] Start: 10-16-2023 End: 11-12-2023 Sex Assigned At Male [facility] Tobacco smoking status NHIS Tobacco smoking consumption unknown [facility] Start: 10-16-2023 End: 11-12-2023 History of Social function [facility] Start: 1970 Sex Assigned At Not on file [facility] History of tobacco use Current smoker [facility] History of tobacco use Cigarette Smoker [facility] Start: 10-23-2023 Tobacco use and exposure Former smokeless tobacco user [facility] Start: 10-23-2023 End: 11-12-2023 Alcohol intake Current drinker of alcohol (finding) [facility] Functional Status Date Assessment Result Facility 09-27-2023 Functional Status No [facility] Clinical Notes 09-27-2023 to 11-12-2023 Telephone Encounter - Italia Springer RN - 11/12/2023 3:30 PM EDTTelephone Encounter - Nelida Donaldson RD - 11/12/2023 12:01 PM Loree Augustin RN - 11/12/2023 10:40 AM EDT Note Date & Type Note Facility 11-12-2023 Miscellaneous Notes Pt states that he's scheduled for an US @ [facility] tomorrow. Notes that on the appointment reminder it instructs for him to drink 24 oz of water and hold it 1 hour before the appointment. Pt states that this will be a problem since he has a nephrostomy tube. Advised pt to reach out to [facility] US for further instructions. Phone number to [facility] provided. Pt verbalizes understanding. No additional questions noted. Italia Springer RN documented in this encounter [facility] 11-12-2023 Note HNO ID: [id number] Author: LOREE FERGUSON, RN Service: ? Author Type: Registered Nurse Type: Progress Notes Filed: 11/12/2023 12:21 Note Text: Summary: IRB 15-0 [id number] Informed Consent CASE 11Z15 (IRB 15): Tissue and Body Fluid Analysis from Patients with Cancer and Other Risk- Associated Lesions Patient seen in clinic for informed consent of the above mentioned protocol. Patient agrees to participate in the above mentioned research study. The patient has signed a copy of the informed consent. Patient has contact information for the study team and Dr. Vicente Sanchez M.D. See consent note in Epic. Discussed previously obtained tissue. Loree Ferguson, MSN, RN Clinical Research Nurse [facility] 11-12-2023 Miscellaneous Notes Notified by outreach and education social worker that financial assessment completed and patient with need for assistance in obtaining ONS. Dietitian assessment previously completed and CMN for determination if Medicaid will cover ONS pending. Patient provided with 12 Boost High Protein courtesy of the [facility] ONS project here at the [facility] to help bridge the gap until insurance determination completed. Patient aware of dietitian follow up on 11/25 to reassess need for ONS and if Medicaid approved. Nelida Donaldson MS, RDN, LD documented in this encounter [facility] 11-12-2023 History of Present illness Narrative Summary: IRB 15-0 [id number] Informed Consent CASE 11Z15 (IRB 15): Tissue and Body Fluid Analysis from Patients with Cancer and Other Risk- Associated Lesions Patient seen in clinic for informed consent of the above mentioned protocol. Patient agrees to participate in the above mentioned research study. The patient has signed a copy of the informed consent. Patient has contact information for the study team and Dr. Vicente Sanchez M.D. See consent note in Epic. Discussed previously obtained tissue. Loree Ferguson, MSN, RN Clinical Research Nurse documented in this encounter [facility] 11-05-2023 Note HNO ID: [id number] Author: DEMETRI DEJESUS RN Service: ? Author Type: Registered Nurse Type: Progress Notes Filed: 11/05/2023 15:10 Note Text: Pt's sister here with him and was anxious about doing his 1st nephrostomy dressing change. Using supplies and instructions given to pt upon discharge I completed the dressing change while instructing pt's sister. [facility] 11-05-2023 History of Present illness Narrative Pt's sister here with him and was anxious about doing his 1st nephrostomy dressing change. Using supplies and instructions given to pt upon discharge I completed the dressing change while instructing pt's sister. documented in this encounter [facility] 11-05-2023 Note Education (NUTRSA) INDRA OLIVAREZ ([id number]) 1970 M [facility] Date Time Provider Department 11/05/23 10:00 AM NELIDA DONALDSON Reason for Visit: Nutrition Assessment [1591] Primary Visit Diagnosis:Malignant neoplasm of trigone of urinary bladder (HCC) [C67.0] During your visit today, we recorded the following information about you: Allergies As of Date: 11/05/2023 (No Known Allergies) Date Reviewed: 11/05/2023 Reviewed by: Nelida Donaldson RD - Fully Assessed Prescriptions as of 11/05/2023 - ondansetron (ZOFRAN) 8 mg tablet Take 1 tablet by mouth every 8 hours as needed for nausea/vomiting. - prochlorperazine (COMPAZINE) 10 mg tablet Take 1 tablet by mouth every 6 hours as needed. - mirtazapine (REMERON) 30 mg tablet Take 30 mg by mouth daily at bedtime. Facility-Administered Medications as of 11/05/2023 - gemcitabine 2,000 mg in NaCl 0.9% 327.6 mL (GEMZAR) - CISplatin 72.8 mg in NaCl 0.9% 1,122.8 mL (PLATINOL) - NaCl 0.9% iv infusion - NaCl 0.9% iv infusion - diphenhydrAMINE 50 mg injection (BENADRYL) - hydrocortisone sodium succinate (PF) 100 mg injection (Solu-CORTEF) - EPINEPHrine 1 mg/mL (1 mL) 0.3 mg injection - sodium chloride 0.9 % (flush) 10-20 mL (BD POSIFLUSH) - sodium chloride 0.9 % (flush) 10-20 mL (BD POSIFLUSH) Encounter Status:Closed by NELIDA DONALDSON on 11/05/23 [facility] 11-05-2023 Note HNO ID: [id number] Author: NELIDA DONALDSON RD Service: ? Author Type: Registered Dietitian Type: Progress Notes Filed: 11/05/2023 11:23 Note Text: Oncology Nutrition Therapy Initial Assessment RECOMMENDED MALNUTRITION DIAGNOSIS: NO MALNUTRITION IDENTIFIED Nutrition Diagnosis: Behavioral-Environmental: Food and nutrition related knowledge deficit, related to, lack of prior exposure to information , as evidenced by client has no prior knowledge of need for food and nutrition - related information Nutrition Intervention: -aim for small frequent meals/snacks -include lean protein source at each meal/snack -discussed potential nutrition related side effects from treatment -taste changes, N/V, bowel changes -encouraged adequate hydration -aim for 60-64 ounces non-caffeine containing fluids -discussed supplementation -boost (patient unsure which one); 2x per day (bkfst, evening snack) -provided contact information for any further questions/concerns Nutrition Monitoring AND Evaluation: -PO Intake -Wt status -BM's -Supplement tolerance/acceptance -Biochemical Markers -Plan of care Patient's symptoms are: None Patient presents for nutrition counseling for: malignant neoplasm of trigone of urinary bladder Current Treatment: Cisplatin, Gemcitabine Previous Treatment(s): n/a Pt denies any chewing/swallowing issues, denies current N/V/D/C. Pt denies food allergies/intolerances. Patient endorses good appetite and intakes. He reports typically consuming lunch and dinner and snacks mostly in the afternoon or evening hours. Not big on breakfast, but does consume boost. He is unsure if this is a boost original or plus, etc. Reviewed with pt importance of adequate calories/protein and preserving lean muscle mass. Reviewed above interventions, problem solved with pt on ways to meet recommendations, and answered all of patient's questions. Thank you for allowing me to participate in the care of this pt. Readiness to Learn: Cognitive ability: Alert and oriented Motivation to learn: Interested Family support: Unable to assess - Family not present Instruction provided to: Patient Patient learns best by: Individual Instruction Factors affecting learning: None Physical limitations affecting learning: None Educational materials provided: Creative Eating during Illness and Recovery Anthropometrics: Height: Last 1 Encounter Ht Readings: Date: Ht: 11/05/2023 174.5 cm (5' 8.7 ) Current weight: Last 1 Encounter Wt Readings: Date: Wt: 11/05/2023 89.2 kg (196 lb 10.4 oz) Estimated body mass index is 29.29 kg/m? as calculated from the following: Height as of an earlier encounter on 11/05/23: 174.5 cm (5' 8.7 ). Weight as of an earlier encounter on 11/05/23: 89.2 kg (196 lb 10.4 oz). Resting Metabolic Rate: 1730 Weight Change: n/a, patient denies any recent significant weight changes stating he is at his UBW. Dosing Weight: 89.2 kg Estimated kilocalorie needs: 2230 kilocalories determined by 25 kcal/kg Estimated protein needs: 89-107 grams determined by 1.0-1.2 g/kg Dosing weight Estimated fluid needs: ~2200 milliliters based on 1 mL per kcal (unless otherwise indicated) Nutrition Focused Physical Exam: Unable to perform exam due to concerns for lack of privacy in open/shared treatment room, will re-attempt during reassessment. Potential Signs of Inflammation: chronic condition Allergies: Patient has no known allergies. Medications: Current Outpatient Medications Medication Sig Dispense Refill ondansetron (ZOFRAN) 8 mg tablet Take 1 tablet by mouth every 8 hours as needed for nausea/vomiting. 90 tablet 1 prochlorperazine (COMPAZINE) 10 mg tablet Take 1 tablet by mouth every 6 hours as needed. 100 tablet 1 mirtazapine (REMERON) 30 mg tablet Take 30 mg by mouth daily at bedtime. No current facility-administered medications for this visit. Need for Follow up: will continue to follow Referred by: Arturo RUIZ Billing Type: Initial Assess/15 min 2 units Time Spent with Patient: 30 minutes Signed by: Nelida Donaldson, MS, RDN, LD [facility] 11-05-2023 History of Present illness Narrative Oncology Nutrition Therapy Initial Assessment RECOMMENDED MALNUTRITION DIAGNOSIS: NO MALNUTRITION IDENTIFIED Nutrition Diagnosis: Behavioral-Environmental: Food and nutrition related knowledge deficit, related to, lack of prior exposure to information , as evidenced by client has no prior knowledge of need for food and nutrition - related information Nutrition Intervention: -aim for small frequent meals/snacks -include lean protein source at each meal/snack -discussed potential nutrition related side effects from treatment -taste changes, N/V, bowel changes -encouraged adequate hydration -aim for 60-64 ounces non-caffeine containing fluids -discussed supplementation -boost (patient unsure which one); 2x per day (bkfst, evening snack) -provided contact information for any further questions/concerns Nutrition Monitoring & Evaluation: -PO Intake -Wt status -BM's -Supplement tolerance/acceptance -Biochemical Markers -Plan of care Patient's symptoms are: None Patient presents for nutrition counseling for: malignant neoplasm of trigone of urinary bladder Current Treatment: Cisplatin, Gemcitabine Previous Treatment(s): n/a Pt denies any chewing/swallowing issues, denies current N/V/D/C. Pt denies food allergies/intolerances. Patient endorses good appetite and intakes. He reports typically consuming lunch and dinner and snacks mostly in the afternoon or evening hours. Not big on breakfast, but does consume boost. He is unsure if this is a boost original or plus, etc. Reviewed with pt importance of adequate calories/protein and preserving lean muscle mass. Reviewed above interventions, problem solved with pt on ways to meet recommendations, and answered all of patient's questions. Thank you for allowing me to participate in the care of this pt. Readiness to Learn: Cognitive ability: Alert and oriented Motivation to learn: Interested Family support: Unable to assess - Family not present Instruction provided to: Patient Patient learns best by: Individual Instruction Factors affecting learning: None Physical limitations affecting learning: None Educational materials provided: Creative Eating during Illness and Recovery Anthropometrics: Height: Last 1 Encounter Ht Readings: Date: Ht: 11/05/2023 174.5 cm (5' 8.7 ) Current weight: Last 1 Encounter Wt Readings: Date: Wt: 11/05/2023 89.2 kg (196 lb 10.4 oz) Estimated body mass index is 29.29 kg/m as calculated from the following: Height as of an earlier encounter on 11/05/23: 174.5 cm (5' 8.7 ). Weight as of an earlier encounter on 11/05/23: 89.2 kg (196 lb 10.4 oz). Resting Metabolic Rate: 1730 Weight Change: n/a, patient denies any recent significant weight changes stating he is at his UBW. Dosing Weight: 89.2 kg Estimated kilocalorie needs: 2230 kilocalories determined by 25 kcal/kg Estimated protein needs: 89-107 grams determined by 1.0-1.2 g/kg Dosing weight Estimated fluid needs: ~2200 milliliters based on 1 mL per kcal (unless otherwise indicated) Nutrition Focused Physical Exam: Unable to perform exam due to concerns for lack of privacy in open/shared treatment room, will re-attempt during reassessment. Potential Signs of Inflammation: chronic condition Allergies: Patient has no known allergies. Medications: Current Outpatient Medications Medication Sig Dispense Refill ondansetron (ZOFRAN) 8 mg tablet Take 1 tablet by mouth every 8 hours as needed for nausea/vomiting. 90 tablet 1 prochlorperazine (COMPAZINE) 10 mg tablet Take 1 tablet by mouth every 6 hours as needed. 100 tablet 1 mirtazapine (REMERON) 30 mg tablet Take 30 mg by mouth daily at bedtime. No current facility-administered medications for this visit. Need for Follow up: will continue to follow Referred by: Arturo RUIZ Billing Type: Initial Assess/15 min 2 units Time Spent with Patient: 30 minutes Signed by: Nelida Donaldson MS, RDDean, JOSIAS documented in this encounter [facility] 11-05-2023 Note HNO ID: [id number] Author: VICENTE SANCHEZ MD Service: ? Author Type: Physician Type: Progress Notes Filed: 11/05/2023 12:54 Note Text: PATIENT NAME: Indra Olivarez DATE: 11/05/2023 PRIMARY CARE PHYSICIAN: Dr. Whitfield OTHER PHYSICIANS: Dr. Santiago, Dr. Venkatesh Small Portions of this encounter note have been copied from my note from 10/23/2023 and has been updated where appropriate, and reflect my current medical decision making from today. CC: This is a 53 year old male with recently diagnosed invasive bladder cancer, seen for scheduled follow-up and treatment. INTERIM HISTORY: Since the patient's initial visit here he underwent placement of a percutaneous right-sided nephrostomy tube on 11/02/2023. He tolerated the procedure well. His ostomy is functioning well with significant urine output. He is also urinating without difficulties. He has had no other significant medical changes. Currently feels well and is ready to proceed with chemotherapy as planned. MEDICATIONS: Current Outpatient Medications Medication Sig ondansetron (ZOFRAN) 8 mg tablet Take 1 tablet by mouth every 8 hours as needed for nausea/vomiting. prochlorperazine (COMPAZINE) 10 mg tablet Take 1 tablet by mouth every 6 hours as needed. mirtazapine (REMERON) 30 mg tablet Take 30 mg by mouth daily at bedtime. No current facility-administered medications for this visit. ALLERGIES: ALLERGIES No Known Allergies PAST MEDICAL HISTORY: PAST MEDICAL HISTORY Diagnosis Date Bladder cancer (HCC) BPH (benign prostatic hyperplasia) Depression Former smoker High cholesterol Hydronephrosis PAST SURGICAL HISTORY: PAST SURGICAL HISTORY Procedure Laterality Date COLONOSCOPY FAMILY HISTORY: FAMILY HISTORY Problem Relation Age of Onset Cervical Cancer Mother Heart disease Father Hypertension Father Hyperlipidemia Father Diabetes Sister Diabetes Maternal Grandmother Emphysema Paternal Grandmother Heart disease Paternal Grandfather SOCIAL HISTORY: Social History Tobacco Use Smoking status: Former Packs/day: 1 Types: Cigarettes Smokeless tobacco: Former Vaping Use Vaping Use: current everyday user Substances: Nicotine, Flavoring Devices: Disposable Substance Use Topics Alcohol use: Yes Drug use: Never COMPLETE REVIEW OF SYSTEMS: CONSTITUTION: Negative for pain, fatigue, weight loss, or appetite loss. EENT: Negative for mouth soreness, antibiotics use, epistaxis, visual problems, neck or facial swelling, fever/chills, bleeding gums, or hearing loss. CV: Negative for edema, calf swelling, palpitations, or chest pain. RESPIRATORY: Negative for cough, SOB, hemoptysis, or wheezing. GI: Negative for nausea/vomiting, heartburn, vomiting blood, dysphasia, diarrhea, blood in stool, constipation, early satiety, PICA, vegetarian, poor nutrition, abdominal fullness, or abdominal pain. NEUROLOGICAL: Negative for numbness/tingling, dizziness, gait disturbance, headache, speech disturbance, tremor, hemiparesis/sensory loss, or change in mental status. MUSCULOSKELETAL: Negative for joint pain, joint swelling, or proximal muscle weakness. SKIN: Negative for hair loss, bruising, nail changes, rash, itching, pallor, or jaundice. ENDO/URO: Negative for hot flashes, cold or heat intolerance, urinary frequency, urinary hesitancy, menorrhagia, or hematuria. PSYCH: Negative for anxiety, depression, or other. PHYSICAL EXAM: BP 140/67 Pulse 114 Temp 36.2 ?C (97.2 ?F) (Temporal) Resp 18 Ht 174.5 cm (5' 8.7 ) Wt 89.2 kg (196 lb 10.4 oz) SpO2 98% BMI 29.29 kg/m? GENERAL EXAM: Well developed/well nourished; in no acute distress. SKIN: Negative for lesions, rashes, or ulcers on the upper and lower extremities and face. Negative for palpations/nodules, purpura, and ecchymosis. EENT: Negative for conjunctiva, mucosal pallor, JVD, LAP, thyromegaly, and glossitis. Supple AND PERRL. EXTREMITIES: Negative for cyanosis, clubbing, and crepitus. LUNGS: Negative to auscultation, respiratory effort, and percussion. CARDIOVASCULAR: Regular rate. Negative for murmurs/S3S4/abnormal sounds, edema, and carotid bruits. ABDOMEN: Negative for masses, hernia, and spleen/liver abnormalities. RECTAL: Not done PSYCHIATRIC: Negative for mood/affect changes, recent AND remote memory changes, and judgement and insight. NEUROLOGICAL: Alert, oriented x person, place, time. Cranial nerves 2-12 intact. Sensory for pain, light touch, vibration intact on all 4 extremities. Reflexes symmetric for biceps/brachioradial/patella/achill es. MUSCULOSKELETAL: Negative examination of joints, bones, muscles/tendons of all four extremities for inspection, percussion, and palpation. Negative for misallignment, asymmetry, crepitation, tenderness, mass, effusions. Range of motion normal. Negative for joint instability, laxity, dislocation. Gait steady. Negative for swelling, erythema, tenderness, sof (more content not included)... [facility] 11-05-2023 History of Present illness Narrative PATIENT NAME: Indra Olivarez DATE: 11/05/2023 PRIMARY CARE PHYSICIAN: Dr. Whitfield OTHER PHYSICIANS: Dr. Santiago, Dr. Venkatesh Small Portions of this encounter note have been copied from my note from 10/23/2023 and has been updated where appropriate, and reflect my current medical decision making from today. CC: This is a 53 year old male with recently diagnosed invasive bladder cancer, seen for scheduled follow-up and treatment. INTERIM HISTORY: Since the patient's initial visit here he underwent placement of a percutaneous right-sided nephrostomy tube on 11/02/2023. He tolerated the procedure well. His ostomy is functioning well with significant urine output. He is also urinating without difficulties. He has had no other significant medical changes. Currently feels well and is ready to proceed with chemotherapy as planned. MEDICATIONS: Current Outpatient Medications Medication Sig ondansetron (ZOFRAN) 8 mg tablet Take 1 tablet by mouth every 8 hours as needed for nausea/vomiting. prochlorperazine (COMPAZINE) 10 mg tablet Take 1 tablet by mouth every 6 hours as needed. mirtazapine (REMERON) 30 mg tablet Take 30 mg by mouth daily at bedtime. No current facility-administered medications for this visit. ALLERGIES: ALLERGIES No Known Allergies PAST MEDICAL HISTORY: PAST MEDICAL HISTORY Diagnosis Date Bladder cancer (HCC) BPH (benign prostatic hyperplasia) Depression Former smoker High cholesterol Hydronephrosis PAST SURGICAL HISTORY: PAST SURGICAL HISTORY Procedure Laterality Date COLONOSCOPY FAMILY HISTORY: FAMILY HISTORY Problem Relation Age of Onset Cervical Cancer Mother Heart disease Father Hypertension Father Hyperlipidemia Father Diabetes Sister Diabetes Maternal Grandmother Emphysema Paternal Grandmother Heart disease Paternal Grandfather SOCIAL HISTORY: Social History Tobacco Use Smoking status: Former Packs/day: 1 Types: Cigarettes Smokeless tobacco: Former Vaping Use Vaping Use: current everyday user Substances: Nicotine, Flavoring Devices: Disposable Substance Use Topics Alcohol use: Yes Drug use: Never COMPLETE REVIEW OF SYSTEMS: CONSTITUTION: Negative for pain, fatigue, weight loss, or appetite loss. EENT: Negative for mouth soreness, antibiotics use, epistaxis, visual problems, neck or facial swelling, fever/chills, bleeding gums, or hearing loss. CV: Negative for edema, calf swelling, palpitations, or chest pain. RESPIRATORY: Negative for cough, SOB, hemoptysis, or wheezing. GI: Negative for nausea/vomiting, heartburn, vomiting blood, dysphasia, diarrhea, blood in stool, constipation, early satiety, PICA, vegetarian, poor nutrition, abdominal fullness, or abdominal pain. NEUROLOGICAL: Negative for numbness/tingling, dizziness, gait disturbance, headache, speech disturbance, tremor, hemiparesis/sensory loss, or change in mental status. MUSCULOSKELETAL: Negative for joint pain, joint swelling, or proximal muscle weakness. SKIN: Negative for hair loss, bruising, nail changes, rash, itching, pallor, or jaundice. ENDO/URO: Negative for hot flashes, cold or heat intolerance, urinary frequency, urinary hesitancy, menorrhagia, or hematuria. PSYCH: Negative for anxiety, depression, or other. PHYSICAL EXAM: BP 140/67 Pulse 114 Temp 36.2 C (97.2 F) (Temporal) Resp 18 Ht 174.5 cm (5' 8.7 ) Wt 89.2 kg (196 lb 10.4 oz) SpO2 98% BMI 29.29 kg/m GENERAL EXAM: Well developed/well nourished; in no acute distress. SKIN: Negative for lesions, rashes, or ulcers on the upper and lower extremities and face. Negative for palpations/nodules, purpura, and ecchymosis. EENT: Negative for conjunctiva, mucosal pallor, JVD, LAP, thyromegaly, and glossitis. Supple & PERRL. EXTREMITIES: Negative for cyanosis, clubbing, and crepitus. LUNGS: Negative to auscultation, respiratory effort, and percussion. CARDIOVASCULAR: Regular rate. Negative for murmurs/S3S4/abnormal sounds, edema, and carotid bruits. ABDOMEN: Negative for masses, hernia, and spleen/liver abnormalities. RECTAL: Not done PSYCHIATRIC: Negative for mood/affect changes, recent & remote memory changes, and judgement and insight. NEUROLOGICAL: Alert, oriented x person, place, time. Cranial nerves 2-12 intact. Sensory for pain, light touch, vibration intact on all 4 extremities. Reflexes symmetric for biceps/brachioradial/patella/achill es. MUSCULOSKELETAL: Negative examination of joints, bones, muscles/tendons of all four extremities for inspection, percussion, and palpation. Negative for misallignment, asymmetry, crepitation, tenderness, mass, effusions. Range of motion normal. Negative for joint instability, laxity, dislocation. Gait steady. Negative for swelling, erythema, tenderness, soft tissue swelling, and atrophy. PATHOLOGY: 09/27/2023 Cystoscopy with TURBT - Invasive high-grade papillary urothelial carcinoma with invasion into muscularis propria (best visualized in slide A14). - Angiolymphatic invasion is not present. LABS: Hemoglobin (g/dL) Date Value 11/05/2023 14.1 Hematocrit (%) Date Value 11/05/2023 42.0 WBC (k/uL) Date Value 11/05/2023 9.15 Platelet Count (k/uL) Date Value 11/05/2023 234 RADIOLOGY/OTHER STUDIES: 10/23/2023 CT CHEST IMPRESSION: 1. No convincing findings of metastatic disease in the thorax. Unremarkable chest CT. 10/23/2023 CT UROGRAM IMPRESSION: Irregular somewhat nodular posterior bladder wall thickening as described; this may be postsurgical or represent represent residual tumor. Moderate RIGHT hydroureteronephrosis to level the UVJ with mild circumferential soft tissue thickening of the RIGHT distal ureter. Tumor involvement of the distal ureter not excluded. No lymphadenopathy or other metastatic disease. 09/27/2023 Cystoscopy with TURBT ([facility]) Large bladder tumor much greater than 6 cm obstructing the right hemitrigone causing hydroureteronephrosis. 09/15/2023 CT abdomen/pelvis ([facility]) 5.3 x 4.7 cm enhancing lesion arising from the right urinary bladder wall as well as the base, resolving and possible invasion of right UV junction and right UV. Findings highly suspicious for urinary bladder neoplasm. Invasion of the prostate cannot be excluded. 09/08/2023 Bilateral renal ultrasound ([facility]) Marked hydronephrosis of the right kidney. Lobulated solid mass in the base of the bladder measuring 6.4 x 5.9 x 6 cm. Left kidney appears unremarkable and no hydronephrosis noted. ASSESSMENT/PLAN: 1. Malignant neoplasm of bladder (HCC) - ICD9: 188.8, ICD10: C67.8 (primary diagnosis) August 2023 the patient presented with hematuria and difficulty urinating. Renal ultrasound 09/08/2023 revealed significant right hydronephrosis with an apparent mass involving the right side of his bladder. CT abdomen/pelvis 09/15/2023 confirmed a 6 cm mass at the base of the right bladder. Initial cystoscopy 09/27/2023 revealed a large bladder tumor at the base of the bladder obstructing the right ureter. Status post TURBT 09/27/2023 followed by a second cystoscopy with resection of the residual tumor on 09/28/2023. Pathology on the resected specimen revealed invasive high-grade papillary urothelial carcinoma. Staging scans revealed no evidence of metastases. After the diagnosis was confirmed it was elected to proceed with neoadjuvant chemotherapy with gemcitabine/cisplatin x 4 cycles followed by cystectomy. As planned the patient will receive gemcitabine/cisplatin cycle 1 day 1 today. Return in 1 week for day 8. 2. Hydronephrosis - ICD9: 591, ICD10: N13.30 Significant right hydronephrosis secondary to bladder tumor identified on initial ultrasound/CT scan September 2023. Improved after initial TURBT 09/27/2023. Status post right-sided percutaneous nephroureteral catheter placement 11/02/2023. Renal function improved. Will monitor labs and scans closely. Vicente Sanchez MD CC: Dr. Santiago documented in this encounter [facility] 11-02-2023 Note HNO ID: [id number] Author: ARELY BAUTISTA RN Service: PICC Team Author Type: Registered Nurse Type: Plan of Care Filed: 11/02/2023 09:30 Note Text: Attestation signed by Marya Bobby at 11/02/2023 11:04 AM Due 12/27 This message is for Interventional medical office scheduler TUBE RELATED APPOINTMENT REQUEST FORM Patient Name: Indra Chavarriah Patient Person filling this form: Arely Bautista RN Date: November 02, 2023 Time: 9:29 AM What type of tube is this? Nephrostomy or nephroureteral (tube in the back) . Procedural appointment request: Does this tube need to be exchanged? Yes, How many weeks till next change? 8 weeks, Specific Physician? No. , General Anesthesia Needed? No, Where can this procedure be scheduled? [place]. . Telephone appointment request: Is this a new/fresh percutaneous tube? Yes, ALL NEW biliary, gall bladder and urinary tube placements must have 2 week follow up telephone appointment. Please arrange a 2 (two) week telephone appointment. Did you enter the outpatient scheduler's name in the co-sign box (see the top left in this screen): Yes Any additional information that would be helpful to schedule this patient ? N/A. [facility] 10-29-2023 Note HNO ID: [id number] Author: ITALIA SPRINGER, BEV Service: ? Author Type: Registered Nurse Type: Progress Notes Filed: 10/29/2023 12:47 Note Text: Nuclear Radiation Engineer Pre Chemo Patient identified by name and date of . YES Confirmed date and time for chemotherapy ? YES Other appointments (labs, imaging) discussed? YES Discussed where to park ([employer]), charge for parking NO Discussed where to report (building/floor) YES Any pre-medications ordered? NO Described the infusion room and what to expect. (What to wear, what to bring [iPad, books] amount of time treatment can take, meals and CC options for food) YES Note: NA Discussed whether the patient can eat prior to labs and treatment. YES Who is driving you to and from treatment? Daughter Discussed why it is important to bring someone with you. Yes, Resources discussed (music therapy, Art therapy, pet therapy, etc.) YES Education on chemotherapy (drug, side effects) discussed and that the patient will be receiving a C1D1 call within 7 days of treatment. YES Other topics discussed, interventions needed: SARA Springer RN [facility] 10-29-2023 Note HNO ID: [id number] Author: ITALIA SPRINGER RN Service: ? Author Type: Registered Nurse Type: Progress Notes Filed: 10/29/2023 12:47 Note Text: ONCOLOGY PATIENT EDUCATION NOTE TOPIC: Chemotherapy, Medications: Cisplatin AND Abraxane READINESS TO LEARN: COGNITIVE ABILITY: Alert and oriented MOTIVATION TO LEARN: Interested FAMILY SUPPORT: High - Very involved in pt care INSTRUCTION PROVIDED TO: Patient and Daughter x 2. INSTRUCTION PROVIDED BY: Nurse Coordinator PATIENT LEARNS BEST BY: Multiple Methods FACTORS AFFECTING LEARNING: None PHYSICAL LIMITATIONS AFFECTING LEARNING: None LEARNING RESPONSE DIAGNOSIS: Bladder Cancer METHOD OF INSTRUCTION: Individual instruction Written instruction - handouts Verbal instruction PATIENT/FAMILY RESPONSE: Verbalizes understanding of: CATHETER CARE-Correct procedure to perform catheter care INFECTION MANAGEMENT-Signs and symptoms of an infection and importance of contacting the physician POST-PROCEDURE INSTRUCTIONS-Correct actions to take to reduce post procedure complications SYMPTOM MANAGEMENT-Correct actions to take to manage symptoms associated with his/her disease/illness WORSENING CONDITION-Signs and symptoms of a worsening condition that warrant a call to the physician Information received as demonstrated by interest and questions FOLLOW UP PLAN: Patient instructed to call with any further issues Contact information given. SUPPLEMENTAL MATERIAL: Written material was provided at this visit with the following information: - Chemotherapy education was provided by a pharmacist NO - Not available - Side effect management information was provided/discussed including but not limited to: anemia, appetite changes, arthralgia, bowel habit changes, diet, electrolyte disturbances, fatigue, hair loss, headache, infection, kidney toxicity, mouth hygiene, mucositis, myalgia, nausea/vomitting, neutropenia, peripheral neuropathy, rash, shortness of breath, skin changes, taste changes, thrombocytopenia YES - Provided important phone numbers and contacts during and after hours. YES - Provided information on symptoms that require immediate assistance. YES - Provided Chemotherapy when to call handouts YES - Preventing infection. YES - Treatment schedule and confirmation of appointment times. YES - Available support groups. YES - The importance of contraception during the course of chemotherapy YES - Prescriptions for anti-emetics or treatment prep was given: Compazine and Zofran. YES - A tour was given of the infusion suite with directions for the first day. YES - Neutropenic fever protocol discussed with patient, which included the importance of reporting any fever of 100.4F (38.0C) or greater to the healthcare team as noted on the provided wallet card and/or magnet. YES - [employer] Information. YES - Patient services information. YES Time Spent: 48 minutes REFERRAL (RECOMMENDATION): Janine Springer RN [facility] 10-29-2023 Note Education (BREANNA) INDRA OLIVAREZ ([id number]) 1970 [facility] Date Time Provider Department 10/29/23 ITALIA SPRINGER Reason for Visit: First Time Treatment Education [8271] Cmt: Gemcitabine AND Cisplatin Primary Visit Diagnosis:Malignant neoplasm of trigone of urinary bladder (HCC) [C67.0] During your visit today, we recorded the following information about you: Allergies As of Date: 10/29/2023 (No Known Allergies) Date Reviewed: 10/29/2023 Reviewed by: Italia Springer RN - Fully Assessed Prescriptions as of 10/29/2023 - ondansetron (ZOFRAN) 8 mg tablet Take 1 tablet by mouth every 8 hours as needed for nausea/vomiting. - prochlorperazine (COMPAZINE) 10 mg tablet Take 1 tablet by mouth every 6 hours as needed. - mirtazapine (REMERON) 30 mg tablet Take 30 mg by mouth daily at bedtime. Encounter Status:Closed by ITALIA SPRINGER on 10/29/23 [facility] 10-29-2023 Miscellaneous Notes Per Inga she will see patient while he is in treatment on Sunday the . Patient very happy with this decision. JAYLYN/Fermín: Order for nutrition referral pended. Clerical: Please schedule w/ Inga. Pt would prefer a telephone visit. Italia Springer RN documented in this encounter 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 YES Confirmed date and time for chemotherapy ? YES Other appointments (labs, imaging) discussed? YES Discussed where to park ([employer]), charge for parking NO Discussed where to report (building/floor) YES Any pre-medications ordered? NO Described the infusion room and what to expect. (What to wear, what to bring [iPad, books] amount of time treatment can take, meals and CC options for food) YES Note: NA Discussed whether the patient can eat prior to labs and treatment. YES Who is driving you to and from treatment? Daughter Discussed why it is important to bring someone with you. Yes, Resources discussed (music therapy, Art therapy, pet therapy, etc.) YES Education on chemotherapy (drug, side effects) discussed and that the patient will be receiving a C1D1 call within 7 days of treatment. YES Other topics discussed, interventions needed: SARA Springer RN ONCOLOGY PATIENT EDUCATION NOTE TOPIC: Chemotherapy, Medications: Cisplatin & Abraxane READINESS TO LEARN: COGNITIVE ABILITY: Alert and oriented MOTIVATION TO LEARN: Interested FAMILY SUPPORT: High - Very involved in pt care INSTRUCTION PROVIDED TO: Patient and Daughter x 2. INSTRUCTION PROVIDED BY: Nurse Coordinator PATIENT LEARNS BEST BY: Multiple Methods FACTORS AFFECTING LEARNING: None PHYSICAL LIMITATIONS AFFECTING LEARNING: None LEARNING RESPONSE DIAGNOSIS: Bladder Cancer METHOD OF INSTRUCTION: Individual instruction Written instruction - handouts Verbal instruction PATIENT/FAMILY RESPONSE: Verbalizes understanding of: CATHETER CARE-Correct procedure to perform catheter care INFECTION MANAGEMENT-Signs and symptoms of an infection and importance of contacting the physician POST-PROCEDURE INSTRUCTIONS-Correct actions to take to reduce post procedure complications SYMPTOM MANAGEMENT-Correct actions to take to manage symptoms associated with his/her disease/illness WORSENING CONDITION-Signs and symptoms of a worsening condition that warrant a call to the physician Information received as demonstrated by interest and questions FOLLOW UP PLAN: Patient instructed to call with any further issues Contact information given. SUPPLEMENTAL MATERIAL: Written material was provided at this visit with the following information: - Chemotherapy education was provided by a pharmacist NO - Not available - Side effect management information was provided/discussed including but not limited to: anemia, appetite changes, arthralgia, bowel habit changes, diet, electrolyte disturbances, fatigue, hair loss, headache, infection, kidney toxicity, mouth hygiene, mucositis, myalgia, nausea/vomitting, neutropenia, peripheral neuropathy, rash, shortness of breath, skin changes, taste changes, thrombocytopenia YES - Provided important phone numbers and contacts during and after hours. YES - Provided information on symptoms that require immediate assistance. YES - Provided Chemotherapy when to call handouts YES - Preventing infection. YES - Treatment schedule and confirmation of appointment times. YES - Available support groups. YES - The importance of contraception during the course of chemotherapy YES - Prescriptions for anti-emetics or treatment prep was given: Compazine and Zofran. YES - A tour was given of the infusion suite with directions for the first day. YES - Neutropenic fever protocol discussed with patient, which included the importance of reporting any fever of 100.4F (38.0C) or greater to the healthcare team as noted on the provided wallet card and/or magnet. YES - [employer] Information. YES - Patient services information. YES Time Spent: 48 minutes REFERRAL (RECOMMENDATION): Nutrition Italia Springer, RN documented in this encounter [facility] 10-26-2023 Miscellaneous Notes You are scheduled for a nephrostomy tube placement on November 01. You are to arrive at 7 am and Report to [facility] First Floor Radiology Registration Desk. You can expect to be here for 4-8 hours. Diet: Do not eat any solid food after midnight the night before your procedure. You may drink clear liquids until 6 am, which means black coffee, apple juice, black tea, or water only. Medications: Ok to take your cardiac, blood pressure, anti-seizure, and chronic pain medications with a sip of water, please take prior to arrival. Bring your current medication list. Labs: Lab-work needs to be drawn? Yes, labs (INR) need to be drawn at least one day prior to procedure. Office Administration Instructor/Transportation: How will you be arriving for your procedure? Private car. You will need a responsible adult to accompany you to and from the procedure. Please call [phone] option 3 with any questions. documented in this encounter [facility] 10-24-2023 Miscellaneous Notes The following approved medication requests have been transmitted electronically. Requested Prescriptions Signed Prescriptions Disp Refills ondansetron (ZOFRAN) 8 mg tablet 90 tablet 1 Sig: Take 1 tablet by mouth every 8 hours as needed for nausea/vomiting. Authorizing Provider: FERMÍN VILLARREAL prochlorperazine (COMPAZINE) 10 mg tablet 100 tablet 1 Sig: Take 1 tablet by mouth every 6 hours as needed. Authorizing Provider: FERMÍN VILLARREAL APRN.ISRA Pt will be in on Sunday for education (Gemzar, Cisplatin). Scripts for antiemetics pended. Italia Springer RN documented in this encounter [facility] 10-24-2023 Miscellaneous Notes I contacted Indra to review results of blood work and imaging which demonstrates persistent right hydroureteronephrosis consistent with distal ureteral obstruction, with labs demonstrating creatinine of 1.3 corresponding to a GFR around 60. I explained my concern with persistent distal ureteral obstruction and reviewed management options including ureteral stent placement versus nephrostomy tube placement. I reviewed risks and benefits of each and explained that retrograde ureteral stent placement may not be feasible given anticipated scar at the site of resection which often leads to difficulty identifying the ureteral orifice. Nephrostomy tube placement would be a more certain method of dealing with the obstruction in one procedure, and I explained that we could asked the interventional radiologist to attempt antegrade nephroureteral catheter placement. If this were to be feasible and he were to later tolerate a clamp trial we could consider conversion to a ureteral stent. I have explained that he will require renal drainage in this manner until completing neoadjuvant chemotherapy and undergoing radical cystectomy. After reviewing these options he is elected to proceed with percutaneous nephrostomy tube placement with attempt at antegrade access across the site of obstruction. He accepts the possibility that he will require nephrostomy tube with external drainage bag if we are unable to cross the obstruction. I will update his medical oncologist Dr. Sanchez. Venkatesh Small MD documented in this encounter [facility] 10-23-2023 Note HNO ID: [id number] Author: SHAKIRA PULIDO RT(R) Service: Radiology Author Type: Technologist Type: Progress Notes Filed: 10/23/2023 14:51 Note Text: Radiology Service Progress Note PATIENT NAME: Indra Olivarez DATE OF SERVICE: October 23, 2023 TIME: 2:51 PM PATIENT IDENTITY VERIFICATION COMPLETED USING TWO (2) IDENTIFIERS: Name and Date of confirmed by patient verbally. FALL SCREENING: Has the patient had 2 falls in the last year or 1 fall with injury or currently using an Ambulatory Assistive Device (Walker, Cane, Wheelchair, Crutches, etc.)? No PATIENT GENDER DATA: Male PATIENT RELEVANT IMPLANT DATA REVIEWED: Not Applicable PATIENT PRESENTS WITH AN IMPLANTABLE OR ATTACHED TUBING SUPERVISOR: No RADIOLOGY DEPARTMENT: CT; Exam(s) Completed: Chest and Urogram PERIPHERAL IV DATA: Site assessment: Clean,Dry and Intact, Site disposition Discontinued 20g right ac SIGNED BY: Shakira Tootie, RT(R) October 23, 2023 2:51 PM [facility] 10-23-2023 Note HNO ID: [id number] Author: GAYLE LANG RN Service: ? Author Type: Registered Nurse Type: Progress Notes Filed: 10/23/2023 14:42 Note Text: Radiology Service Progress Note DATE OF SERVICE: October 23, 2023 TIME: 2:41 PM PATIENT WEIGHT: 188LBS PATIENT IDENTITY VERIFICATION COMPLETED USING TWO (2) STANDARD IDENTIFIERS: Name and Date of confirmed by patient verbally. FALL SCREENING: Has the patient had 2 falls in the last year or 1 fall with injury or currently using an Ambulatory Assistive Device (Walker, Cane, Wheelchair, Crutches, etc.)? No PATIENT GENDER DATA: Male ALLERGIES: Reviewed and unchanged CONTRAST ALLERGY: No EXAM: CT -CONTRAST INDUCED NEPHROPATHY RISK FACTORS: Known Chronic Kidney Disease (CKD) CREATININE: No results found for: CREAT , EGFROTH , EGFRAA P.O.C.T. RESULTS: POC done: Yes, See Lab Tab October 23, 2023 TREATMENT: N/A IV SITE: Ambulatory: A peripheral IV was started in the Right antecubital site with a Angio cath: 20 gauge. IV SITE APPEARANCE: Clean,Dry and Intact SIGNATURE: Gayle Lang RN PATIENT NAME: Indra Olivarez DATE: October 23, 2023 TIME: 2:41 PM [facility] 10-23-2023 Note HNO ID: [id number] Author: VICENTE SANCHEZ MD Service: ? Author Type: Physician Type: Progress Notes Filed: 10/24/2023 07:59 Note Text: PATIENT NAME: Indra Olivarez DATE: 10/23/2023 PRIMARY CARE PHYSICIAN: Dr. Whitfield OTHER PHYSICIANS: Dr. Santiago, Dr. Venkatesh Small HPI: This is a 53 year old male with recently diagnosed invasive bladder cancer, referred for further management. The patient has had hematuria and difficulty urinating since June 2023. By August 2023 his symptoms worsened and he underwent evaluation. Renal ultrasound 09/08/2023 revealed significant right hydronephrosis with an apparent mass involving the right side of his bladder. CT abdomen/pelvis 09/15/2023 confirmed a 6 cm mass at the base of the right bladder. He was referred to urology (Dr. Santiago) and underwent cystoscopy on 09/27/2023. This revealed a large bladder tumor at the base of the bladder obstructing the right ureter. He underwent TURBT on 09/27/2023, and a second cystoscopy with resection of the residual tumor on 09/28/2023. Pathology on the resected specimen revealed invasive high-grade papillary urothelial carcinoma. He was referred to [facility] and recommendations were to stage with CT scans, and if no metastasis proceed with neoadjuvant chemotherapy followed by cystectomy. Currently the patient feels fairly well. Since his cystoscopy hematuria has resolved, and his urinary symptoms have improved. He denies any unusual pain. No weight loss or other systemic symptoms. Past medical history otherwise is unremarkable. His only medication is Remeron for depression. He has a history of smoking, quit at least 5 years ago. He currently vapes . Family history is negative. MEDICATIONS: Current Outpatient Medications Medication Sig mirtazapine (REMERON) 30 mg tablet Take 30 mg by mouth daily at bedtime. No current facility-administered medications for this visit. ALLERGIES: ALLERGIES No Known Allergies PAST MEDICAL HISTORY: PAST MEDICAL HISTORY Diagnosis Date Bladder cancer (HCC) BPH (benign prostatic hyperplasia) Depression Former smoker High cholesterol Hydronephrosis PAST SURGICAL HISTORY: PAST SURGICAL HISTORY Procedure Laterality Date COLONOSCOPY FAMILY HISTORY: FAMILY HISTORY Problem Relation Age of Onset Cancer Mother Heart disease Father SOCIAL HISTORY: COMPLETE REVIEW OF SYSTEMS: CONSTITUTION: Negative for pain, fatigue, weight loss, or appetite loss. EENT: Negative for mouth soreness, antibiotics use, epistaxis, visual problems, neck or facial swelling, fever/chills, bleeding gums, or hearing loss. CV: Negative for edema, calf swelling, palpitations, or chest pain. RESPIRATORY: Negative for cough, SOB, hemoptysis, or wheezing. GI: Negative for nausea/vomiting, heartburn, vomiting blood, dysphasia, diarrhea, blood in stool, constipation, early satiety, PICA, vegetarian, poor nutrition, abdominal fullness, or abdominal pain. NEUROLOGICAL: Negative for numbness/tingling, dizziness, gait disturbance, headache, speech disturbance, tremor, hemiparesis/sensory loss, or change in mental status. MUSCULOSKELETAL: Negative for joint pain, joint swelling, or proximal muscle weakness. SKIN: Negative for hair loss, bruising, nail changes, rash, itching, pallor, or jaundice. ENDO/URO: Negative for hot flashes, cold or heat intolerance, urinary frequency, urinary hesitancy, menorrhagia, or hematuria. PSYCH: Negative for anxiety, depression, or other. PHYSICAL EXAM: BP 139/82 Pulse 107 Temp 36.2 ?C (97.1 ?F) (Temporal) Resp 18 Ht 177.8 cm (5' 10 ) Wt 85.8 kg (189 lb 2.5 oz) SpO2 99% BMI 27.14 kg/m? GENERAL EXAM: Well developed/well nourished; in no acute distress. SKIN: Negative for lesions, rashes, or ulcers on the upper and lower extremities and face. Negative for palpations/nodules, purpura, and ecchymosis. EENT: Negative for conjunctiva, mucosal pallor, JVD, LAP, thyromegaly, and glossitis. Supple AND PERRL. EXTREMITIES: Negative for cyanosis, clubbing, and crepitus. LUNGS: Negative to auscultation, respiratory effort, and percussion. CARDIOVASCULAR: Regular rate. Negative for murmurs/S3S4/abnormal sounds, edema, and carotid bruits. ABDOMEN: Negative for masses, hernia, and spleen/liver abnormalities. RECTAL: Not done PSYCHIATRIC: Negative for mood/affect changes, recent AND remote memory changes, and judgement and insight. NEUROLOGICAL: Alert, oriented x person, place, time. Cranial nerves 2-12 intact. Sensory for pain, light touch, vibration intact on all 4 extremities. Reflexes symmetric for biceps/brachioradial/patella/achill es. MUSCULOSKELETAL: Negative examination of joints, bones, muscles/tendons of all four extremities for inspection, percussion, and palpation. Negative for misallignment, asymmetry, crepitation, tenderness, mass, effusions. Range of motion normal. Negative for joint instability, laxity, dislocation. Gait (more content not included)... [facility] 10-23-2023 History of Present illness Narrative PATIENT NAME: Indra Olivarez DATE: 10/23/2023 PRIMARY CARE PHYSICIAN: Dr. Whitfield OTHER PHYSICIANS: Dr. Santiago, Dr. Venkatesh Small HPI: This is a 53 year old male with recently diagnosed invasive bladder cancer, referred for further management. The patient has had hematuria and difficulty urinating since June 2023. By August 2023 his symptoms worsened and he underwent evaluation. Renal ultrasound 09/08/2023 revealed significant right hydronephrosis with an apparent mass involving the right side of his bladder. CT abdomen/pelvis 09/15/2023 confirmed a 6 cm mass at the base of the right bladder. He was referred to urology (Dr. Santiago) and underwent cystoscopy on 09/27/2023. This revealed a large bladder tumor at the base of the bladder obstructing the right ureter. He underwent TURBT on 09/27/2023, and a second cystoscopy with resection of the residual tumor on 09/28/2023. Pathology on the resected specimen revealed invasive high-grade papillary urothelial carcinoma. He was referred to [facility] and recommendations were to stage with CT scans, and if no metastasis proceed with neoadjuvant chemotherapy followed by cystectomy. Currently the patient feels fairly well. Since his cystoscopy hematuria has resolved, and his urinary symptoms have improved. He denies any unusual pain. No weight loss or other systemic symptoms. Past medical history otherwise is unremarkable. His only medication is Remeron for depression. He has a history of smoking, quit at least 5 years ago. He currently vapes . Family history is negative. MEDICATIONS: Current Outpatient Medications Medication Sig mirtazapine (REMERON) 30 mg tablet Take 30 mg by mouth daily at bedtime. No current facility-administered medications for this visit. ALLERGIES: ALLERGIES No Known Allergies PAST MEDICAL HISTORY: PAST MEDICAL HISTORY Diagnosis Date Bladder cancer (HCC) BPH (benign prostatic hyperplasia) Depression Former smoker High cholesterol Hydronephrosis PAST SURGICAL HISTORY: PAST SURGICAL HISTORY Procedure Laterality Date COLONOSCOPY FAMILY HISTORY: FAMILY HISTORY Problem Relation Age of Onset Cancer Mother Heart disease Father SOCIAL HISTORY: COMPLETE REVIEW OF SYSTEMS: CONSTITUTION: Negative for pain, fatigue, weight loss, or appetite loss. EENT: Negative for mouth soreness, antibiotics use, epistaxis, visual problems, neck or facial swelling, fever/chills, bleeding gums, or hearing loss. CV: Negative for edema, calf swelling, palpitations, or chest pain. RESPIRATORY: Negative for cough, SOB, hemoptysis, or wheezing. GI: Negative for nausea/vomiting, heartburn, vomiting blood, dysphasia, diarrhea, blood in stool, constipation, early satiety, PICA, vegetarian, poor nutrition, abdominal fullness, or abdominal pain. NEUROLOGICAL: Negative for numbness/tingling, dizziness, gait disturbance, headache, speech disturbance, tremor, hemiparesis/sensory loss, or change in mental status. MUSCULOSKELETAL: Negative for joint pain, joint swelling, or proximal muscle weakness. SKIN: Negative for hair loss, bruising, nail changes, rash, itching, pallor, or jaundice. ENDO/URO: Negative for hot flashes, cold or heat intolerance, urinary frequency, urinary hesitancy, menorrhagia, or hematuria. PSYCH: Negative for anxiety, depression, or other. PHYSICAL EXAM: BP 139/82 Pulse 107 Temp 36.2 C (97.1 F) (Temporal) Resp 18 Ht 177.8 cm (5' 10 ) Wt 85.8 kg (189 lb 2.5 oz) SpO2 99% BMI 27.14 kg/m GENERAL EXAM: Well developed/well nourished; in no acute distress. SKIN: Negative for lesions, rashes, or ulcers on the upper and lower extremities and face. Negative for palpations/nodules, purpura, and ecchymosis. EENT: Negative for conjunctiva, mucosal pallor, JVD, LAP, thyromegaly, and glossitis. Supple & PERRL. EXTREMITIES: Negative for cyanosis, clubbing, and crepitus. LUNGS: Negative to auscultation, respiratory effort, and percussion. CARDIOVASCULAR: Regular rate. Negative for murmurs/S3S4/abnormal sounds, edema, and carotid bruits. ABDOMEN: Negative for masses, hernia, and spleen/liver abnormalities. RECTAL: Not done PSYCHIATRIC: Negative for mood/affect changes, recent & remote memory changes, and judgement and insight. NEUROLOGICAL: Alert, oriented x person, place, time. Cranial nerves 2-12 intact. Sensory for pain, light touch, vibration intact on all 4 extremities. Reflexes symmetric for biceps/brachioradial/patella/achill es. MUSCULOSKELETAL: Negative examination of joints, bones, muscles/tendons of all four extremities for inspection, percussion, and palpation. Negative for misallignment, asymmetry, crepitation, tenderness, mass, effusions. Range of motion normal. Negative for joint instability, laxity, dislocation. Gait steady. Negative for swelling, erythema, tenderness, soft tissue swelling, and atrophy. PATHOLOGY: 09/27/2023 Cystoscopy with TURBT - Invasive high-grade papillary urothelial carcinoma with invasion into muscularis propria (best visualized in slide A14). - Angiolymphatic invasion is not present. LABS: Hemoglobin (g/dL) Date Value 10/23/2023 15.2 Hematocrit (%) Date Value 10/23/2023 45.5 WBC (k/uL) Date Value 10/23/2023 8.94 Platelet Count (k/uL) Date Value 10/23/2023 321 RADIOLOGY/OTHER STUDIES: 10/23/2023 CT CHEST IMPRESSION: 1. No convincing findings of metastatic disease in the thorax. Unremarkable chest CT. 10/23/2023 CT UROGRAM IMPRESSION: Irregular somewhat nodular posterior bladder wall thickening as described; this may be postsurgical or represent represent residual tumor. Moderate RIGHT hydroureteronephrosis to level the UVJ with mild circumferential soft tissue thickening of the RIGHT distal ureter. Tumor involvement of the distal ureter not excluded. No lymphadenopathy or other metastatic disease. 09/27/2023 Cystoscopy with TURBT ([facility]) Large bladder tumor much greater than 6 cm obstructing the right hemitrigone causing hydroureteronephrosis. 09/15/2023 CT abdomen/pelvis ([facility]) 5.3 x 4.7 cm enhancing lesion arising from the right urinary bladder wall as well as the base, resolving and possible invasion of right UV junction and right UV. Findings highly suspicious for urinary bladder neoplasm. Invasion of the prostate cannot be excluded. 09/08/2023 Bilateral renal ultrasound ([facility]) Marked hydronephrosis of the right kidney. Lobulated solid mass in the base of the bladder measuring 6.4 x 5.9 x 6 cm. Left kidney appears unremarkable and no hydronephrosis noted. ASSESSMENT/PLAN: 1. Malignant neoplasm of bladder (HCC) - ICD9: 188.8, ICD10: C67.8 (primary diagnosis) August 2023 the patient presented with hematuria and difficulty urinating. Renal ultrasound 09/08/2023 revealed significant right hydronephrosis with an apparent mass involving the right side of his bladder. CT abdomen/pelvis 09/15/2023 confirmed a 6 cm mass at the base of the right bladder. Initial cystoscopy 09/27/2023 revealed a large bladder tumor at the base of the bladder obstructing the right ureter. Status post TURBT 09/27/2023 followed by a second cystoscopy with resection of the residual tumor on 09/28/2023. Pathology on the resected specimen revealed invasive high-grade papillary urothelial carcinoma. Staging scans revealed no evidence of metastases. He was referred to [facility], and recommendations are to proceed with neoadjuvant chemotherapy followed by cystectomy. Options for management were discussed and NCCN guidelines were reviewed with the patient and his family. As recommended we will proceed with neoadjuvant chemotherapy consisting of cisplatin plus gemcitabine x 4 cycles. He will then be evaluated for cystectomy. The patient will return in 1 week to start treatment. 2. Hydronephrosis - ICD9: 591, ICD10: N13.30 Significant right hydronephrosis secondary to bladder tumor identified on initial ultrasound/CT scan. Improved after initial TURBT. Renal function improved after initial procedure. Will monitor labs and scans closely. Vicente Sanchez MD CC: Dr. Santiago documented in this encounter [facility] 10-16-2023 Note HNO ID: [id number] Author: VENKATESH SMALL MD Service: ? Author Type: Physician Type: Progress Notes Filed: 10/16/2023 09:06 Note Text: [facility] NEW PATIENT HISTORY AND PHYSICAL EXAM PATIENT INFO: Indra Olivarez 53 year old REFERRING M.D.: Dr. Santiago PCP: No primary care provider on file. Consultation requested by Dr. Santiago for an opinion regarding bladder cancer and my final recommendations will be communicated back to the requesting physician by way of shared medical record or letter via [place] mail. HPI 53 year old male w/h/o HLD, right hernia repair, former smoker referred for evaluation of newly diagnosed bladder cancer. History with Dr. Santiago as below: Renal US 09/08/23 - marked hydronephrosis of Right kidney, lobulated solid mass in the base of the bladder measuring 9x6 cm, post void residual 362mL. CT AP 09/15/23 - 5.3 enhancing lesion arising from the urinary bladder wall. Possible invasion of RT UV junction, sever Right hydroureteronephrosis. 09/28/23 TURBT: cT2HG 02/15/24 TURBT: cT2HG, >6cm in Right hemitrigone Reports full resection after second TURBT. Also told WBC was borderline on blood work but does not know baseline serum creatinine. Also does not know if he had stent placement with TURBT. Sexual function is not currently a priority but is interested in nerve sparing surgery if feasible. He had a detailed discussion with Dr. Santiago regarding options for urinary diversion and has read up on this and is considering an orthotopic neobladder. PATHOLOGY: As above LAB: No results found for: CREAT No results found for: PSA No results found for: COLOR , CLARITY , UGLUC , UBILI , UKET , SPGR , UHB , UPH , UPROT , UROBILINOGEN , NITRITES , LEUKEST IMAGING: As above ALLERGIES: ALLERGIES No Known Allergies MEDICATIONS: mirtazapine (REMERON) 30 mg tablet Take 30 mg by mouth daily at bedtime. HISTORIES No past medical history on file. No family history on file. No past surgical history on file. SOCIAL HISTORY REVIEW OF SYSTEMS General: No weight loss, malaise or fevers., SEE HPI Gastrointestinal: See HPI Genitourinary: No history of dysuria, frequency or incontinence The remainder of the ROS was reviewed and was negative. PHYSICAL EXAMINATION BP 122/86 Pulse 118 Temp 37.1 ?C (98.8 ?F) Wt 84.5 kg (186 lb 4.8 oz) SpO2 97% Constitutional: Well appearing, alert, in no acute distress, and well-hydrated, well nourished Gastrointestinal: non-distended Genitourinary: MALE EXAM: Exam NOT Indicated ASSESSMENT AND PLAN: Newly diagnosed muscle invasive bladder cancer At today's visit we had outside CT A/P report and pathology report but do not have images available for review nor do we have lab results and are unsure of Indra's baseline renal function. Of note outside imaging demonstrated right hydronephrosis raising the possibility of insufficiency. I reviewed treatment for muscle invasive bladder cancer and discussed the role of staging scans to rule out metastatic disease. We will schedule staging scans this week. I reviewed the role of neoadjuvant chemotherapy followed by radical cystectomy versus TMT for the management of muscle invasive disease. Given bulky disease with associated hydronephrosis, he has risk factors for failure with TMT and is prioritizing oncologic control. I have recommended blood work and CT chest to complete staging followed by medical oncology consultation which we will coordinate in [place]. If he is cisplatin ineligible based on renal function then I would encourage him to consider enrollment in a neoadjuvant trial for cisplatin ineligible patients. As it relates to radical cystectomy I discussed expectations perioperative and postoperative recovery and risk and benefits of surgery which include but are not limited to bleeding, infection, ileus, SBO, VTE, injury to adjacent organ, cardiopulmonary risk of general anesthesia. I reviewed expectations for post-operative recovery and QOL outcomes from large cystectomy series. I reviewed options for urinary diversion including ileal conduit, orthotopic neobladder, and continent cutaneous diversion. In reviewing the advantages and disadvantages of these options he is strongly leaning towards an orthotopic neobladder. We will provide our cystectomy guidebook for him to review as he continues to consider this. I discussed functional and quality of life outcomes following radical cystectomy and described the role of nerve sparing in optimizing functional recovery as it relates to erectile function. This not currently priority for him but may be still in the future and he would be interested in nerve sparing approach if feasible. I reviewed my practice of performing MRI bladder for surgical planning and determining eligibility after completing neoadjuvant systemic therapy. He had opportunity to ask quest (more content not included)... [facility] 10-16-2023 History of Present illness Narrative [facility] NEW PATIENT HISTORY AND PHYSICAL EXAM PATIENT INFO: Indra Chavarriah 53 year old REFERRING M.D.: Dr. Santiago PCP: No primary care provider on file. Consultation requested by Dr. Santiago for an opinion regarding bladder cancer and my final recommendations will be communicated back to the requesting physician by way of shared medical record or letter via [place] mail. HPI 53 year old male w/h/o HLD, right hernia repair, former smoker referred for evaluation of newly diagnosed bladder cancer. History with Dr. Santiago as below: Renal US 09/08/23 - marked hydronephrosis of Right kidney, lobulated solid mass in the base of the bladder measuring 9x6 cm, post void residual 362mL. CT AP 09/15/23 - 5.3 enhancing lesion arising from the urinary bladder wall. Possible invasion of RT UV junction, sever Right hydroureteronephrosis. 09/28/23 TURBT: cT2HG 09/27/23 TURBT: cT2HG, >6cm in Right hemitrigone Reports full resection after second TURBT. Also told WBC was borderline on blood work but does not know baseline serum creatinine. Also does not know if he had stent placement with TURBT. Sexual function is not currently a priority but is interested in nerve sparing surgery if feasible. He had a detailed discussion with Dr. Santiago regarding options for urinary diversion and has read up on this and is considering an orthotopic neobladder. PATHOLOGY: As above LAB: No results found for: CREAT No results found for: PSA No results found for: COLOR , CLARITY , UGLUC , UBILI , UKET , SPGR , UHB , UPH , UPROT , UROBILINOGEN , NITRITES , LEUKEST IMAGING: As above ALLERGIES: ALLERGIES No Known Allergies MEDICATIONS: mirtazapine (REMERON) 30 mg tablet Take 30 mg by mouth daily at bedtime. HISTORIES No past medical history on file. No family history on file. No past surgical history on file. SOCIAL HISTORY REVIEW OF SYSTEMS General: No weight loss, malaise or fevers., SEE HPI Gastrointestinal: See HPI Genitourinary: No history of dysuria, frequency or incontinence The remainder of the ROS was reviewed and was negative. PHYSICAL EXAMINATION BP 122/86 Pulse 118 Temp 37.1 C (98.8 F) Wt 84.5 kg (186 lb 4.8 oz) SpO2 97% Constitutional: Well appearing, alert, in no acute distress, and well-hydrated, well nourished Gastrointestinal: non-distended Genitourinary: MALE EXAM: Exam NOT Indicated ASSESSMENT & PLAN: Newly diagnosed muscle invasive bladder cancer At today's visit we had outside CT A/P report and pathology report but do not have images available for review nor do we have lab results and are unsure of Indra's baseline renal function. Of note outside imaging demonstrated right hydronephrosis raising the possibility of insufficiency. I reviewed treatment for muscle invasive bladder cancer and discussed the role of staging scans to rule out metastatic disease. We will schedule staging scans this week. I reviewed the role of neoadjuvant chemotherapy followed by radical cystectomy versus TMT for the management of muscle invasive disease. Given bulky disease with associated hydronephrosis, he has risk factors for failure with TMT and is prioritizing oncologic control. I have recommended blood work and CT chest to complete staging followed by medical oncology consultation which we will coordinate in [place]. If he is cisplatin ineligible based on renal function then I would encourage him to consider enrollment in a neoadjuvant trial for cisplatin ineligible patients. As it relates to radical cystectomy I discussed expectations perioperative and postoperative recovery and risk and benefits of surgery which include but are not limited to bleeding, infection, ileus, SBO, VTE, injury to adjacent organ, cardiopulmonary risk of general anesthesia. I reviewed expectations for post-operative recovery and QOL outcomes from large cystectomy series. I reviewed options for urinary diversion including ileal conduit, orthotopic neobladder, and continent cutaneous diversion. In reviewing the advantages and disadvantages of these options he is strongly leaning towards an orthotopic neobladder. We will provide our cystectomy guidebook for him to review as he continues to consider this. I discussed functional and quality of life outcomes following radical cystectomy and described the role of nerve sparing in optimizing functional recovery as it relates to erectile function. This not currently priority for him but may be still in the future and he would be interested in nerve sparing approach if feasible. I reviewed my practice of performing MRI bladder for surgical planning and determining eligibility after completing neoadjuvant systemic therapy. He had opportunity to ask questions which were answered to his satisfaction and wishes to proceed with NAC and RC. Will schedule staging scans, labs, Med Onc Consultation. Will provide our cystectomy guidebook and look to coordinate surgical date based on anticipated timing of completing neoadjuvant systemic therapy. MRI bladder will be obtained following neoadjuvant systemic therapy for surgical planning and to determine eligibility for nerve-sparing surgical approach. I spent a total of 55 minutes on the date of the service which included preparing to see the patient, [id number]-[id number] patient care, completing clinical documentation, and obtaining and/or reviewing separately obtained history. Visit complexity inherent to evaluation and management associated with medical care services that serve as the continuing focal point for all needed health care services and/or with medical care services that are part of ongoing care related to a patient s single, serious condition or a complex condition. By signing my name below, I, Gerber Roberts, attest that this documentation has been prepared under the direction and in the presence of Dr. Small Electronically signed, Jn Wilkerson STAFF PHYSICIAN NOTE OF PERSONAL INVOLVEMENT IN CARE The above noted history, physical, assessment and plan were reviewed with the provider and critical portions of the H&P were confirmed. I evaluated and examined the patient and agree with the plan above and provided direct supervision of the above provider during this patient's care. Venkatesh Small MD documented in this encounter [facility] 09-29-2023 Note Discharge paperwork and instructions explained to patient. Education regarding newly placed hager catheter, infection and pain control, follow up appointments, and when to contact the doctor provided. Patient verbalizes understanding and demonstrates how to switch leg bag over to overnight bag. Vital signs as documented. All belongings sent with patient. No further questions at this time. Patient transported downstairs to patient pick-up via wheelchair. [facility] 09-28-2023 Hospital Discharge instructions Patient Education 09/28/2023 18:44:39 Cystoscopy Cystoscopy Cystoscopy is a procedure that is used to help diagnose and sometimes treat conditions that affect the lower urinary tract. The lower urinary tract includes the bladder and the urethra. The urethra is the tube that drains urine from the bladder. Cystoscopy is done using a thin, tube-shaped instrument with a light and camera at the end (cystoscope). The cystoscope may be hard or flexible, depending on the goal of the procedure. The cystoscope is inserted through the urethra, into the bladder. Cystoscopy may be recommended if you have: Urinary tract infections that keep coming back. Blood in the urine (hematuria). An inability to control when you urinate (urinary incontinence) or an overactive bladder. Unusual cells found in a urine sample. A blockage in the urethra, such as a urinary stone. Painful urination. An abnormality in the bladder found during an intravenous pyelogram (IVP) or CT scan. Cystoscopy may also be done to remove a sample of tissue to be examined under a microscope (biopsy). Tell a health care provider about: Any allergies you have. All medicines you are taking, including vitamins, herbs, eye drops, creams, and dplq-umv-xomjfdm medicines. Any problems you or family members have had with anesthetic medicines. Any blood disorders you have. Any surgeries you have had. Any medical conditions you have. Whether you are or may be . What are the risks? Generally, this is a safe procedure. However, problems may occur, including: Infection. Bleeding. Allergic reactions to medicines. Damage to other structures or organs. What happens before the procedure? Medicines Ask your health care provider about: Changing or stopping your regular medicines. This is especially important if you are taking diabetes medicines or blood thinners. Taking medicines such as aspirin and ibuprofen. These medicines can thin your blood. Do not take these medicines unless your health care provider tells you to take them. Taking esye-myq-xvvvvkf medicines, vitamins, herbs, and supplements. Tests You may have an exam or testing, such as: X-rays of the bladder, urethra, or kidneys. CT scan of the abdomen or pelvis. Urine tests to check for signs of infection. General instructions Follow instructions from your health care provider about eating or drinking restrictions. Ask your health care provider what steps will be taken to help prevent infection. These steps may include: ?Washing skin with a germ-killing soap. ?Taking antibiotic medicine. Plan to have a responsible adult take you home from the hospital or clinic. What happens during the procedure? You will be given one or more of the following: ?A medicine to help you relax (sedative). ?A medicine to numb the area (local anesthetic). The area around the opening of your urethra will be cleaned. The cystoscope will be passed through your urethra into your bladder. Germ-free (sterile) fluid will flow through the cystoscope to fill your bladder. The fluid will stretch your bladder so that your health care provider can clearly examine your bladder mendoza. Your doctor will look at the urethra and bladder. Your doctor may take a biopsy or remove stones. The cystoscope will be removed, and your bladder will be emptied. The procedure may vary among health care providers and hospitals. What can I expect after the procedure? After the procedure, it is common to have: Some soreness or pain in your abdomen and urethra. Urinary symptoms. These include: ?Mild pain or burning when you urinate. Pain should stop within a few minutes after you urinate. This may last for up to 1 week. ?A small amount of blood in your urine for several days. ?Feeling like you need to urinate but producing only a small amount of urine. Follow these instructions at home: Medicines Take bssq-zqi-wrzqilf and prescription medicines only as told by your health care provider. If you were prescribed an antibiotic medicine, take it as told by your health care provider. Do not stop taking the antibiotic even if you start to feel better. General instructions Return to your normal activities as told by your health care provider. Ask your health care provider what activities are safe for you. If you were given a sedative during the procedure, it can affect you for several hours. Do not drive or operate machinery until your health care provider says that it is safe. Watch for any blood in your urine. If the amount of blood in your urine increases, call your health care provider. Follow instructions from your health care provider about eating or drinking restrictions. If a tissue sample was removed for testing (biopsy) during your procedure, it is up to you to get your test results. Ask your health care provider, or the department that is doing the test, when your results will be ready. Drink enough fluid to keep your urine pale yellow. Keep all follow-up visits. This is important. Contact a health care provider if: You have pain that gets worse or does not get better with medicine, especially pain when you urinate. You have trouble urinating. You have more blood in your urine. Get help right away if: You have blood clots in your urine. You have abdominal pain. You have a fever or chills. You are unable to urinate. Summary Cystoscopy is a procedure that is used to help diagnose and sometimes treat conditions that affect the lower urinary tract. Cystoscopy is done using a thin, tube-shaped instrument with a light and camera at the end. After the procedure, it is common to have some soreness or pain in your abdomen and urethra. Watch for any blood in your urine. If the amount of blood in your urine increases, call your health care provider. If you were prescribed an antibiotic medicine, take it as told by your health care provider. Do not stop taking the antibiotic even if you start to feel better. This information is not intended to replace advice given to you by your health care provider. Make sure you discuss any questions you have with your health care provider. Document Revised: 04/12/2022 Document Reviewed: 03/11/2021 [employer] Patient Education 2022 [employer] 09/28/2023 18:44:32 Managing Depression, Adult Managing Depression, Adult Depression is a mental health condition that affects your thoughts, feelings, and actions. Being diagnosed with depression can bring you relief if you did not know why you have felt or behaved a certain way. It could also leave you feeling overwhelmed with uncertainty about your future. Preparing yourself to manage your symptoms can help you feel more positive about your future. How to manage lifestyle changes Managing stress Stress is your body's reaction to life changes and events, both good and bad. Stress can add to your feelings of depression. Learning to manage your stress can help lessen your feelings of depression. Try some of the following approaches to reducing your stress (stress reduction techniques): Listen to music that you enjoy and that inspires you. Try using a meditation marilyn or take a meditation class. Develop a practice that helps you connect with your spiritual self. Walk in nature, pray, or go to a place of [place]. Do some deep breathing. To do this, inhale slowly through your nose. Pause at the top of your inhale for a few seconds and then exhale slowly, letting your muscles relax. Practice yoga to help relax and work your muscles. Choose a stress reduction technique that suits your lifestyle and personality. These techniques take time and practice to develop. Set aside 5 15 minutes a day to do them. Therapists can offer training in these techniques. Other things you can do to manage stress include: Keeping a stress diary. Knowing your limits and saying no when you think something is too much. Paying attention to how you react to certain situations. You may not be able to control everything, but you can change your reaction. Adding humor to your life by watching funny films or TV shows. Making time for activities that you enjoy and that relax you. Medicines Medicines, such as antidepressants, are often a part of treatment for depression. Talk with your pharmacist or health care provider about all the medicines, supplements, and herbal products that you take, their possible side effects, and what medicines and other products are safe to take together. Make sure to report any side effects you may have to your health care provider. Relationships Your health care provider may suggest family therapy, couples therapy, or individual therapy as part of your treatment. How to recognize changes Everyone responds differently to treatment for depression. As you recover from depression, you may start to: Have more interest in doing activities. Feel less hopeless. Have more energy. Overeat less often, or have a better appetite. Have better mental focus. It is important to recognize if your depression is not getting better or is getting worse. The symptoms you had in the beginning may return, such as: Tiredness (fatigue) or low energy. Eating too much or too little. Sleeping too much or too little. Feeling restless, agitated, or hopeless. Trouble focusing or making decisions. Unexplained physical complaints. Feeling irritable, angry, or aggressive. If you or your family members notice these symptoms coming back, let your health care provider know right away. Follow these instructions at home: Activity Try to get some form of exercise each day, such as walking, biking, swimming, or lifting weights. Practice stress reduction techniques. Engage your mind by taking a class or doing some volunteer work. Lifestyle Get the right amount and quality of sleep. Cut down on using caffeine, tobacco, alcohol, and other potentially harmful substances. Eat a healthy diet that includes plenty of vegetables, fruits, whole grains, low-fat dairy products, and lean protein. Do not eat a lot of foods that are high in solid fats, added sugars, or salt (sodium). General instructions Take qkco-een-rsgyymp and prescription medicines only as told by your health care provider. Keep all follow-up visits as told by your health care provider. This is important. Where to find support Talking to others Friends and family members can be sources of support and guidance. Talk to trusted friends or family members about your condition. Explain your symptoms to them, and let them know that you are working with a health care provider to treat your depression. Tell friends and family members how they also can be helpful. Finances Find appropriate mental health providers that fit with your financial situation. Talk with your health care provider about options to get reduced prices on your medicines. Where to find more information You can find support in your area from: Anxiety and Depression Association of [place] (ADAA): www.adaa.org Mental Health [place]: www.mentalhealthamerica.net National [place] on Mental Illness: www.leleee.org Contact a health care provider if: You stop taking your antidepressant medicines, and you have any of these symptoms: ?Nausea. ?Headache. ?Light-headedness. ?Chills and body aches. ?Not being able to sleep (insomnia). You or your friends and family think your depression is getting worse. Get help right away if: You have thoughts of hurting yourself or others. If you ever feel like you may hurt yourself or others, or have thoughts about taking your own life, get help right away. Go to your nearest emergency department or: Call your local emergency services (911 in the [place] Call a suicide crisis helpline, such as the National Suicide Prevention Lifeline at or 125 in the [place] This is open 24 hours a day in the [place] Text the Crisis Text Line at 991253 (in the [place] Summary If you are diagnosed with depression, preparing yourself to manage your symptoms is a good way to feel positive about your future. Work with your health care provider on a management plan that includes stress reduction techniques, medicines (if applicable), therapy, and healthy lifestyle habits. Keep talking with your health care provider about how your treatment is working. If you have thoughts about taking your own life, call a suicide crisis helpline or text a crisis text line. This information is not intended to replace advice given to you by your health care provider. Make sure you discuss any questions you have with your health care provider. Document Revised: 02/22/2022 Document Reviewed: 06/09/2020 [employer] Patient Education 2022 [employer]. 09/28/2023 18:44:19 Hager Catheter Care, Male-[facility](CUSTOM) Hager Catheter Care, Male A Hager catheter is a soft, flexible tube that is placed into the bladder to drain urine. The catheter has a balloon to hold it inside the bladder. A Hager catheter may be inserted if: You leak urine or are not able to control when you urinate (urinary incontinence). You are not able to urinate when you need to (urinary retention). You had prostate surgery or surgery on the genitals. You have certain medical conditions, such as multiple sclerosis, dementia, or a spinal cord injury. To Prevent Infection: 1. Wash your hands with soap and water before and after handling your catheter. 2. Using mild soap and warm water on a clean washcloth; twice a day. Clean the area on your body closest to the catheter insertion site using a circular motion, moving away from the catheter. Never wipe toward the catheter because this could sweep bacteria up into the urethra and cause infection. Remove all traces of soap. Pat the area dry with a clean towel and reposition the foreskin. No tub baths. No lotions, powders, or sprays unless directed by your physician. 3. Keep the tube secure. Do not let the tube pull or catch when you are moving around. Attach the catheter to your leg so there is no tension on the catheter. Use adhesive tape or a leg strap. If you are using adhesive tape, remove any sticky residue left behind by the previous tape you used. 4. Replace wet leg straps with dry ones. 5. Wear cotton underwear to absorb moisture and keep leather drier. 6. Keep the drainage bag below the level of the bladder, but keep it off the floor. 7. Check throughout the day to be sure the catheter is working and urine is draining freely. Make sure the tubing does not become kinked or looped. 8. Do not pull on the catheter or try to remove it. Pulling could damage internal tissues. TAKING CARE OF THE DRAINAGE BAGS You will be given two drainage bags to take home. One is a large overnight drainage bag, and the other is a smaller leg bag that fits underneath clothing. You may wear the overnight bag at any time, but you should never wear the smaller leg bag at night, unless directed by your physician. Follow the instructions below for how to empty and change your drainage bags. Emptying the Drainage Bag You must empty your drainage bag when it is ? full. 1. Wash your hands with soap and water before and after handling your catheter. 2. Keep the drainage bag below your hips, below the level of your bladder. This stops urine from going back into the tubing and into your bladder. 3. Hold the dirty bag over the toilet or a clean container. 4. Open the pour spout at the bottom of the bag and empty the urine into the toilet or container. Do not let the pour spout touch the toilet, container, or any other surface. Doing so can place bacteria on the bag, which can cause an infection. 5. Clean the pour spout with a gauze pad or cotton ball that has rubbing alcohol on it. 6. Close the pour spout. 7. Attach the bag to your leg with adhesive tape or a leg strap. Changing the Drainage Bag 1. Wash your hands with soap and water before and after handling your catheter. 2. Pinch off the rubber catheter so that urine does not spill out. 3. Disconnect the catheter tube from the drainage tube at the connection valve. Do not let the tubes touch any surface. 4. Clean the end of the catheter tube with an alcohol wipe. Use a different alcohol wipe to clean the end of the drainage tube. 5. Connect the catheter tube to the drainage tube of the clean drainage bag. 6. Attach the new bag to the leg with adhesive tape or a leg strap. Avoid attaching the new bag too tightly. 7. Place a cap on the drainage bag not in use and store in a clean towel. SEEK MEDICAL CARE IF: Your urine is cloudy or smells. Your catheter starts to leak. Your catheter falls out or is pulled out. You have pain, swelling, redness, or pus where the catheter enters the body. You have pain in the abdomen, legs, lower back, or bladder. You have a fever of 100.4 F (38 C) or higher You see pink, red, dark, coffee colored, or pus-like urine. You have nausea, vomiting, or chills. You are not feeling better in 2 to 3 days or you are feeling worse. You are not draining urine into the bag or your bladder feels full. MAKE SURE YOU: Understand the reason you have the catheter. Understand and follow these instructions to care for the catheter. Will watch your condition. Drink 6-8 glasses of water or liquids per day to keep your urine clear. Avoid Caffeinated drinks. They can irritate the bladder and cause bladder spasms. Keep your follow up appointments and call with any concerns. 09/28/2023 18:44:17 Indwelling Urinary Catheter Care, Adult Indwelling Urinary Catheter Care, Adult An indwelling urinary catheter is a thin, flexible tube that is placed into the bladder to help drain urine out of the body. The catheter is inserted into the urethra. The urethra is the part of the body that drains urine from the bladder. Urine drains from the catheter into a drainage bag outside of the body. Taking good care of your catheter will keep it working properly and help to prevent problems from developing. What are the risks? Bacteria may get into your bladder and cause a urinary tract infection. Urine flow can become blocked. This can happen if the catheter is not working correctly, or if you have sediment or a blood clot in your bladder or catheter. Tissue near the catheter may become irritated and may bleed. How to wear your catheter and your drainage bag Supplies needed Adhesive tape or a leg strap. Alcohol wipe or soap and water (if you use tape). A clean towel (if you use tape). Overnight drainage bag. Smaller drainage bag (leg bag). Wearing your catheter and bag Use adhesive tape or a leg strap to attach your catheter to your leg. Make sure the catheter is not pulled tight. If a leg strap gets wet, replace it with a dry one. If you use adhesive tape: 1.Use an alcohol wipe or soap and water to wash off any stickiness on your skin where you had tape before. 2.Use a clean towel to pat-dry the area. 3.Apply the new tape. You should have received a large overnight drainage bag and a smaller leg bag that fits underneath clothing. You may wear the overnight bag at any time, but you should not wear the leg bag at night. Make sure the overnight drainage bag is always lower than the level of your bladder, but do not let it touch the floor. Before you go to sleep, hang the bag inside a wastebasket that is covered by a clean plastic bag. Secure the leg bag according to blast setter's instructions. This may be above or below the knee, depending on the length of the tubing. Make sure that: ?The leg bag is below the bladder. ?The tubing does not have loops or too much tension. How to care for the skin around the catheter Supplies needed A clean washcloth. Water and mild soap. A clean towel. Caring for your skin and catheter Every day, use a clean washcloth and soapy water to clean the skin around your catheter. 1.Wash your hands with soap and water. 2.Wet a washcloth in warm water and mild soap. 3.Clean the skin around your urethra. ?If you are female: ?Use one hand to gently spread the folds of skin around your vagina (labia). ?With the washcloth in your other hand, wipe the inner side of your labia on each side. Do this in a [id number]-tc-yfim direction. ?If you are male: ?Use one hand to pull back any skin that covers the end of your penis (foreskin). ?With the washcloth in your other hand, wipe your penis in small circles. Start wiping at the tip of your penis, then move outward from the catheter. ?Move the foreskin back in place, if needed. 4.With your free hand, hold the catheter close to where it enters your body. Keep holding the catheter during cleaning so it does not get pulled out. 5.Use your other hand to clean the catheter with the washcloth. ?Only wipe downward on the catheter, toward the bag. ?Do not wipe upward toward your body, because that may push bacteria into your urethra and cause infection. 6.Use a clean towel to pat-dry the catheter and the skin around it. Make sure to wipe off all soap. 7.Wash your hands with soap and water. Shower every day. Do not take baths. Do not use cream, ointment, or lotion on the area where the catheter enters your body, unless your health care provider tells you to do that. Do not use powders, sprays, or lotions on your genital area. Check your skin around the catheter every day for signs of infection. Check for: ?Redness, swelling, or pain. ?Fluid or blood. ?Warmth. ?Pus or a bad smell. How to empty the drainage bag Supplies needed Rubbing alcohol. Gauze pad or cotton ball. Adhesive tape or a leg strap. Emptying the bag Empty your drainage bag (your overnight drainage bag or your leg bag) when it is ? full, or at least 2 3 times a day. Clean the drainage bag according to the blast setter's instructions or as told by your health care provider. 1.Wash your hands with soap and water. 2.Detach the drainage bag from your leg. 3.Hold the drainage bag over the toilet or a clean container. Make sure the drainage bag is lower than your hips and bladder. This stops urine from going back into the tubing and into your bladder. 4.Open the pour spout at the bottom of the bag. 5.Empty the urine into the toilet or container. Do not let the pour spout touch any surface. This precaution is important to prevent bacteria from getting in the bag and causing infection. 6.Apply rubbing alcohol to a gauze pad or cotton ball. 7.Use the gauze pad or cotton ball to clean the pour spout. 8.Close the pour spout. 9.Attach the bag to your leg with adhesive tape or a leg strap. 10.Wash your hands with soap and water. How to change the drainage bag Supplies needed: Alcohol wipes. A clean drainage bag. Adhesive tape or a leg strap. Changing the bag Replace your drainage bag with a clean bag if it leaks, starts to smell bad, or looks dirty. 1.Wash your hands with soap and water. 2.Detach the dirty drainage bag from your leg. 3.Pinch the catheter with your fingers so that urine does not spill out. 4.Disconnect the catheter tube from the drainage tube at the connection valve. Do not let the tubes touch any surface. 5.Clean the end of the catheter tube with an alcohol wipe. Use a different alcohol wipe to clean the end of the drainage tube. 6.Connect the catheter tube to the drainage tube of the clean bag. 7.Attach the clean bag to your leg with adhesive tape or a leg strap. Avoid attaching the new bag too tightly. 8.Wash your hands with soap and water. General instructions Never pull on your catheter or try to remove it. Pulling can damage your internal tissues. Always wash your hands before and after you handle your catheter or drainage bag. Use a mild, fragrance-free soap. If soap and water are not available, use hand international trade compliance manager. Always make sure there are no twists, bends, or kinks in the catheter tube. Always make sure there are no leaks in the catheter or drainage bag. Drink enough fluid to keep your urine pale yellow. Do not take baths, swim, or use a hot tub. If you are female, wipe from front to back after having a bowel movement. Contact a health care provider if: Your catheter gets clogged. Your catheter starts to leak. You have signs of infection at the catheter site, such as: ?Redness, swelling, or pain where the catheter enters your body. ?Fluid, blood, pus, or a bad smell coming from the area where the catheter enters your body. ?The area where the catheter enters your body feels warm to the touch. You have signs of a urinary tract infection, such as: ?Fever or chills. ?Urine smells unusually bad. ?Cloudy urine. ?Pain in your abdomen, legs, lower back, or bladder. ?Nausea or vomiting. Get help right away if: You see blood in the catheter. Your urine is pink or red. Your bladder feels full. Your urine is not draining into the bag. Your catheter gets pulled out. Summary An indwelling urinary catheter is a thin, flexible tube that is placed into the bladder to help drain urine out of the body. The catheter is inserted into the part of the body that drains urine from the bladder (urethra). Take good care of your catheter to keep it working properly and help prevent problems from developing. Always wash your hands before and after you handle your catheter or drainage bag. Never pull on your catheter or try to remove it. This information is not intended to replace advice given to you by your health care provider. Make sure you discuss any questions you have with your health care provider. Document Revised: 03/30/2022 Document Reviewed: 03/30/2022 [employer] Patient Education 2022 [employer] Follow Up Care 09/27/2023 08:51:32 With:Sonny SANTIAGO Address: [facility] [address], [place] [address]- Business (1) When:10/04/2023 16:51:17 [facility] 09-28-2023 Evaluation + Plan note Extrac leah from: Title:APSO Note Author:LASHANDA WINTER-Caroline GUTIERREZ ate:09/28/23 1. Bladder mass (N32.89: Oth er specified disorders of bladder) S/p transurethral resection of bladder tumor 2/2 massive bladder tumor volume obliterating the right hemitrigone performed and managed by Dr. Santiago -Trend labs -Pain mgt. -Education: Oral pain med regimen, I.S. and bowel regimen to avoid constipation Thank you for the opportunity to assist in the mgt. of your patient 2. Elevated serum creatinine (R79.89: Other specified abnormal findings of blood chemistry) Baseline Cr - unknown baseline -Hold LEWIS/ARB, PPI, -UA - pending -Renal US & PVR - if Cr worsens -Consult nephrology - if Cr worsens -IVF 1L to date -Trend BMP -Avoid nephrotoxic medications as much as possible 3. Depression (F32.A: Depression, unspecified) Stable, denies SI/HI -Mirtazapine 4. On deep vein thrombosis (DVT) prophylaxis (Z79.899: Other terminal operations supervisor (current) drug therapy) Defer to urology -SCDs, early ambulation Orders: cephalexin, 500 mg = 1 cap(s), Cap, Oral, q12hr, Routine, Start date 09/28/23 8:00:00 EST, 09/28/23 7:34:00 EST Basic Metabolic Panel Below the Knee Intermittent Pneumatic Compression Device CBC w/ Auto Diff eGFR UA With Cult Reflex -Plan discussed w/ patient, nursing staff and CRM. This report was transcribed using voice recognition software. Every effort was made to ensure accuracy, however, inadvertently computerized photographer's assistant mistakes may be present. Extracted from: Title:ANES Post-operative Note---General Author: Neil Zimmer Jr, DO Date:09/28/23 Plan Transfer/Discharge: Transfer/Discharge Discharge when meets criteria ( To home ). Extracted from: Title:Consult Note Author:Chelo FALL DO Date:09/27/23 1. Depression (F32.A: Depres nilsa, unspecified) Continue mirtazapine 30 mg p.o. nightly. 2. Bladder mass (N32.89: Other specified disorders of bladder) Management per urology 3. On deep vein thrombosis (DVT) prophylaxis (Z79.899: Other terminal operations supervisor (current) drug therapy) SCD, early ambulation Orders: acetaminophen, 650 mg = 2 tab(s), Tab, Oral, q4hr PRN Pain/Fever for 30 day(s), Stop date 10/27/23 22:00:00 EDT, Routine, Start date 09/27/23 22:01:00 EST, 09/27/23 22:01:00 EST mirtazapine, 30 mg = 2 tab(s), Tab, Oral, Bedtime, NOW, Start date 09/27/23 21:59:00 EST, 09/27/23 21:59:00 EST ondansetron, 4 mg = 2 mL, Injection, IV Push, q6hr PRN Nausea/Vomiting, Routine, Start date 09/27/23 22:01:00 EST, 09/27/23 22:01:00 EST Anticipated stay less than 2 midnights. Patient will be observation status. Extracted from: Title:ANES Pre-operative Note 2022 Author:Neil Zimmer Jr, DO Date:09/27/23 Plan [place] [employer]esthesi[employer] (ASA) physical status classification: Class II. Anesthetic Preoperative Plan: Anesthesia General. Future Appointments Appointment Date:10/08/2023 09:45:00 AM Scheduled Provider:Sonny SANTIAGO MD Location:[facility] Appointment Type:URO Office Visit Diagnostic Tests Pending * UA With Cult Reflex 09/28/23 [facility]02-16-2024 NoteChief Complaint Bladder tumor resection Reason for Consultation Requesting physician: Dr. Santiago Medical management of depression History of Present Illness Patient is a 53-year-old male with past medical history as noted below comes in with above-stated chief complaint. Patient had elective cystoscopy with transurethral resection of bladder tumor done by Dr. Santiago on 09/27/2023. Patient is being observed in the hospital overnight with continuous bladder irrigation. We are asked to see patient for medical management. At time of my exam patient feels at his baseline state of health. Denies any fevers, chills, nausea, vomiting, diarrhea, constipation. Patient has some soreness in his groin and penis when he coughs but otherwise feels okay. Patient denies any recent chest pain, shortness of breath, headache, vision changes. Review of Systems 14 Systems reviewed and negative except as noted in HPI. Physical Exam Vitals & Measurements T: 36.3 ?C(Temporal Artery) TMIN: 36.2 ?C(Temporal Artery) TMAX: 36.6 ?C(Temporal Artery) HR: 65(Monitored) RR: 18 BP: 131/90 SpO2: 97% HT: 178.5 cm HT: 178.5 cm WT: 81 kg WT: 81 kg General: alert, no acute distress Skin: warm, dry Head: no trauma, normocephalic Neck: Trachea midline, no adenopathy, no tenderness Eye: normal conjunctiva, sclera clear ENMT: oral mucosa moist, no pharyngeal erythema or exudate. hearing grossly intact Cardiovascular: regular rate and rhythm, no murmur/gallop/rub Respiratory: Lungs CTA, respirations non labored , no w/r/r Gastrointestinal: Positive bowel sound, soft, non distended, no tenderness, no guarding. Genitourinary: Three-way Hager in place with clear red-tinged urine. Extremities: no deformity, no trauma Osteopathic: Deferred due to being noncontributory to current case. Neurological: oriented x 4, LOC appropriate for age, CN II-XII intact, motor strength equal & normal bilaterally, sensation equal & normal bilaterally, speech normal Psychiatric: cooperative, affect appropriate for age, normal judgement, normal psychiatric thoughts. Assessment/Plan 1. Depression (F32.A: Depression, unspecified) Continue mirtazapine 30 mg p.o. nightly. 2. Bladder mass (N32.89: Other specified disorders of bladder) Management per urology 3. On deep vein thrombosis (DVT) prophylaxis (Z79.899: Other terminal operations supervisor (current) drug therapy) SCD, early ambulation Orders: acetaminophen, 650 mg = 2 tab(s), Tab, Oral, q4hr PRN Pain/Fever for 30 day(s), Stop date 10/27/23 22:00:00 EDT, Routine, Start date 09/27/23 22:01:00 EST, 09/27/23 22:01:00 EST mirtazapine, 30 mg = 2 tab(s), Tab, Oral, Bedtime, NOW, Start date 09/27/23 21:59:00 EST, 09/27/23 21:59:00 EST ondansetron, 4 mg = 2 mL, Injection, IV Push, q6hr PRN Nausea/Vomiting, Routine, Start date 09/27/23 22:01:00 EST, 09/27/23 22:01:00 EST Anticipated stay less than 2 midnights. Patient will be observation status. Problem List/Past Medical History Ongoing Bladder mass BPH with obstruction/lower urinary tract symptoms Depression Former smoker Gross hematuria High cholesterol Hydronephrosis Incomplete bladder emptying Historical No qualifying data Procedure/Surgical History Cystoscopy (09/27/2023), Colonoscopy, Excision, History of hernia repair. Medications Inpatient ketorolac 30 mg/mL Inj 1 mL, 30 mg= 1 mL, IV Push, q6hr, PRN mirtazapine 15 mg Tab, 30 mg= 2 tab(s), Oral, Bedtime promethazine additive 12.5 mg + Sodium Chloride 0.9% IV Yoselin 50 mL (INT) 50 mL Tylenol 325 mg Tab, 650 mg= 2 tab(s), Oral, q4hr, PRN Zofran 4 mg/2 mL Injection, 4 mg= 2 mL, IV Push, q6hr, PRN Home cephalexin 500 mg Cap, 500 mg= 1 cap(s), Oral, q12hr mirtazapine 30 mg Tab, 30 mg= 1 tab(s), Oral, Once a day (at bedtime) oxybutynin 10 mg ER Tab, 10 mg= 1 tab(s), Oral, Daily Allergies No Known Medication Allergies Social History Alcohol - Denies Alcohol Use, 09/27/2023 Substance Abuse - Denies Substance Abuse, 09/27/2023 Tobacco Former smoker, quit more than 30 days ago Tobacco Use:. Smokeless tobacco user within last 30 days Smokeless Tobacco Use:. Cigarettes, Oral, Yes, 09/18/2023 Family History Cancer: Mother. Heart disease: Father. High cholesterol: Father. Immunizations Vaccine Date Status Comments influenza virus vaccine, inactivated - Not Given Postpone due to refusal influenza virus vaccine, inactivated 06/02/2021 Recorded SARS-CoV-2 (COVID-19) mRNA BNT-162b2 vax 12/04/2020 Recorded 2023-09-18: TPV40 SARS-CoV-2 (COVID-19) mRNA BNT-162b2 vax 11/12/2020 Recorded 2023-09-18: TPV40 [facility]Result Comment: Electronically Signed By: Chelo FALL DO\Date and Time Signed: 09/27/23 22:17 EST 09-27-2023 [id number] [facility]* Diagnosis Malignant neoplasm of urinary bladder, unspecified site (HCC)- [facility] Diagnosis Malignant neoplasm of trigone of urinary bladder (HCC)- Primary Malignant neoplasm of trigone of urinary bladder Other hydronephrosis [facility] Diagnosis Hydronephrosis, unspecified hydronephrosis type- Primary Hydronephrosis, unspecified hydronephrosis type documented [facility] Diagnosis Hydronephrosis, unspecified hydronephrosis type- Primary Hydronephrosis, unspecified hydronephrosis type documented [facility] Diagnosis Malignant neoplasm of trigone of urinary bladder (HCC)- Primary Malignant neoplasm of trigone of urinary bladder Hydronephrosis, unspecified hydronephrosis type [facility] Diagnosis Malignant neoplasm of trigone of urinary bladder (HCC)- Primary Malignant neoplasm of trigone of urinary bladder [facility] Diagnosis Malignant neoplasm of trigone of urinary bladder (HCC)- Primary Malignant neoplasm of trigone of urinary bladder Other hydronephrosis [facility] Diagnosis Malignant neoplasm of trigone of urinary bladder (HCC)- Primary Malignant neoplasm of trigone of urinary bladder [facility] Diagnosis Malignant neoplasm of trigone of urinary bladder (HCC)- Primary Malignant neoplasm of trigone of urinary bladder [facility] Narrative No data available for this section [facility] No data available for this section [facility] Summary Purpose Family History No Family History Records Found No data available for this section No Family History Records FoundNo Family History Records FoundNo Family History Records Found Advance Directives No Advanced Directives Records FoundNo Advanced Directives Records FoundNo Advanced Directives Records FoundNo Advanced Directives Records Found Reason for Referral Specialty Diagnoses / Procedures Referred By Jasmyne t Referred To Contact Oncology Diagnoses Malignant neoplasm of urinary bladder, unspecified site (HCC) Procedures CONSULT TO ONCOLOGY OFFICE/OUTPATIENT [facility] 60 MINUTES Venkatesh Small MD [address] [id number] Referral ID Status Reason Start Date Expiration Date Visits Requested Visits Authorized [id number] Authorized PCP Requested Referral 10/16/2023 10/15/2024 1 1 Specialty Diagnoses / Procedures Referred By Jasmyne zhang Referred To Contact CT IMAGING Diagnoses Malignant neoplasm of urinary bladder, unspecified site (HCC) Procedures CT UROGRAM WO/W IVCON CT ABD & PELVIS W/WO CONTRST 1+ BODY REGNS Venkatesh Small MD [address] [place] [address] [facility] [place] [address] Referral ID Status Reason Start Date Expiration Date Visits Requested Visits Authorized [id number] Authorized Auto-Generat ed Referral 10/30/2023 11/14/2024 1 1 Specialty Diagnoses / Procedures Referred By Jasmyne t Referred To Contact CT IMAGING Diagnoses Malignant neoplasm of urinary bladder, unspecified site (HCC) Procedures CT CHEST W IVCON DIAGNOSTIC COMPUTED TOMOGRAPHY THORAX W/CONTRAST Venkatesh Small MD [address] [place] [address] [place] [address] Referral ID Status Reason Start Date Expiration Date Visits Requested Visits Authorized [id number] Authorized Auto-Generat ed Referral 10/30/2023 11/14/2024 1 1 Additional Source Comments (unrecognized sect ion and content) No Status Records FoundNo Status Records FoundNo Status Records FoundNo Status Records Found INFORMATION SOURCE (unrecogn ized section and content) DATE CREATED AUTHOR 06/29/2022 [facility] DATE CREATED AUTHOR AUTHOR'S ORGANIZ ATION 10/26/2023 [facility] DATE CREATED AUTHOR AUTHOR'S ORGANIZ ATION 11/03/2023 [facility] DATE CREATED AUTHOR AUTHOR'S ORGANIZ ATION 11/12/2023 [facility] Patient Care team informatio n (unrecognized section and content) Helpdesk Administrator Relationship Specialty Start Date End Date Fermín Villarreal, SHRINKING MACHINE OPERATOR.AQUACULTURE AND FISHERIES PROFESSOR [address] [facility] [place] [address] Nurse Practitioner Hematology/Oncology 10/24/23 Vicente Sanchez MD [address] [place] [address] [place] [address] Physician Hematology/Oncology 10/24/23 Italia Springer, BEV [address] [facility] [place] [address] Specialty Nuclear Radiation Engineer Hematology/Oncology 10/24/23 Helpdesk Administrator Relationship Specialty Start Date End Date Fermín Villarreal, SHRINKING MACHINE OPERATOR.AQUACULTURE AND FISHERIES PROFESSOR [address] [facility] [place] [address] Nurse Practitioner Hematology/Oncology 10/24/23 Vicente Sanchez MD [address] [facility] [place] [address] Physician Hematology/Oncology 10/24/23 Italia Springer, BEV [address] [facility] [place] [address] Specialty Nuclear Radiation Engineer Hematology/Oncology 10/24/23 Helpdesk Administrator Relationship Specialty Start Date End Date Fermín Villarreal, SHRINKING MACHINE OPERATOR.AQUACULTURE AND FISHERIES PROFESSOR [address] [facility] [place] [address] Nurse Practitioner Hematology/Oncology 10/24/23 Vicente Sanchez MD [address] [facility] [place] [address] Physician Hematology/Oncology 10/24/23 Italia Springer RN [address] [facility] [place] [address] Specialty Nuclear Radiation Engineer Hematology/Oncology 10/24/23 Helpdesk Administrator Relationship Specialty Start Date End Date Sayra Whitfield MD [address] [place] [address] PCP - General Family Medicine 10/29/23 Fermín Villarreal, SHRINKING MACHINE OPERATOR.AQUACULTURE AND FISHERIES PROFESSOR [address] [facility] [place] [address] Nurse Practitioner Hematology/Oncology 10/24/23 Vicente Sanchez MD [address] [facility] [place] [address] Physician Hematology/Oncology 10/24/23 Italia Springer, BEV [address] [facility] [place] [address] Specialty Nuclear Radiation Engineer Hematology/Oncology 10/24/23 Helpdesk Administrator Relationship Specialty Start Date End Date Sayra Whitfield MD [address] [place] [address] PCP - General Family Medicine 10/29/23 Fermín Villarreal, SHRINKING MACHINE OPERATOR.AQUACULTURE AND FISHERIES PROFESSOR [address] [facility] [place] [address] Nurse Practitioner Hematology/Oncology 10/24/23 Vicente Sanchez MD [address] [facility] [place] [address] Physician Hematology/Oncology 10/24/23 Italia Springer, BEV [address] [facility] [place] [address] Specialty Nuclear Radiation Engineer Hematology/Oncology 10/24/23 Helpdesk Administrator Relationship Specialty Start Date End Date Sayra Whitfield MD [address] [place] [address] PCP - General Family Medicine 10/29/23 Fermín Villarreal, SHRINKING MACHINE OPERATOR.AQUACULTURE AND FISHERIES PROFESSOR [address] [facility] [place] [address] Nurse Practitioner Hematology/Oncology 10/24/23 Vicente Sanchez MD [address] [facility] [place] [address] Physician Hematology/Oncology 10/24/23 Italia Springer, BEV [address] [facility] [place] [address] Specialty Nuclear Radiation Engineer Hematology/Oncology 10/24/23 Helpdesk Administrator Relationship Specialty Start Date End Date Sayra Whitfield MD [address] [place] [address] PCP - General Family Medicine 10/29/23 Fermín Villarreal, SHRINKING MACHINE OPERATOR.AQUACULTURE AND FISHERIES PROFESSOR [address] [facility] [place] [address] Nurse Practitioner Hematology/Oncology 10/24/23 Vicente Sanchez MD [address] [facility] [place] [address] Physician Hematology/Oncology 10/24/23 Italia Springer, RN [address] [facility] [place] [address] Specialty Nuclear Radiation Engineer Hematology/Oncology 10/24/[address] [facility] [place] [address] Registered Dietitian Nutrition 11/05/23 Helpdesk Administrator Relationship Specialty Start Date End Date Sayra Whitfield MD [address] [place] [address] PCP - General Family Medicine 10/29/23 Fermín Villarreal, SHRINKING MACHINE OPERATOR.AQUACULTURE AND FISHERIES PROFESSOR [address] [facility] [place] [address] Nurse Practitioner Hematology/Oncology 10/24/23 Vicente Sanchez MD [address] [facility] [place] [address] Physician Hematology/Oncology 10/24/23 Italia Springer, BEV [address] [facility] [place] [address] Specialty Nuclear Radiation Engineer Hematology/Oncology 10/24/[address] [facility] [place] [address] Registered Dietitian Nutrition 11/05/23 Helpdesk Administrator Relationship Specialty Start Date End Date Sayra Whitfield MD [address] [place] [address] PCP - General Family Medicine 10/29/23 Fermín Villarreal, SHRINKING MACHINE OPERATOR.AQUACULTURE AND FISHERIES PROFESSOR [address] [facility] [place] [address] Nurse Practitioner Hematology/Oncology 10/24/23 Vicente Sanchez MD [address] [facility] [place] [address] Physician Hematology/Oncology 10/24/23 Italia Springer, RN [address] [facility] [place] [address] Specialty Nuclear Radiation Engineer Hematology/Oncology 10/24/[address] [facility] [place] [address] Registered Dietitian Nutrition 11/05/23 Helpdesk Administrator Relationship Specialty Start Date End Date Sayra Whitfield MD [address] [place] [address] PCP - General Family Medicine 10/29/23 Fermín Villarreal, SHRINKING MACHINE OPERATOR.AQUACULTURE AND FISHERIES PROFESSOR [address] [facility] [place] [address] Nurse Practitioner Hematology/Oncology 10/24/23 Vicente Sanchez MD [address] [facility] [place] [address] Physician Hematology/Oncology 10/24/23 Italia Springer, RN [address] [facility] [place] [address] Specialty Nuclear Radiation Engineer Hematology/Oncology 10/24/[address] [facility] [place] [address] Registered Dietitian Nutrition 11/05/23 Helpdesk Administrator Relationship Specialty Start Date End Date Sayra Whitfield MD [address] [place] [address] PCP - General Family Medicine 10/29/23 Fermín Villrareal APRN.AQUACULTURE AND FISHERIES PROFESSOR [address] [place] [address] [place] [address] Nurse Practitioner Hematology/Oncology 10/24/23 Vicente Sanchez MD [address] [place] [address] [place] [address] Physician Hematology/Oncology 10/24/23 Italia Springer, BEV [address] [facility] [place] [address] Specialty Nuclear Radiation Engineer Hematology/Oncology 10/24/[address] [place] [address] [place] [address] Registered Dietitian Nutrition 11/05/23 Source Comments (unrecognize d section and content) In the event this informatio n is protected by the Federal Confidentiality of Alcohol and Drug Abuse Patient Records regulations: The Federal rules restrict any use of the information to criminally investigate or prosecute any alcohol or drug abuse patient.[facility] the event this information is protected by the Federal Confidentiality of Alcohol and Drug Abuse Patient Records regulations: The Federal rules restrict any use of the information to criminally investigate or prosecute any alcohol or drug abuse patient.[facility] HospitalIn the event this information is protected by the Federal Confidentiality of Alcohol and Drug Abuse Patient Records regulations: The Federal rules restrict any use of the information to criminally investigate or prosecute any alcohol or drug abuse patient.[facility] HospitalIn the event this information is protected by the Federal Confidentiality of Alcohol and Drug Abuse Patient Records regulations: The Federal rules restrict any use of the information to criminally investigate or prosecute any alcohol or drug abuse patient.[facility] HospitalIn the event this information is protected by the Federal Confidentiality of Alcohol and Drug Abuse Patient Records regulations: The Federal rules restrict any use of the information to criminally investigate or prosecute any alcohol or drug abuse patient.[facility] the event this information is protected by the Federal Confidentiality of Alcohol and Drug Abuse Patient Records regulations: The Federal rules restrict any use of the information to criminally investigate or prosecute any alcohol or drug abuse patient.[facility] HospitalIn the event this information is protected by the Federal Confidentiality of Alcohol and Drug Abuse Patient Records regulations: The Federal rules restrict any use of the information to criminally investigate or prosecute any alcohol or drug abuse patient.[facility] HospitalIn the event this information is protected by the Federal Confidentiality of Alcohol and Drug Abuse Patient Records regulations: The Federal rules restrict any use of the information to criminally investigate or prosecute any alcohol or drug abuse patient.[facility] HospitalIn the event this information is protected by the Federal Confidentiality of Alcohol and Drug Abuse Patient Records regulations: The Federal rules restrict any use of the information to criminally investigate or prosecute any alcohol or drug abuse patient.[facility] HospitalIn the event this information is protected by the Federal Confidentiality of Alcohol and Drug Abuse Patient Records regulations: The Federal rules restrict any use of the information to criminally investigate or prosecute any alcohol or drug abuse patient.[facility] HospitalIn the event this information is protected by the Federal Confidentiality of Alcohol and Drug Abuse Patient Records regulations: The Federal rules restrict any use of the information to criminally investigate or prosecute any alcohol or drug abuse patient.[facility] HospitalIn the event this information is protected by the Federal Confidentiality of Alcohol and Drug Abuse Patient Records regulations: The Federal rules restrict any use of the information to criminally investigate or prosecute any alcohol or drug abuse patient.[facility] HospitalIn the event this information is protected by the Federal Confidentiality of Alcohol and Drug Abuse Patient Records regulations: The Federal rules restrict any use of the information to criminally investigate or prosecute any alcohol or drug abuse patient.[facility] HospitalIn the event this information is protected by the Federal Confidentiality of Alcohol and Drug Abuse Patient Records regulations: The Federal rules restrict any use of the information to criminally investigate or prosecute any alcohol or drug abuse patient.[facility] HospitalIn the event this information is protected by the Federal Confidentiality of Alcohol and Drug Abuse Patient Records regulations: The Federal rules restrict any use of the information to criminally investigate or prosecute any alcohol or drug abuse patient.[facility] HospitalIn the event this information is protected by the Federal Confidentiality of Alcohol and Drug Abuse Patient Records regulations: The Federal rules restrict any use of the information to criminally investigate or prosecute any alcohol or drug abuse patient.[facility] Reason for Visit (unrecogniz ed section and content) Reason Comments Consult Reason Comments Consult Specialty Diagnoses / Procedures Referred By Contac t Referred To Contact Oncology Diagnoses Malignant neoplasm of urinary bladder, unspecified site (HCC) Procedures CONSULT TO ONCOLOGY OFFICE/OUTPATIENT [facility] 60 MINUTES Venkatesh Small MD [address] [place] [address] Referral ID Status Reason Start Date Expiration Date V isits Requested Visits Authorized [id number] Closed PCP Requested Referral 10/16/2023 10/15/2024 1 1 Reason Comments Results Reason Comments Care Coordination Antiemetics Reason Comments Radiology Pre Procedure Instructions Reason Comments Care Coordination Nutritional Consult Reason Comments First Time Treatment Education Gemcitabi ne & Cisplatin Reason Comments Nutrition Assessment Reason Comments Bladder Cancer Specialty Diagnoses / Procedures Referred By Contac t Referred To Contact Diagnoses Malignant neoplasm of trigone of urinary bladder (HCC) Procedures CISPLATIN 10 MG INJECTION PALONOSETRON HCL GEMCITABINE HCL, 200 MG FOSAPREPITANT INJECTION Vicente Sanchez MD [address] [place] [address] Garcia Treat [facility] [address] [place] [address] Referral ID Status Reason Start Date Expiration Date V isits Requested Visits Authorized [id number] Authorized 10/24/2023 08/12/2024 99 99 Reason Comments ONS Reason Comments Research IRB [id number] Case11 [id number] Informed Consent Reason Comments Care Coordination Pt Question Inactive Administered Medications - up to 3 most recent administrations Administered Medications (un recognized section and content) Medication Order MAR Action Action Date Dose Rate Site CISplatin 72.8 mg in NaCl 0.9% 1,122.8 mL (PLATINOL) 72.8 mg (35 mg/m2 2.08 m2 Treatment Plan BSA from Recorded weight), INTRAVENOUS, Administer over 1 Hours, ONCE, 1 dose, On Sun11/05/23 at 1030, Approx Total Volume: mL EXP: 0930 11/06/23 Hazardous Chemotherapy Drug: Use appropriate PPE. Antineoplastic Vesicant for concentrations greater than 0.4 mg/mL - Antineoplastic Irritant for concentrations less than 0.4 mg/mL. Protect from Light. New Bag/Syringe/Bottl e 11/05/2023 12:10 PM EDT 72.8 mg dexAMETHasone 10 mg in NaCl 0.9% 50 mL (DECADRON) 10 mg, INTRAVENOUS, ONCE, 1 dose, On Sun11/05/23 at 1030, Refrigerate. New Bag/Syringe/Bottl e 11/05/2023 10:23 AM EDT 10 mg fosaprepitant 150 mg in NaCl 0.9% 250 mL (EMEND) 150 mg, INTRAVENOUS, Administer over 30 Minutes, ONCE, 1 dose, On Sun11/05/23 at 1030, Approximate Total Volume = 280 mL Mix in non-DEHP bag - Refrigerate New Bag/Syringe/Bottl e 11/05/2023 10:45 AM EDT 150 mg gemcitabine 2,000 mg in NaCl 0.9% 327.6 mL (GEMZAR) 2,000 mg (rounded from 2,080 mg = 1,000 mg/m2 2.08 m2 Treatment Plan BSA from Recorded weight), INTRAVENOUS, Administer over 30 Minutes, ONCE, 1 dose, On Sun11/05/23 at 1030, EXP: 11/06/23 1800 Hazardous Chemotherapy Drug: Use appropriate PPE. Antineoplastic Irritant. New Bag/Syringe/Bottl e 11/05/2023 11:32 AM EDT 2,000 mg NaCl 0.9% iv bolus 1,000 mL 1,000 mL, INTRAVENOUS, at 999 mL/hr, Administer over 1 Hours, ONCE, 1 dose, On Sun11/05/23 at 1030, Administer prior to chemotherapy. New Bag/Syringe/Bottl e 11/05/2023 10:00 AM EDT 1,000 mL 999 mL/hr NaCl 0.9% iv infusion 999 mL/hr, INTRAVENOUS, Administer over 1 Hours, ONCE, 1 dose, On Sun11/05/23 at 1030, Give after chemotherapy. New Bag/Syringe/Bottl e 11/05/2023 1:20 PM EDT 999 mL/hr 999 mL/hr palonosetron 0.25 mg injection (ALOXI) 0.25 mg, INTRAVENOUS, ONCE, 1 dose, On Sun11/05/23 at 1030, Flush IV line with NS prior to and following administration. Given 11/05/2023 10:23 AM EDT 0.25 mg Inactive Administered Medications - up to 3 most recent administrations Medication Order MAR Action Action Date Dose Rate Site CISplatin 72.8 mg in NaCl 0.9% 1,122.8 mL (PLATINOL) 72.8 mg (35 mg/m2 2.08 m2 Treatment Plan BSA from Recorded weight), INTRAVENOUS, Administer over 1 Hours, ONCE, 1 dose, On Sun11/12/23 at 0930, Approx Total Volume: mL EXP: 11/13/2023 1530 RT Hazardous Chemotherapy Drug: Use appropriate PPE. Antineoplastic Vesicant for concentrations greater than 0.4 mg/mL - Antineoplastic Irritant for concentrations less than 0.4 mg/mL. Protect from Light. New Bag/Syringe/Bottl e 11/12/2023 11:20 AM EDT 72.8 mg dexAMETHasone 10 mg in NaCl 0.9% 50 mL (DECADRON) 10 mg, INTRAVENOUS, ONCE, 1 dose, On Sun11/12/23 at 0930, Refrigerate. New Bag/Syringe/Bottl e 11/12/2023 9:35 AM EDT 10 mg fosaprepitant 150 mg in NaCl 0.9% 250 mL (EMEND) 150 mg, INTRAVENOUS, Administer over 30 Minutes, ONCE, 1 dose, On Sun11/12/23 at 0930, Approximate Total Volume = 280 mL Mix in non-DEHP bag - Refrigerate New Bag/Syringe/Bottl e 11/12/2023 10:01 AM EDT 150 mg gemcitabine 2,000 mg in NaCl 0.9% 327.6 mL (GEMZAR) 2,000 mg (rounded from 2,080 mg = 1,000 mg/m2 2.08 m2 Treatment Plan BSA from Recorded weight), INTRAVENOUS, Administer over 30 Minutes, ONCE, 1 dose, On Sun11/12/23 at 0930, EXP: 11/13/2023 1530 RT Hazardous Chemotherapy Drug: Use appropriate PPE. Antineoplastic Irritant. New Bag/Syringe/Bottl e 11/12/2023 10:34 AM EDT 2,000 mg NaCl 0.9% iv bolus 1,000 mL 1,000 mL, INTRAVENOUS, at 999 mL/hr, Administer over 1 Hours, ONCE, 1 dose, On Sun11/12/23 at 0930, Administer prior to chemotherapy. New Bag/Syringe/Bottl e 11/12/2023 9:30 AM EDT 1,000 mL 999 mL/hr NaCl 0.9% iv infusion 999 mL/hr, INTRAVENOUS, Administer over 1 Hours, ONCE, 1 dose, On Sun11/12/23 at 0930, Give after chemotherapy. New Bag/Syringe/Bottl e 11/12/2023 12:32 PM EDT 999 mL/hr 999 mL/hr palonosetron 0.25 mg injection (ALOXI) 0.25 mg, INTRAVENOUS, ONCE, 1 dose, On Sun11/12/23 at 0930, Flush IV line with NS prior to and following administration. Given 11/12/2023 9:35 AM EDT 0.25 mg FOR RECORDS PERTAINING TO PATIENTS WHO ARE [...] BE BASED ON THE PRIMARY CLINICAL RECORDS. [facility]. provides no warranty or guarantee of the accuracy or completeness of information in this document.
== END 2023-11-13 08:59 | disposition home or self-care (01) ==
LOC: US 08:58
PROVIDERS: PCP Family Medicine; Visit Provider Internal Medicine Hematology & Oncology
DX: C67.0 Malignant neoplasm of trigone of bladder (principal)
CPT/HCPCS: 76770

== ENCOUNTER 2024-03-24 11:31 | Outpatient (OUT) | payer MEDICAID, SELFPAY ==
--- NOTE | 2024-03-24 11:38 | XR_ITS ---
The [address] [address] Patient Name: PHILIPPE PHILLIP MRN: [id number] date: 1970 Sex: M Assigned Patient Location: [facility] Current Patient Location: Accession/Order Number: [id number] Exam Date: 03/24/2024 11:42 Report Date: 03/26/2024 06:49 At the request of: NON-STAFF PHYSICIAN Procedure: XR abdomen 1V EXAMINATION: XR abdomen 1V HISTORY: Displacement Of Ureteral Stent T83.122A COMPARISON: CT abdomen pelvis 09/15/2023 FINDINGS: KIDNEY/URETER - RIGHT: Right ureteral stent with proximal end projecting over reasonable location of the renal pelvis. Distal end is folded with coiled and at level of L5 vertebral body. KIDNEY/URETER - LEFT: No visible renal or ureteral calcifications. PELVIS: Pelvic calcifications favor phleboliths. BOWEL: No abnormal dilation or deviation. BONES: No acute abnormality. OTHER: Negative. No abnormal gaseous collections. XR/XR abdomen 1V IMPRESSION: 1. Distal end of right ureteral stent appears to be within the mid ureter. Electronically authenticated by: BRONWYN NUNN Date: 03/26/2024 06:49
== END 2024-03-24 11:32 | disposition home or self-care (01) ==
LOC: RAD 11:32
PROVIDERS: PCP Family Medicine
DX: T83.122A Displacement of indwelling ureteral stent, initial encounter (principal)
CPT/HCPCS: 74018

== ENCOUNTER 2024-04-07 12:02 | Outpatient (OUT) | payer MEDICAID, SELFPAY ==
--- NOTE | 2024-04-07 13:08 | CT_ITS ---
[address] [address] Patient Name: PHILIPPE PHILLIP MRN: [id number] date: 1970 Sex: M Assigned Patient Location: CT Current Patient Location: Accession/Order Number: [id number] Exam Date: 04/07/2024 13:05 Report Date: 04/08/2024 07:25 At the request of: NON-STAFF PHYSICIAN Procedure: CT abdomen pelvis wo con EXAMINATION: CT abdomen pelvis wo con HISTORY: Malignant Neoplasm Of Urinary Bladder, Nausea ; lower abdominal pain; history of bladder cancer and cystectomy COMPARISON: CT abdomen pelvis 09/15/2023 TECHNIQUE: Axial, Coronal, and Sagittal images were obtained without and/or with IV contrast as indicated by examination type. Dose reduction techniques were achieved by using automated exposure control and/or adjustment of mA and/or kV according to patient size and/or use of iterative reconstruction technique. FINDINGS: LUNG BASES: No visible pulmonary or pleural disease. LIVER: No enlargement, atrophy, suspicious density, or significant focal lesion. BILIARY: No dilatation or calcification. PANCREAS: No lesion, fluid collection, or abnormal duct dilatation. SPLEEN: No enlargement or focal lesion. ADRENALS: No mass or enlargement. KIDNEYS: Right hydronephrosis and hydroureter with ureteral stent in place. Moderate atrophy of right kidney when compared to left. Mild left hydronephrosis and hydroureter. BOWEL/MESENTERY: No visible mass, obstruction, or bowel wall thickening. AORTA/VASCULAR: No aneurysm or dissection. RETROPERITONEUM: No mass or adenopathy. LYMPH NODES: No adenopathy. URINARY BLADDER: Suspect creation of neobladder via a loop of bowel. Right ureteral stent is present within proximal anterior aspect of the loop of bowel/bladder; no appreciable obstruction. No focal wall thickening or free fluid. PELVIC ORGANS: No visible mass. Pelvic organs appropriate for patient age. ABDOMINAL WALL: No mass or hernia. BONES: No bony lesion or fracture. OTHER: Negative. CT/CT abdomen pelvis wo con IMPRESSION: 1. Right hydronephrosis and moderate renal atrophy. Right ureteral stent in place which terminates within proximal aspect of the neobladder. No specific cause of persistent hydronephrosis. 2. Mild left hydronephrosis. Electronically authenticated by: BRONWYN NUNN Date: 04/08/2024 07:25
== END 2024-04-07 12:03 | disposition home or self-care (01) ==
LOC: CT 12:02
PROVIDERS: PCP Family Medicine
DX: C67.9 Malignant neoplasm of bladder, unspecified (principal); R11.0 Nausea; N13.30 Unspecified hydronephrosis
CPT/HCPCS: 74176

== ENCOUNTER 2024-10-01 09:28 | Outpatient (OUT) | payer MEDICAID, SELFPAY ==
[2024-10-01 09:58] LABS: Bilirubin Urine NEGATIVE (NEGATIVE); Blood Urine TRACE-I (NEGATIVE); Clarity Urine SL CLOUDY (CLEAR); Color Urine LT. YELLOW (YELLOW); Glucose Urine UA NEGATIVE (NEGATIVE); Ketones Urine NEGATIVE (NEGATIVE); Leukocyte Esterase Urine MODERATE (NEGATIVE); Nitrite Urine NEGATIVE (NEGATIVE); Protein Urine TRACE mg/dL (NEG/TRACE); Urobilinogen Urine 0.2 EU/dL (0.2-1.0)
[2024-10-01 10:10] LABS: Bacteria Urine MODERATE #/HPF (NONE SEEN); WBC Urine 20-50 #/HPF (NONE SEEN)
[2024-10-01 10:11] LABS: Cast Seen? NONE SEEN #/LPF (NONE SEEN); Crystals Seen? None Seen #/HPF (None Seen); Mucus Urine TRACE (NONE SEEN); Squamous Epithelial Cell Urine RARE #/LPF (NONE/RARE)
== END 2024-10-01 09:29 | disposition home or self-care (01) ==
LOC: LAB 09:29
PROVIDERS: PCP Family Medicine; Visit Provider Family Medicine
DX: Z00.00 Encounter for general adult medical examination without abnormal findings (principal)
CPT/HCPCS: 81001; 87086; 87150